=== PATIENT | male | born 1935 | race African-American/Black ===

== ENCOUNTER 2017-06-13 15:32 | Inpatient (IN) ==
[2017-06-13] MEDS ORDERED: NS 1,000 ML IV ONE (15:54)
--- NOTE | 2017-06-13 15:54 | Emergency Department Report ---
General Adult HPI - General Chief complaint: Medical Emergency Stated complaint: incoherent, dehydration Time Seen by Provider: 06/13/17 15:54 - Related Data Home Medications Medication Instructions Recorded Confirmed Sotalol HCl [Sotalol] 80 mg PO DAILY #2 tab 05/29/13 Warfarin Sodium [Coumadin] 5 mg PO #0 tab 06/20/13 Flomax (tamsulosin) 0.4 mg capsule 0.4 mg PO DAILY cap 10/07/16 dnmllhli-oug-hhpcy acid 0.4 1 tab PO QAM 10/07/16 mg-lycopene 300 mcg-lutein 250 mcg tablet Allergies Allergy/AdvReac Type Severity Reaction Status Date / Time No Known Allergies Allergy Verified 06/13/17 15:40 Course Vital Signs Temperature 98.2 F 06/13/17 15:40 Pulse Rate 105 H 06/13/17 15:40 Respiratory Rate 06/13/17 15:40 Blood Pressure 70/46 06/13/17 15:40 Pulse Oximetry 97 06/13/17 15:40 Temperature 98.2 F 06/13/17 15:40 Pulse Rate 105 H 06/13/17 15:40 Respiratory Rate 06/13/17 15:40 Blood Pressure 70/46 06/13/17 15:40 Pulse Oximetry 97 06/13/17 15:40 Disposition Prescriptions: No Action Sotalol HCl [Sotalol] 80 mg PO DAILY #2 tab Warfarin Sodium [Coumadin] 5 mg PO #0 tab ovrxckzh-zbj-kktxv acid 0.4 mg-lycopene 300 mcg-lutein 250 mcg tablet 1 tab PO QAM Flomax (tamsulosin) 0.4 mg capsule 0.4 mg PO DAILY cap Referrals: Pedro Mane II, MD [Primary Care Provider] -
[2017-06-13] MEDS: SALINE FLUSH 10ml SYRINGE IVF PRN ×2 (15:58→18:55)
--- OUTSIDE RECORDS SUMMARY | 2017-06-13 16:03 | External Medical Summary ---
:1935 Author Organization [employer] Care Team Providers Name Role Phone Breanna Dempsey Provider Role Unavailable Allergies, Adverse Reactions, Alerts Substance Reaction Event Type N.K.D.A. 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 Medications Medication Code Code Instructions Start End Date Status Dosage System Date Coumadin NDC 58420-49 5 MG Orally Once as dir 72-01 a day Hydrocodone-Gus NDC 15462-21 5-325 MG Orally 1 tablet as taminophen 65-01 prn needed Coumadin NDC 54910-90 5 MG Orally as as directed 24-35 directed Sotalol HCl NDC 18358-22 80 MG Orally 1 tablet 61-01 twice a day Tamsulosin HCl NDC 48380-78 0.4 MG Orally 1 capsule 30 38-01 Once a day minutes after the same meal each day Procedures Procedure Coding System Code Date Office Visit, Est Pt., Level 3 CPT-4 00007 Feb 05, 2016 ELECTROCARDIOGRAM, COMPLETE CPT-4 51717 Feb 05, 2016 Vital Signs Date/Time: Feb 05, 2016 BMI 20.95 Index Weight 146 lbs Height 70 in Cardiac Monitoring Heart Rate 85 /min Oximetry 98% % Blood Pressure Diastolic 70 mm Hg Blood Pressure Systolic 130 mm Hg Results No Known Results Summary Purpose [employer] Submission
--- OUTSIDE RECORDS SUMMARY | 2017-06-13 16:03 | External Medical Summary ---
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
--- OUTSIDE RECORDS SUMMARY | 2017-06-13 16:03 | External Medical Summary ---
[...] Medications Results No Known Results Summary Purpose [employer] Submission
--- NOTE | 2017-06-13 16:51 | CT Scan Report ---
EXAM: CT head/brain wo con COMPARISON: 08/24/2013. 08/19/2010. 09/08/2005. HISTORY: altered mental status [place] [facility] [place]CHNI[place]: Without IV contrast, axial images were obtained through the brain and reviewed in brain, soft tissue, bone, and subdural windows. The current CT scan was performed using radiation dose-reduction techniques. FINDINGS:There is again seen a hyperdense suprasellar mass with bony erosive changes to the sella turcica extending from the sella into the suprasellar region and into the posterior left frontal region. This measures at least 4 cm AP x 2.6 cm transverse and previously measured 3.5 cm AP x 2.3 cm transverse and appears more prominent than prior exam. The CSF spaces are prominent likely related to atrophy in keeping with age. Periventricular deep white matter hypodensities are noted likely related to small vessel ischemic disease. The quadrigeminal plate cisterns are intact. The worley-white junctions are distinct. No sulcal effacement is identified. The basal ganglia, posterior fossa and brainstem region appear unremarkable. No osseous abnormalities are identified. The paranasal sinuses and mastoid air cells are clear. IMPRESSION: 1. There is again seen a hyperdense sella and suprasellar mass extending into the left posterior frontal region. This appears more prominent than prior exam and may be related to a pituitary macroadenoma or meningioma. 2. Atrophy in keeping with age. 3.. Periventricular deep white matter hypodensities are noted likely related to small vessel ischemic disease. Note: This report was generated soon after the exam was performed and is immediately available to the ordering clinician on 06/13/2017 4:46 PM. .
--- NOTE | 2017-06-13 17:23 | XRay Report ---
EXAM: XR chest 2V COMPARISON: 06/20/2013. HISTORY: altered mental status . FINDINGS:EKG leads and wires project over the chest. Pacemaker and pacer wires are in place and are stable. Sternotomy wires are in place. The cardiomediastinal silhouette is within limits of normal. The pulmonary vascularity appears unremarkable. The lungs are clear. There is no evidence for pleural effusion. There is no evidence for a pneumothorax. No osseous abnormalities are identified. IMPRESSION: Unremarkable exam. No acute process identified. LOCATION OF DICTATION: [facility] – [place] .
--- NOTE | 2017-06-13 18:07 | History & Physical Report ---
History of Present Illness Date: 06/13/17 Chief complaint: incoherent HPI: "Neema" Tori is a 81 year old male who was in his typical state of health until his found him "incoherent" this morning. He was confused and not talking coherently. His stepson, who was able to provide some PMH and ROS, stated that Neema complained of not feeling well today and hasn't been eating/ drinking well today. He denies any known falls/trauma. He states that his gait is steady, he's just weak. He's had something similar happen years ago, when his symptoms were actually worse than currently -- at that time his symptoms were attributed to a medication effect. Neema has a completely negative ROS, and his stepson denies other witnessed symptoms. Family took him to the ED, where he was hypotensive with BP of 70/46 -- this improved to 124/57 after 1L fluid bolus. Labs: leukopenia and microcytic anemia (WBC 3.1, hgb 9.5); INR was therapeutic at 2.0; chemistries were unremarkable except for mildly elevated BUN (21), creatinine at upper limits of normal (1.5), and total bili of 1.4. BNP was 4230. Lactate was normal at 1.5. CXR was negative for acute findings. 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 Given his acute encephalopathy and hemodynamic instability, he was admitted to observation status under the hospitalist service. Review of Systems ROS unobtainable: due to mental status - Constitutional Constitutional: Absent: chills, fever(s), weight loss - EENMT Eyes: Absent: change in vision Nose: Absent: obstruction Mouth/Throat: Absent: sore throat, changes in swallowing - Cardiovascular Cardiovascular: Absent: chest pain, palpitations Rhythm: Absent: abnormal rhythm Vascular: Absent: pedal edema - Respiratory Respiratory: Absent: cough, dyspnea - Gastrointestinal Gastrointestinal: Absent: abdominal pain, diarrhea, nausea, vomiting - Genitourinary Genitourinary: Absent: dysuria, hematuria - Musculoskeletal Musculoskeletal: Present: muscle weakness. Absent: abnormal gait, back pain - Integumentary/Breasts Integumentary: Absent: rash, wounds - Neurological Neurological: Present: confusion, weakness. Absent: abnormal gait, dizziness, frequent falls, numbness, paresthesias - Psychiatric Psychiatric: Absent: anxiety, depression - Endocrine Endocrine: Absent: palpitations - Hematologic/Lymphatic Hematologic/Lymphatic: Present: easy bleeding - Allergic/Immunologic Allergic/Immunologic: Absent: seasonal rhinorrhea Past Medical History Pituitary adenoma (inoperable) A-fib, on Coumadin CAD BPH Surgical History: Pacemaker. CABG Family History Updates: Both parents had Alzheimer's. Father around age 80 ; mother later in her 80s. - Social History Smoking status: Current every day smoker (2-3 cigarettes daily, but he doesn't inhale) Substance use type: does not use Alcohol intake frequency: former alcohol drinker (quit 30 years ago) Household members: spouse Current occupational status: employed Current occupation: [employer] Social history: PCP: Dr. Mane CV: ? Medications Home Medications Medication Instructions Recorded Confirmed Type Warfarin Sodium [Coumadin] 5 mg PO DAILY #0 tab 06/20/13 06/13/17 History Ascorbate Calcium [Vitamin C] 500 mg PO DAILY 06/13/17 06/13/17 History Azithromycin [Azithromycin] 250 mg PO DAILY 06/13/17 06/13/17 History Ferrous Sulfate [Iron] 325 mg PO DAILY 06/13/17 06/13/17 History Finasteride [Proscar] 5 mg PO DAILY 06/13/17 06/13/17 History Omeprazole 40 mg PO DAILY 06/13/17 06/13/17 History PredniSONE [Deltasone 20 mg] 20 mg PO DAILY 06/13/17 06/13/17 History Sotalol [Betapace] 80 mg PO BID 06/13/17 06/13/17 History Tamsulosin [Flomax] 0.4 mg PO DAILY 06/13/17 06/13/17 History Allergies Allergy/AdvReac Type Severity Reaction Status Date / Time No Known Allergies Allergy Verified 06/13/17 15:40 Exam Vital Signs: Temperature 98.2 F 06/13/17 15:40 Pulse Rate 78 06/13/17 17:42 Respiratory Rate 20 06/13/17 17:42 Blood Pressure 124/57 06/13/17 17:42 Pulse Oximetry 100 06/13/17 17:42 - Constitutional Present: no acute distress, well nourished, well developed, thin - Routine HEENT Exam Head: Present: normocephalic, atraumatic Eye: Present: EOMI, PERRL, conjunctival icterus (mild). Absent: scleral injection ENT: Present: mucous membranes moist Comments: pt only agreed to open his mouth for <1 sec., limiting oral inspection - Routine Neck Exam Present: supple - Routine Respiratory Exam Present: CTA bilaterally - Routine Cardiovascular Exam Present: murmur (3/6), irregularly irregular - Routine Abdominal Exam Present: soft, normoactive bowel sounds, non distended, non tender - Routine Extremities Exam Present: no edema, pulses intact. Absent: calf tenderness - Routine Skin Exam Present: intact, dry, warm - Routine Neurological Exam Present: alert, CN II-XII intact (grossly; though exam was somewhat limited ), moving all extremities, vision grossly intact, hearing grossly intact, normal speech. Absent: oriented X3 (oriented to person, place. He knew it was June but did not answer what year it was.) - Routine Psychiatric Exam Absent: normal thought process Results - Labs CBC & Chem 7: 06/13/17 15:57 06/13/17 15:57 - Imaging and Cardiology CT scan - head Status: image reviewed by me Additional comments: CT head/brain without contrast IMPRESSION: 1. There is again seen a hyperdense sella and suprasellar mass extending into the left posterior frontal region. This appears more prominent than prior exam and may be related to a pituitary macroadenoma or meningioma. 2. Atrophy in keeping with age. 3.. Periventricular deep white matter hypodensities are noted likely related to small vessel ischemic disease. Chest x-ray Status: image reviewed by me Additional comments: unremarkable Assessment and Plan (1) Encephalopathy acute Current visit: Yes Status: Acute Assessment and Plan: IMPRESSION Acute encephalopathy Hemodynamic instability/hypotension - improved with IVF Underweight Hyperbilirubinemia (POA) Microcytic anemia Pituitary adenoma (inoperable) A-fib, on Coumadin CAD BPH PLAN Admit, obs status. IVF: NS at 125 ml/hr for bp support & hydration. Hold sotalol and meds for BPH. Consult speech therapy d/t encephalopathy Consider MR brain d/t encephalopathy and hx of pituitary adenoma Check prealbumin and TSH d/t low BMI Check iron studies d/t microcytic anemia Consult pharmacy for Coumadin mgt. No known DPOA. Full code at this time per stepson. PCP: Dr. Mane. [place] Assessment as above with: Mild PCM - prealbumin 10.1 DVT Prophylaxis: Coumadin Resuscitation Status: Full Code - Physician Narrative Physician: Russ Quinn MD Narrative: Date: 06/13/17 Time: 1924 Have independently interviewed and examined pt. Chart reviewed. Case discussed with ED physician and my [employer]. Care plan developed with my supervision; agree with above. Not been eating or drinking well the last 2 days. Hasn't been having ab pain, n/ v, or diarrhea. Today, much more confused. Not able to interact verbally as normal-would answer questions with 'It's Tuesday.' Brought to ED for evaluation. Initial BP low, but improved with IVF. Lab unremarkable. CT brain showing sight progression of prior know lesion but no bleeding. Placed in OBS status for hydration and further evaluation. By the time of my interview and exam, patient much more awake, alert, and able to converse. Lungs: decreased, no distress CV: regular with click AB: soft nt/nd Ext: thin and without edema MSE: awake alert Plan: OBS for hydration. Will hold on Flomax due to low BP in ED. PT/OT to evaluate patient's functional status tomorrow. Monitor INR due to warfarin use. Recheck lab in am. Encouraging that patient is starting to become more awake and alert-hope for continued improvement. Hospital Course Summary Disclaimer: The visit summary below is not to be considered part of the above Progress Note. Hospital Course: 06/13 Admit, obs status. IVF: NS at 125 ml/hr for bp support & hydration. Hold sotalol and meds for BPH. Consult speech therapy d/t encephalopathy Consider MR brain d/t encephalopathy and hx of pituitary adenoma Check prealbumin and TSH d/t low BMI Check iron studies d/t microcytic anemia Consult pharmacy for Coumadin mgt. No known DPOA. Full code at this time per stepson. PCP: Dr. Mane.
[2017-06-13] MEDS ORDERED: WARFARIN - PHARMACY CONSULT MC ONE ×2 (18:26→19:28)
[2017-06-13] MEDS ORDERED: NS 1,000 ML IV SCH (18:30)
--- NOTE | 2017-06-13 18:46 | Pharmacy Consult ---
Pharmacy Consult-Warfarin - Consult Information Warfarin consult noted by Dahlia Lynne APRN for Mr Valle. Med rec shows he had a 5mg warfarin dose this morning. Will wait until tomorrow to dose again. Thank you.
[2017-06-13] MEDS ORDERED: BISACODYL 10 MG SUPPOSITORY RECTALLY PRN (19:28)
[2017-06-13] MEDS ORDERED: ONDANSETRON 4 MG/2 ML INJECTION IVP PRN (19:28)
[2017-06-13] MEDS ORDERED: ACETAMINOPHEN 500 MG TABLET PO PRN (19:28)
[2017-06-13] MEDS ORDERED: POLYETHYL GLYCOL 3350 17gm PACKET PO PRN (19:28)
[2017-06-13] MEDS: NS 1,000 ML IV SCH (20:25)
[2017-06-13] MEDS ORDERED: SOTALOL 80 MG TABLET PO SCH (21:00)
[2017-06-14] MEDS: NS 1,000 ML IV SCH ×3 (02:46→20:57)
[2017-06-14] MEDS ORDERED: WARFARIN - PHARMACY CONSULT MC ONE (06:45)
[2017-06-14] MEDS ORDERED: OMEPRAZOLE 20 MG CAPSULE PO SCH (06:45)
[2017-06-14] MEDS ORDERED: FERROUS SULFATE 324 MG TABLET PO SCH (08:00)
--- NOTE | 2017-06-14 08:29 | Pharmacy Consult ---
Pharmacy Consult-Warfarin - Laboratory Information 06/14/17 05:02 INR 2.03 H - Consult Information Warfarin consult: day 2 81 y.o. M with history of a. fib and chronic anticoagulation with warfarin. Home warfarin dose: Warfarin 5 mg po daily. goal INR range= 2.0 to 3.0 date INR dose 06/13 2.00 5 mg (taken at home) 06/14 2.03 plan: 5 mg INR is therapeutic. Will give home dose of 5 mg po daily. Pharmacy will monitor and adjust as needed. Thank you, Silvia Skinner formerly [facility]
[2017-06-14] MEDS: SOTALOL 80 MG TABLET PO SCH ×2 (08:32→20:57)
[2017-06-14] MEDS ORDERED: NON-FORMULARY MEDICATION 1 EACH EACH (Ferrous Sulfate [Iron] 325 MG) PO SCH (09:00)
[2017-06-14] MEDS ORDERED: NON-FORMULARY MEDICATION 1 EACH EACH (Omeprazole [Omeprazole] 40 MG) PO SCH (09:00)
[2017-06-14] MEDS ORDERED: WARFARIN 5 MG TABLET PO SCH (12:00)
--- NOTE | 2017-06-14 12:17 | Progress Note ---
- Date 06/14/17 Subjective: Neema was awake, alert and oriented x2. He responded better compared to yesterday. He was able to tell me he was in the hospital, but when I asked what city he was in he replied "the hospital", twice. His nurse stated that earlier today he was very drowsy, and was unable to tell him where he was. He's been ambulatory and had not appeared to be weak. Neema denies any chest pain, dyspnea , headache, weakness, or dizziness. Objective Vital signs: Temperature 99.7 F 06/14/17 07:56 Pulse Rate 80 06/14/17 08:32 Respiratory Rate 18 06/14/17 07:56 Blood Pressure 134/64 06/14/17 07:56 Pulse Oximetry 97 06/14/17 07:56 Height/Weight/BMI: Height 1.75 m Weight 59.7 kg Body Mass Index 19.5 - Constitutional Present: no acute distress, well nourished, well developed, thin - Routine HEENT Exam Head: Present: normocephalic Eye: Present: EOMI. Absent: conjunctival icterus, scleral injection ENT: Present: mucous membranes moist - Routine Respiratory Exam Present: CTA bilaterally - Routine Cardiovascular Exam Present: murmur, irregularly irregular - Routine Abdominal Exam Present: soft, normoactive bowel sounds, non distended, non tender - Routine Extremities Exam Present: no edema, pulses intact - Routine Back/Spine/Pelvis Exam Back/Spine: Present: full ROM - Routine Musculoskeletal Exam Musculoskeletal: Present: moving extremities well - Routine Skin Exam Present: intact, dry, warm - Routine Neurological Exam Present: alert, CN II-XII intact, moving all extremities, vision grossly intact , hearing grossly intact, normal speech. Absent: oriented X3, motor deficit, facial asymmetry - Routine Psychiatric Exam Present: cooperative Results - Labs CBC & Chem 7: 06/14/17 05:02 06/14/17 05:02 Assessment and Plan (1) Encephalopathy acute Current visit: Yes Status: Acute Assessment and Plan: IMPRESSION Acute encephalopathy Possible GI bleed Hemodynamic instability/hypotension - improved with IVF Underweight with mild PCM Hyperbilirubinemia (POA) Pancytopenia, chronic Pituitary macroadenoma (inoperable) A-fib, on Coumadin Hx of aortic valve replacement (1990); pacemaker (2002) CKD stage III BPH PLAN Able to access [facility] chart today: PMH of iron-def anemia, CKD stage 3, A-fib, aortic valve replacement (not CABG) microscopic hematuria; ulcer several years ago, attributed to EtOH (quit drinking in 1988). He follows with Dr. Ch for pituitary macroadenoma, who recommended conservative tx in 2005 (no known f/ u since that time). He had an echo on 01/27/16, read by Dr. Oliva at [facility], showing EF 55-60%, mild LVH, biatrial enlargement, trace MR, mild TR , prosthetic aortic valve. He was dx with bronchitis on 05/11/17 and was treated with azithromycin and prednisone taper. He saw Dr. Fredi Carr for the first time on 05/26/17 for hematuria and prostatitis and was started on finasteride in addition to Flomax and cystoscopy was set up. CBCs dating back through 2015 revealed pancytopenia, with typical hgb of 10, platelets 110-150. I also spoke with Shanta Valle, Neema's . She states that he used to have hypoglycemia and he became very confused and weak and his thought he had a seizure. However, this is when he was drinking alcohol and it hasn't occurred since he quit drinking. She doesn't think he's seen anyone for his pancytopenia , but reports that he's had hematuria for 4-6 weeks. She also reports that he hasn't been eating well recently, and c/o stomach pain on 06/11/17, and only had a bowl of chicken soup on 06/12/17 since he began complaining of stomach pain. He 's been having diarrhea, which has been watery and black in color (but she also noted that he has been on iron tablets). She doesn't think he's ever had a colonoscopy (he was once scheduled for one but he didn't have it done); she also doesn't think he's ever had an EGD. Encephalopathy improving, but still persists. BUN and creatinine improved with IVF. Iron studies pending, hgb decreased from 9.5 to 8.3. Speech evaluation pending. INR therapeutic. Will start checking regular blood sugars. Check stool for occult blood, possible GI bleed with 's report of black-colored diarrhea and abdominal pain. Consider surgical consultation. Check GI panel. Hold Coumadin. Continue IVF. Chronic pancytopenia -- likely r/t alcohol use, but may need further heme evaluation. Dr. Yung has been consulted and evaluated the patient. Possible underlying dementia, but more than likely encephalopathy is metabolic in nature, ie dehydration. Change status to inpatient for ongoing encephalopathy and possible GI bleed. DVT Prophylaxis: SCD's GI Prophylaxis: other Resuscitation Status: Full Code - Time spent with patient Time with patient PN: 50 minutes (and discussing with spouse, Dr. Yung, and Dr. Gimenez) - Physician Narrative Physician: Dona Gimenez MD Narrative: Date: 06/14/17 Time: 1844 I have independently evaluated and examined this patient. I reviewed the chart, the patient's history, and the POSTING CLERK/PA's documented findings as above. We discussed and formulated the assessment and plan as above with additions as below: Neema was up in a chair when seen he denied dyspnea or pain although winced frequently associated with abdominal gurgling. He reported that his abdomen makes noise like that some time. He could not identify where he was and appeared distracted. NAD, confused Respirations nonlabored with clear breath sounds. Regular rhythm, no mechanical click. Abdomen soft, distended, hyperactive bowel sounds Results of prior workups reviewed with Rebecca Lynne; patient had a renal CT in May at which time the spleen was not enlarged and liver was described as having normal contours. No ascites was reported. Dr. Yung recommended reassessing macroadenoma and consideration of endocrine consultation. Chest x-ray reviewed by myself-NAD. Hold warfarin-stools have not been grossly bloody or melanotic per nursing report. Continue to monitor hemoglobin. If lower tomorrow will consult surgery. Hospital Course Summary Disclaimer: The visit summary below is not to be considered part of the above Progress Note. Hospital Course: 06/13/17 Admit, obs status. IVF: NS at 125 ml/hr for bp support & hydration. Hold sotalol and meds for BPH. Consult speech therapy d/t encephalopathy Consider MR brain d/t encephalopathy and hx of pituitary adenoma Check prealbumin and TSH d/t low BMI Check iron studies d/t microcytic anemia Consult pharmacy for Coumadin mgt. No known DPOA. Full code at this time per fadyon. PCP: Dr. Mane. 06/14/17 Able to access [facility] chart today: PMH of iron-def anemia, CKD stage 3, A-fib, aortic valve replacement (not CABG) microscopic hematuria; ulcer several years ago, attributed to EtOH (quit drinking in 1988). He follows with Dr. Ch for pituitary macroadenoma, who recommended conservative tx in 2005 (no known f/ u since that time). He had an echo on 01/27/16, read by Dr. Oliva at [facility], showing EF 55-60%, mild LVH, biatrial enlargement, trace MR, mild TR , prosthetic aortic valve. He was dx with bronchitis on 05/11/17 and was treated with azithromycin and prednisone taper. He saw Dr. Fredi Carr for the first time on 05/26/17 for hematuria and prostatitis and was started on finasteride in addition to Flomax and cystoscopy was set up. CBCs dating back through 2015 revealed pancytopenia, with typical hgb of 10, platelets 110-150. I also spoke with Shanta Valle, Neema's . She states that he used to have hypoglycemia and he became very confused and weak and his thought he had a seizure. However, this is when he was drinking alcohol and it hasn't occurred since he quit drinking. She doesn't think he's seen anyone for his pancytopenia , but reports that he's had hematuria for 4-6 weeks. She also reports that he hasn't been eating well recently, and c/o stomach pain on 06/11/17, and only had a bowl of chicken soup on 06/12/17 since he began complaining of stomach pain. He 's been having diarrhea, which has been watery and black in color (but she also noted that he has been on iron tablets). She doesn't think he's ever had a colonoscopy (he was once scheduled for one but he didn't have it done); she also doesn't think he's ever had an EGD. Encephalopathy improving, but still persists. BUN and creatinine improved with IVF. Iron studies pending, hgb decreased from 9.5 to 8.3. Speech evaluation pending. INR therapeutic. Will start checking regular blood sugars. Check stool for occult blood, possible GI bleed with 's report of black-colored diarrhea and abdominal pain. Consider surgical consultation. Check GI panel. Hold Coumadin. Continue IVF. Chronic pancytopenia -- likely r/t alcohol use, but may need further heme evaluation. Dr. Yung has been consulted and evaluated the patient. Possible underlying dementia, but more than likely encephalopathy is metabolic in nature, ie dehydration. Change status to inpatient for ongoing encephalopathy and possible GI bleed. Addendum entered and electronically signed by Rebecca Lynne APRN 06/14/17 14: 22: , Shanta, would like periodic updates. She prefers to be called at her home [phone] but if she doesn't answer there we can try her cell phone at [phone].
[2017-06-14 16:44] VITALS: BMI 19.4
--- NOTE | 2017-06-14 17:40 | Consultation ---
DATE OF CONSULTATION 06/14/[address] Gimenez CHIEF COMPLAINT Confusion. HISTORY OF PRESENT ILLNESS Patient is a 81-year-old male with history of dementia, a large, nonoperable pituitary macroadenoma, coronary artery disease, atrial fibrillation and prostate problem. The patient presented with increased confusion and mental status change prior to admission. The patient has been complaining of diarrhea and dehydration as per his . The patient's condition has improved gradually during admission. He has had no focal weakness or numbness. A CT of the head done on June 13 showed evidence of the suprasellar mass lesion corresponding with the pituitary macroadenoma. This appeared to be more prominent than the prior examination. There was also increased brain atrophy associated with aging and dementia. Patient's lab work showed severe neutropenia and anemia problem. His BUN was elevated. His sodium level was normal. His urine testing showed mild signs of infection including increased bacteria in the urine. On physical examination the patient was awake, alert, oriented to self and condition. He has difficulty with time and place. The patient's speech was slow and articulate. His motor examination was normal bilaterally, graded as 5- /5 bilaterally. Sensory examination was symmetrical to light touch and pinprick. Deep tendon reflexes were 2/4. Plantar reflexes were in flexion bilaterally. Coordination for [id number] were slow and slightly dysmetric bilaterally. IMPRESSION Metabolic encephalopathy associated with history of dehydration, mild urine infection and dementia symptoms. There are no signs of stroke on examination and on the CT of the head.. The patient has a large macroadenoma lesion which is not operable as per Neurosurgery. PLAN 1. Continue with treatment for dehydration and rule out any sepsis. The patient may benefit from long-term treatment for dementia including the usage of Aricept and Namenda. 2. The patient may follow up with Neurosurgery regarding his pituitary macroadenoma. He may also benefit from having an Endocrinology evaluation for that. [facility]
[2017-06-15] MEDS: NS 1,000 ML IV SCH ×4 (06:43→17:02)
[2017-06-15] MEDS: SOTALOL 80 MG TABLET PO SCH ×2 (07:02→21:53)
[2017-06-15] MEDS: OMEPRAZOLE 40 MG PO SCH (07:03)
[2017-06-15] MEDS: FERROUS SULFATE 324 MG PO SCH (09:28)
--- NOTE | 2017-06-15 12:50 | XRay Report ---
INDICATION: decreased breath sounds, fever PROCEDURE: CHEST 2-VIEWS UPRIGHT (PA & LAT) Encounter: Initial COMPARISON: June 13, 2017 FINDINGS: Suggestion of fine hazy opacity in the right upper lobe with mild interstitial prominence. No lobar consolidation. No pleural effusion or pneumothorax. Heart size and mediastinal contours are stable. Prior CABG with a left pacemaker. Impression: Fine interstitial infiltrates could represent mild edema or atypical/viral pneumonia. .
--- NOTE | 2017-06-15 19:06 | Progress Note ---
- Date 06/15/17 Subjective: Mr. Valle reports he feels better today. He denies dyspnea, nausea, diarrhea, dysuria, fever, chills, or weakness. He denies chronic headaches or pain of any sort. He reports his appetite is better although he acknowledges he wasn't eating very well for several days. Objective Vital signs: Temperature 99.7 F 06/15/17 07:17 Pulse Rate 63 06/15/17 15:56 Respiratory Rate 18 06/15/17 15:56 Blood Pressure 112/61 06/15/17 15:56 Pulse Oximetry 98-RA 06/15/17 15:56 I/O 3760/175 NAD, alert Conjugate gaze, EOMI, conjunctiva clear, oropharynx clear Respirations nonlabored, good airflow, breath sounds clear anteriorly/upper posterior kearns Regular rhythm, S1 S2-S2 click Abdomen soft, nontender, and bowel sounds are active Without peripheral edema MAEW Cooperative, fluent speech, oriented to [facility], 2017 Height/Weight/BMI: Height 1.75 m Weight 62.4 kg Body Mass Index 19.4 Results - Labs CBC & Chem 7: 06/15/17 05:27 06/15/17 05:27 Labs: INR 2.15 Iron 30, TIBC 245, iron saturation 12% Prolactin 8.9 Hemoccult 1 negative, stool panel including C. difficile negative - Imaging and Cardiology Chest x-ray Status: image reviewed by me (NAD, pacemaker left chest, lungs clear) Assessment and Plan (1) Encephalopathy acute Current visit: Yes Status: Acute Assessment and Plan: IMPRESSION Acute encephalopathy Possible GI bleed, appears unlikely Hemodynamic instability/hypotension -resolved Underweight with mild PCM Hyperbilirubinemia (POA) Pancytopenia, chronic Pituitary macroadenoma (inoperable) A-fib, on Coumadin Hx of aortic valve replacement (1990); pacemaker (2002) CKD stage III BPH PLAN Neema is much more alert today and able to answer questions appropriately and provide history by himself. He has not had any bowel movements today and stools yesterday reported to be negative for blood or melena. Patient reports that he's had low white count for a number of years although all cell lines appear to be dropping progressively. I discussed the option of hematology consult with the patient and subsequently have asked Dr. Shafer to see him regarding progressive pancytopenia. Iron studies consistent with chronic disease. Reassess counts in the morning. Renal function has normalized with fluids; discontinue IV fluids and reassess ability to maintain adequate oral intake. Macroadenoma present, TSH/prolactin normal-likely nonfunctioning. Discussed with Dr. Shafer-planned bone marrow biopsy tomorrow with flow cytometry and cytogenetics. DVT Prophylaxis: Coumadin Resuscitation Status: Full Code - Physician Narrative Narrative: Date: 06/15/17 Time: 1902 Hospital Course Summary Disclaimer: The visit summary below is not to be considered part of the above Progress Note. Hospital Course: 06/13/17 Admit, obs status. IVF: NS at 125 ml/hr for bp support & hydration. Hold sotalol and meds for BPH. Consult speech therapy d/t encephalopathy Consider MR brain d/t encephalopathy and hx of pituitary adenoma Check prealbumin and TSH d/t low BMI Check iron studies d/t microcytic anemia Consult pharmacy for Coumadin mgt. No known DPOA. Full code at this time per henry. PCP: Dr. Mane. 06/14/17 Able to access [place] chart today: PMH of iron-def anemia, CKD stage 3, A-fib, aortic valve replacement (not CABG) microscopic hematuria; ulcer several years ago, attributed to EtOH (quit drinking in 1988). He follows with Dr. Ch for pituitary macroadenoma, who recommended conservative tx in 2005 (no known f/ u since that time). He had an echo on 01/27/16, read by Dr. Oliva at [facility], showing EF 55-60%, mild LVH, biatrial enlargement, trace MR, mild TR , prosthetic aortic valve. He was dx with bronchitis on 05/11/17 and was treated with azithromycin and prednisone taper. He saw Dr. Fredi Carr for the first time on 05/26/17 for hematuria and prostatitis and was started on finasteride in addition to Flomax and cystoscopy was set up. CBCs dating back through 2015 revealed pancytopenia, with typical hgb of 10, platelets 110-150. I also spoke with Shanta Valle, Neema's . She states that he used to have hypoglycemia and he became very confused and weak and his thought he had a seizure. However, this is when he was drinking alcohol and it hasn't occurred since he quit drinking. She doesn't think he's seen anyone for his pancytopenia , but reports that he's had hematuria for 4-6 weeks. She also reports that he hasn't been eating well recently, and c/o stomach pain on 06/11/17, and only had a bowl of chicken soup on 06/12/17 since he began complaining of stomach pain. He 's been having diarrhea, which has been watery and black in color (but she also noted that he has been on iron tablets). She doesn't think he's ever had a colonoscopy (he was once scheduled for one but he didn't have it done); she also doesn't think he's ever had an EGD. Encephalopathy improving, but still persists. BUN and creatinine improved with IVF. Iron studies pending, hgb decreased from 9.5 to 8.3. Speech evaluation pending. INR therapeutic. Will start checking regular blood sugars. Check stool for occult blood, possible GI bleed with 's report of black-colored diarrhea and abdominal pain. Consider surgical consultation. Check GI panel. Hold Coumadin. Continue IVF. Chronic pancytopenia -- likely r/t alcohol use, but may need further heme evaluation. Dr. Yung has been consulted and evaluated the patient. Possible underlying dementia, but more than likely encephalopathy is metabolic in nature, ie dehydration. Change status to inpatient for ongoing encephalopathy and possible GI bleed. 06/15/17 Neema is much more alert today and able to answer questions appropriately and provide history by himself. He has not had any bowel movements today and stools yesterday reported to be negative for blood or melena. Patient reports that he's had low white count for a number of years although all cell lines appear to be dropping progressively. I discussed the option of hematology consult with the patient and subsequently have asked Dr. Shafer to see him regarding progressive pancytopenia. Iron studies consistent with chronic disease. Reassess counts in the morning. Renal function has normalized with fluids; discontinue IV fluids and reassess ability to maintain adequate oral intake. Macroadenoma present, TSH/prolactin normal-likely nonfunctioning.
--- NOTE | 2017-06-15 22:29 | Consultation ---
DATE OF CONSULTATION 06/15/2017 REASON FOR CONSULTATION Pancytopenia. HISTORY OF PRESENT ILLNESS This is a 81-year-old -[place] male patient with history of chronic anemia. His hemoglobin back in 2013 was 10. Initial workup at that time was not diagnostic. Serum protein electrophoresis at that time was normal. Serum B12 was normal. Iron normal. He presented with confusion and was found to have dehydration. He improved with hydration. CBC showed white count 2.6, hemoglobin 7.7, platelet count 119,000, neutrophils 36%. Total bilirubin 1.4, alkaline phosphatase 153, total protein 8.4 with globulin 3.9. Urine has 3+ blood. Stool for occult blood negative. Chest x-ray showed fine interstitial infiltrates suggestive of atypical pneumonia. The patient has chronic fatigue and shortness of breath. REVIEW OF SYSTEMS CONSTITUTIONAL: Fatigue. No fever. No weight loss. RESPIRATORY: Mild shortness of breath. No cough. No hemoptysis. CARDIOVASCULAR: No chest pain. History of atrial fibrillation on Coumadin. GASTROINTESTINAL: No nausea or vomiting. Bowel habits are normal. No blood in the stool. GENITOURINARY: No urinary problems. He has blood in urine by urinalysis. No victor m hematuria. MUSCULOSKELETAL: No joint pain. PAST MEDICAL HISTORY 1. Atrial fibrillation on Coumadin. 2. CAD, status post CABG. 3. BPH. 4. History of pituitary macroadenoma, not operable by Neurosurgery. PHYSICAL EXAMINATION GENERAL: Comfortable in bed. VITAL SIGNS: Stable, not in acute distress. RESPIRATORY: Lungs are clear to auscultation. No wheezing or crackles. CARDIOVASCULAR: No murmur. No JVD. ABDOMEN: Benign. No masses or hepatosplenomegaly. Bowel sounds are positive. ANESTHESIOLOGY TECH: No focal neurologic deficits. Cranial nerve II through XII normal. SKIN: No rash. LYMPHATIC: No peripheral lymphadenopathy. MUSCULOSKELETAL: Unremarkable. ASSESSMENT 1. Pancytopenia most likely due to bone marrow * * or myelodysplastic syndrome. 2. Atrial fibrillation on Coumadin. 3. Pituitary macroadenoma, not operable by Neurosurgery. 4. Microscopic hematuria. RECOMMENDATIONS/PLAN 1. Bone marrow aspiration and biopsy with flow cytometry and cytogenetics to be done by Interventional Radiology. 2. Blood transfusion as needed. The patient does not seem that he needs blood transfusion at this time. 3. Check haptoglobin and direct Loretta. MTDD
[2017-06-16] MEDS: OMEPRAZOLE 40 MG PO SCH (06:38)
[2017-06-16] MEDS: SOTALOL 80 MG TABLET PO SCH (06:38)
[2017-06-16] MEDS: FERROUS SULFATE 324 MG PO SCH (08:30)
[2017-06-16] MEDS ORDERED: NS FLUSH BAG 500ml IV PRN (10:17)
[2017-06-16 11:38] VITALS: RESP 16; TEMP 98.1
[2017-06-16] MEDS ORDERED: LIDOCAINE 1% (10mg/ml) 5ml PF SDV ONE ×2 (12:48→12:55)
[2017-06-16] MEDS ORDERED: BUPIVACAINE 0.5% (5mg/ml) PF 30ml INJ SDV ONE (12:48)
--- NOTE | 2017-06-16 14:35 | CT Scan Report ---
Indication:pancytopenia Procedure:CT biopsy bone marrow CT GUIDED BONE MARROW BIOPSY/ASPIRATION: The procedure including the benefits, risks, and alternatives were explained in detail to the patient. All of his questions were answered. They stated that they understood and wished to proceed. Informed consent was obtained. A pre-procedural timeout was done to verify the correct patient and procedure. Using sterile technique, local Xylocaine and Marcaine anesthesia, and CT guidance, an 11-gauge bone biopsy needle is advanced from a posterior approach into the right iliac bone. Approximately 10 cc of marrow is aspirated and a core biopsy was then taken. The needle was removed. There was no complication. Hemostasis was obtained and a compression bandage was applied. Following this, the patient was taken back to their room on the medical floor in stable condition. Impression: Successful bone marrow biopsy performed from the posterior aspect of the right iliac bone. Thiago Levy RPA/MAGALY performed this under my personal supervision. .
[2017-06-16 15:17] VITALS: BP 112/59; PULSE 67; O2SAT 99
--- NOTE | 2017-06-16 15:20 | Progress Note ---
Oncology Subjective Reclining in hospital bed alone in room at time of my intake. He is alert and oriented 2, knows his name, where he is at, and names current president. Answers questions appropriately. Denies pain currently. Reports some weakness. Denies shortness of air or palpitations. General: No fever, no night sweats. Eyes: No redness, no pain, no diplopia ENT: No mouth sores, no trouble swallowing Cardiac: No chest pain no palpitations Pulmonary: No cough, no shortness of breath, no wheezing Abdomen: No pain, no nausea vomiting, no diarrhea or constipation : No urgency, frequency, dysuria, or hematuria Musculoskeletal: No arthritis, no myalgias Neurological: No headaches, no focal weakness Skin: No rash, no sores Psychiatric: No anxiety, no depression Exam Vital signs: Temperature 98.1 F 06/16/17 15:17 Pulse Rate 67 06/16/17 15:17 Respiratory Rate 16 06/16/17 15:17 Blood Pressure 112/59 06/16/17 15:17 Pulse Oximetry 99 06/16/17 15:17 - Constitutional no acute distress, well developed - Routine HEENT Exam Head: Present: normocephalic Eye: Present: EOMI ENT: Present: mucous membranes moist - Routine Neck Exam Present: supple. Absent: lymphadenopathy, tenderness - Routine Respiratory Exam Present: CTA bilaterally - Routine Cardiovascular Exam Present: RRR, click Comments: S2 click - Routine Abdominal Exam Present: soft, normoactive bowel sounds, non tender - Routine Extremities Exam Present: full ROM. Absent: no edema - Routine Skin Exam Present: intact, dry - Routine Neurological Exam Present: alert, moving all extremities, normal tone - Routine Psychiatric Exam Present: normal affect, cooperative Oncology Results - Labs CBC & Chem 7: 06/16/17 04:15 06/16/17 04:15 Labs: Short CBC 06/16/17 Range/Units 04:15 WBC 3.1 L (4.5-11.0) T/MM3 Hgb 7.2 L (13.5-17.5) GM/DL Hct 23.6 L (41-53) % Plt Count 107 L (130-400) T/MM3 [facility] 06/16/17 04:15 Sodium 140 Potassium 3.9 Chloride 110 H Carbon Dioxide 22 BUN 11.0 Creatinine 0.9 Glucose 86 Calcium 7.8 L Assessment and Plan Assessment and Plan: Assessment 1. Pancytopenia. History of anemia. HGB 06/15/17 is 7.7, today, 06/16/17 HGB is 7.2 2. Atrial fibrillation/coronary artery disease. Status post valve replacement and pacemaker. On Coumadin 3. 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 4. Microscopic hematuria. Plan Patient seen at 10 AM this morning. Reviewed lab findings with patient. With weakness, prior history of anemia, recommend transfusion of one unit packed RBCs. Patient amenable. Scheduled for bone marrow biopsy later today. Await those results. Dr. Banegas to see later today. - Time Spent With Patient Total time spent is greater than 50% in coordination of care (as documented) at patient's floor/unit and/or counseling patient: less than 15 minutes
--- NOTE | 2017-06-16 20:37 | Discharge Summary ---
Discharge Information Date of admission: 06/14/17 13:27 Anticipated date of discharge: 06/16/17 Attending Physician: Dona Gimenez MD Primary care physician: Pedro Mane II, MD Consults: Consulting Provider: Bria Yung Reason For Exam: encephalopathy Consulting Provider: Carmen Shafer Reason For Exam: pancytopenia - Discharge Diagnosis (1) Encephalopathy acute Status: Acute (2) Hypotension Status: Acute (3) Pancytopenia Status: Chronic Acute encephalopathy Hemodynamic instability/hypotension -resolved Dehydration, improved Underweight with mild PCM Possible GI bleed, ruled out Hyperbilirubinemia (POA) Pancytopenia, chronic Pituitary macroadenoma (inoperable) A-fib, on Coumadin Hx of aortic valve replacement (1990); pacemaker (2002) CKD stage III BPH - Procedures Procedures: Bone marrow biopsy with CT guidance in radiology on 06/16/17. - Laboratory Labs: On 06/13/17 (date of admission) white count was 3.1 and hemoglobin 9.5. Platelet count 147K. BUN 21, creatinine 1.5, alkaline phosphatase 153, troponin 0.031, proBNP 4230, prealbumin 10.1, and lactic acid 1.5. TSH 1.82, prolactin 8.9 (within normal limits serum iron 30, TIBC 247, percent saturation 12% on 06/13/17; Hemoccult 2 negative Stool panel for enteric pathogens negative, UA without evidence of infection. 06/16/17 17:28 06/16/17 04:15 History of Present Illness HPI: "Vahid Valle is a 81 year old male who was in his typical state of health until his found him "incoherent" this morning. He was confused and not talking coherently. His stepson, who was able to provide some PMH and ROS, stated that Neema complained of not feeling well today and hasn't been eating/ drinking well today. He denies any known falls/trauma. He states that his gait is steady, he's just weak. He's had something similar happen years ago, when his symptoms were actually worse than currently -- at that time his symptoms were attributed to a medication effect. Neema has a completely negative ROS, and his stepson denies other witnessed symptoms. Family took him to the ED, where he was hypotensive with BP of 70/46 -- this improved to 124/57 after 1L fluid bolus. Labs: leukopenia and microcytic anemia (WBC 3.1, hgb 9.5); INR was therapeutic at 2.0; chemistries were unremarkable except for mildly elevated BUN (21), creatinine at upper limits of normal (1.5), and total bili of 1.4. BNP was 4230. Lactate was normal at 1.5. CXR was negative for acute findings. 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 Given his acute encephalopathy and hemodynamic instability, he was admitted to observation status under the hospitalist service. Objective Vital signs: Temperature 98.1 F 06/16/17 15:17 Pulse Rate 67 06/16/17 15:17 Respiratory Rate 16 06/16/17 15:17 Blood Pressure 112/59 06/16/17 15:17 Pulse Oximetry 99 06/16/17 15:17 NAD, alert, in good spirits Respirations nonlabored, good airflow, breath sounds clear Regular rhythm, metallic S2 click Abdomen soft, nontender Biopsy site at right iliac crest without evidence of bruising or hematoma several hours after biopsy taken Height/Weight/BMI: Height 1.75 m Weight 61.5 kg Body Mass Index 19.4 Hospital Course This is a general summary of the patient's hospital course. For more details refer to the complete medical record. Hospital course: 06/13/17 Admitted with confusion/incoherent state after not eating and drinking well for several days. Blood pressure low on initial assessment. IVF: NS at 125 ml/hr for bp support & hydration. Hold sotalol and meds for BPH. Consult speech therapy d/t encephalopathy Consider MR brain d/t encephalopathy and hx of pituitary adenoma Check prealbumin and TSH d/t low BMI Check iron studies d/t microcytic anemia Consult pharmacy for Coumadin mgt. No known DPOA. Full code at this time per henry. PCP: Dr. Mane. 06/14/17 Able to access [facility] chart today: PMH of iron-def anemia, CKD stage 3, A-fib, aortic valve replacement (not CABG) microscopic hematuria; ulcer several years ago, attributed to EtOH (quit drinking in 1988). He follows with Dr. Ch for pituitary macroadenoma, who recommended conservative tx in 2005 (no known f/ u since that time). He had an echo on 01/27/16, read by Dr. Oliva at [facility], showing EF 55-60%, mild LVH, biatrial enlargement, trace MR, mild TR , prosthetic aortic valve. He was dx with bronchitis on 05/11/17 and was treated with azithromycin and prednisone taper. He saw Dr. Fredi Carr for the first time on 05/26/17 for hematuria and prostatitis and was started on finasteride in addition to Flomax and cystoscopy was set up. CBCs dating back through 2015 revealed pancytopenia, with typical hgb of 10, platelets 110-150. Also spoke with Shanta Valle, Neema's . She states that he used to have hypoglycemia and he became very confused and weak and his thought he had a seizure. However, this is when he was drinking alcohol and it hasn't occurred since he quit drinking. She doesn't think he's seen anyone for his pancytopenia , but reports that he's had hematuria for 4-6 weeks. She also reports that he hasn't been eating well recently, and c/o stomach pain on 06/11/17, and only had a bowl of chicken soup on 06/12/17 since he began complaining of stomach pain. He 's been having diarrhea, which has been watery and black in color (but she also noted that he has been on iron tablets). She doesn't think he's ever had a colonoscopy (he was once scheduled for one but he didn't have it done); she also doesn't think he's ever had an EGD. Encephalopathy improving, but still persists. BUN and creatinine improved with IVF. Iron studies pending, hgb decreased from 9.5 to 8.3. Speech evaluation pending. INR therapeutic. Will start checking regular blood sugars. Check stool for occult blood, possible GI bleed with 's report of black-colored diarrhea and abdominal pain. Consider surgical consultation. Check GI panel. Hold Coumadin. Continue IVF. Chronic pancytopenia -- likely r/t alcohol use, but may need further heme evaluation. Dr. Yung has been consulted and evaluated the patient. Possible underlying dementia, but more than likely encephalopathy is metabolic in nature, ie dehydration. 06/15/17 Neema is much more alert today and able to answer questions appropriately and provide history by himself. He has not had any bowel movements today and stools yesterday reported to be negative for blood or melena. Patient reports that he's had low white count for a number of years although all cell lines appear to be dropping progressively. I discussed the option of hematology consult with the patient and subsequently have asked Dr. Shafer to see him regarding progressive pancytopenia. Iron studies consistent with chronic disease. Reassess counts in the morning. Renal function has normalized with fluids; discontinue IV fluids and reassess ability to maintain adequate oral intake. Macroadenoma present, TSH/prolactin normal-likely nonfunctioning. 06/16/17-discharge Neema feels well today and is anxious to discharge home. He denied dyspnea or pain and reports that he is eating well. Oral intake was improved yesterday with a little over 1-1/2 L intake of fluids orally. He was seen by Dr. Shafer who reported past evaluation of the patient a number of years ago but that counts have deteriorated since that time. Bone marrow biopsy coordinated with interventional radiology and study completed uneventfully early this afternoon. Hemoglobin had dropped further to 7.2 this morning prompting decision to transfuse 1 unit of packed red blood cells prior to discharge today. Posttransfusion hemoglobin was 8.5. White count was 3.1 today and platelet count 107K. The patient's mental status has normalized and his reports she thinks confusion was due to low blood pressures associated with impaired oral intake. Progressive improvement in renal function and dropping hemoglobin with hydration would all support dehydration on presentation. It's unclear why oral intake deteriorated but he is maintaining good oral intake at this time and can be discharged at this time. Dr. Shafer would like to see the patient next Tuesday to review results of bone marrow biopsy with him at that time. Past that he follow-up with Dr. Mane in 1-2 weeks for general reassessment. Because blood pressures have been low normal in the recent past tamsulosin remains on hold but he will resume Proscar. Discharge medication list reports discontinuation of prednisone and azithromycin but the patient had completed a course of those medications in May and he was not taking them at the time of admission. Time spent with patient: discharge greater than 30 minutes Resuscitation Status: Full Code Discharge Plan - Discharge Disposition Discharge Date: 06/16/17 Disposition: 01 Discharged Home, Self-Care *Condition: Stable for Transport Reason For Visit (Visit label in EMR): Weakness,Confusion - Discharge Medications *Discharge Medications: New Ferrous Sulfate [Feosol] 0 mg PO WB tab Continue Warfarin Sodium [Coumadin] 5 mg PO DAILY #0 tab Ascorbate Calcium [Vitamin C] 500 mg PO DAILY Sotalol [Betapace] 80 mg PO BID Ferrous Sulfate [Iron] 325 mg PO DAILY Omeprazole 40 mg PO DAILY Finasteride [Proscar] 5 mg PO DAILY Discontinued Tamsulosin [Flomax] 0.4 mg PO DAILY PredniSONE [Deltasone 20 mg] 20 mg PO DAILY Azithromycin [Azithromycin] 250 mg PO DAILY - Discharge Packet/Instructions *Diet: Regular *Activity: As tolerate *Pain Management/Treatment: Tylenol per package instructions as needed *Wound Care: Monitor bone marrow biopsy site for bleeding or bruising, can remove bandage in one or 2 days. Additional Instructions: Discontinue tamsulosin to see if it helps your blood pressure-if you have trouble urinating without will need to resume at bedtime. With Dr. Shafer for next week on Tuesday-he will recheck your blood counts at that time. Schedule follow-up appointment with Dr. Mane for 1-2 weeks from now as well. *Expected Signs/Symptoms: You may have lightheadedness intermittently a few blood pressure is low *Notify Physician if: You have difficulty eating, dizziness, or further weight loss *During Business Hours Contact: Dr. Mane's office *After Business Hours Contact: Call [facility] at [phone] and ask that the on-call physician be paged for Dr. Mane *Pending Lab/Results: Follow up w/Provider - Referrals/Follow Up *Referrals/Follow Up: Carmen Shafer MD [Physician] - (Next Tuesday-05/22) Pedro Mane II, MD [Primary Care Provider] - 06/27/17 11:00 am (1-2 weeks) - Patient Handouts Patient Handouts: Weakness (GEN), Pancytopenia (GEN) - Dismissal Complete Discharge Instructions are:: Complete Physician Narrative - Narrative Attestation Narrative: Date: 06/16/17 Time: 2033
== END 2017-06-16 18:15 | disposition home or self-care (01) | DRG 71 ==
LOC: MED 15:32 → ED 15:32 → SUATTDRO 17:40 → MED 18:15
PROVIDERS: ADMIT Hospitalist; ATTEND Internal Medicine

== ENCOUNTER 2017-09-23 16:20 | Inpatient (IN) ==
--- OUTSIDE RECORDS SUMMARY | 2017-09-23 16:47 | External Medical Summary ---
[...] Medications Results No Known Results Summary Purpose [employer] Submission
--- OUTSIDE RECORDS SUMMARY | 2017-09-23 16:47 | External Medical Summary ---
:1935 Author Organization [facility] Address [address] [place] [address] Care Team Providers Name Role Phone Scott Oliva Unavailable Unavailable PROBLEMS Type Condition ICD9-CM GIL87-EM Onset Condition SNOMED Code Code Code Dates Status Problem S/P Aortic Valve V43.3 Active 3212423156461 Replacement Problem Dyslipidemia 272.4 Active 969552170 Problem Atrial 427.89 Active 254708056 Tachycardia Problem S/P Pacemaker V45.01 Active 081397841 Placement - Dual Problem Atrial flutter I48.92 Active 5184125 Problem Paroxysmal I48.0 Active 413825432 atrial fibrillation Problem Tobacco abuse Z72.0 Active 58286173 Problem Atrial 427.31 Active 18160758 fibrillation Problem 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 Nov, [place], [place] [id number] [address] August, [facility] [address] [place] [address] fibrillation I48.0 ; Atrial [address] flutter I48.92 ; Presence of prosthetic heart valve Z95.2 ; Presence of cardiac pacemaker Z95.0 ; Tobacco abuse Z72.0 and Pre-operative cardiovascular examination Z01.[address] Jul, [address] [address] Jul, [address] [address] Jul, Atrial flutter I48.92 ; LLC [address] [place] [address] [facility]mal atrial [address] fibrillation I48.0 ; Presence of prosthetic heart valve Z95.2 ; Presence of cardiac pacemaker Z95.0 and Tobacco abuse Z72.[address] [place] Jul, [place] [address] [facility] [address] [facility] Jun, [facility] [place] [address] [facility] [address] [facility] Jun, LLC [facility] [place] [address] [facility] [address] [place] [address] Jun, LLC [employer] [place] [address] [facility] [address] [place] [address] Jun, Atrial flutter I48.92 ; [facility] [employer] [place] [address] fibrillation I48.0 ; Presence of prosthetic heart valve Z95.2 ; Presence of cardiac pacemaker Z95.0 ; Tobacco abuse Z72.0 and Pre-operative cardiovascular examination Z01.[address] Jun, [facility] [address] fibrillation I48.0 ; [place] [address] flutter I48.92 and Tobacco abuse Z72.[address] 15 Jun, 2017 [facility] [place] [address] Jun, LLC [employer] [place] [address] [facility] [address] [place] [address] May, LLC [facility] [place] [address] Apr, [facility] [employer] [place] pacemaker Z95.0 and Sick [address] sinus syndrome I49.5 [facility] [address] [facility] Dec, Atrial flutter I48.92 ; LLC [employer] [place] [facility]mal atrial [address] fibrillation I48.0 ; Presence of prosthetic heart valve Z95.2 ; Presence of cardiac pacemaker Z95.0 and Tobacco abuse Z72.[address] 05 Dec, 2016 [facility] [place] [address] Sep, [facility] [employer] [place] pacemaker Z95.0 and Sick [address] sinus syndrome I49.5 [facility] [address] [facility] Sep, [place] [address] [facility] [address] [facility] Sep, [facility] [place] [address] [facility] [address] [place] [address] August, Atrial flutter I48.92 LLC [place] [address] [facility] [address] [place] [address] 31 Jun, 2016 [facility] [address] [place] pacemaker Z95.0 and Sick [address] sinus syndrome I49.5 [facility] [address] [place] [address] Jun, [place] [address] [facility] [address] [place] [address] Jun, [facility] [place] [address] [facility] [address] [place] [address] Jun, Atrial flutter I48.92 ; LLC [address] [place] [facility] [place] [address] fibrillation I48.0 ; Presence of prosthetic heart valve Z95.2 ; Presence of cardiac pacemaker Z95.0 and Tobacco abuse Z72.[address] 14 Jun, 2016 [facility] [place] [address] [facility] [address] [place] [address] Apr, [facility] [place] [address] Mar, [facility] [place] [address] Jan, Atrial flutter I48.92 ; [facility] [address] [place] [facility] [place] [address] fibrillation I48.0 ; Presence of prosthetic heart valve Z95.2 ; Presence of cardiac pacemaker Z95.0 and Tobacco abuse Z72.[address] Jan, [facility] [place] [address] Jan, Atrial flutter I48.92 ; [facility] [address] [place] [facility] atrial [address] fibrillation I48.0 ; Presence of prosthetic heart valve Z95.2 ; Presence of cardiac pacemaker Z95.0 and Tobacco use Z72.[address] Jan, LLC 410 [place] [address] [facility] [address] [place] Dec, LLC 410 [place] [address] [facility] [address] [place] [address] ST [place] Dec, [facility] [address] [place] fibrillation I48.0 ; [address] Presence of prosthetic heart valve Z95.2 ; Presence of cardiac pacemaker Z95.0 and Atypical atrial flutter I48.4 [facility] [address] [place] [address] ST [place] Dec, S/P Aortic Valve LLC 410 [place] Replacement V43.3 [address] [facility] [address] [place] [address] [facility] Dec, LLC [address] [place] [address] [facility] [address] [place] [address] Sep, [facility] 410 [place] pacemaker Z95.0 and Sick [address] sinus syndrome I49.5 [facility] [address] [place] [address] [facility] Sep, LLC [address] [place] [address] [facility] [address] [place] [address] ST [place] Jun, [facility] 410 [place] fibrillation I48.0 ; [address] Presence of prosthetic heart valve Z95.2 and Presence of cardiac pacemaker Z95.0 [facility] [address] [place] [address] ST [place] Jun, LLC [place] [address] [facility] [address] [facility] [address] [place] Jun, LLC [facility] [place] [address] [facility] [address] [facility] [address] [place] Jun, LLC 410 [place] [address] [facility] [address] [place] [address] ST [place] Jun, LLC [facility] [place] [address] [facility] [address] [facility] [address] [place] Jun, LLC [facility] [place] [address] [facility] [address] [place] [address] ST [place] Apr, LLC [address] [place] [address] [facility] [address] [place] [address] ST [place] Dec, Atrial fibrillation 427.31 LLC [employer] [place] ; S/P Aortic Valve [address] Replacement V43.3 and S/P Pacemaker Placement - Dual V45.01 [facility] [address] [facility] [address] [place] 16 Dec, 2014 Atrial Tachycardia 427.89 ; LLC 410 [place] S/P Aortic Valve [address] Replacement V43.3 ; S/P Pacemaker Placement - Dual V45.01 and Atrial fibrillation 427.31 [facility] [address] [place] [address] ST [place] 15 Dec, 2014 LLC [employer] [place] [address] [facility] [address] [place] [address] ST [place] 16 Sep, 2014 LLC [employer] [place] [address] [facility] [address] [place] [address] [facility] 31 Jun, 2014 S/P Pacemaker Placement - LLC [employer] [place] Dual V45.01 and Sick Sinus [address] Syndrome 427.81 [facility] [address] [place] [address] [place] 10 Jun, 2014 Atrial fibrillation 427.31 LLC [employer] [place] ; S/P Aortic Valve [address] Replacement V43.3 and S/P Pacemaker Placement - Dual V45.01 [facility] [address] [place] [address] [facility] Apr, LLC [employer] [place] [address] [facility] [address] Mar, Atrial fibrillation 427.31 [place] [address] [place] 30 Dec, 2013 S/P Pacemaker Placement - LLC [employer] [place] Dual V45.01 and Sick Sinus [address] Syndrome 427.[address] [facility] [address] Dec, [place] [address] [facility] [address] Nov, [place] [address] [facility] [address] [place] [address] ST [place] Nov, [place] [address] [place] [address] [facility] [address] [place] [address] ST [place] Nov, LLC [employer] [place] [address] [facility] [address] [place] [address] ST [place] Nov, Atrial fibrillation 427.31 LLC [employer] [place] ; S/P Aortic Valve [address] Replacement V43.3 and S/P Pacemaker Placement - Dual V45.01 [facility] [address] [place] [address] ST [place] Sep, S/P Pacemaker Placement - [address] Dual V45.01 and Sick Sinus [address] Syndrome 427.81 [facility] [address] [place] [address] [place] August, Atrial fibrillation 427.[address] ; S/P Aortic Valve [address] Replacement V43.3 and S/P Pacemaker Placement - Dual V45.01 [facility] [address] August, [place] [address] [facility] [address] Jun, [place] [address] [facility] [address] [place] [address] [facility] Jun, [address] [address] [facility] [address] May, [place] [address] [facility] [address] [place] [address] May, Atrial fibrillation 427.[address] ; S/P Aortic Valve [address] Replacement V43.3 and S/P Pacemaker Placement - Dual V45.01 [facility] [address] May, [place] [address] [facility] [address] May, [place] [address] [facility] [address] [place] [address] Apr, Atrial fibrillation 427.[address] ; S/P Aortic Valve [address] Replacement V43.3 and S/P Pacemaker Placement - Dual V45.[address] Apr, [address] [address] [facility] [address] Apr, [place] [address] [facility] [address] [place] [address] Mar, [address] [address] [facility] [address] [place] [address] Mar, Atrial fibrillation 427.[address] ; S/P Aortic Valve [address] Replacement V43.3 ; S/P Pacemaker Placement - Dual V45.01 and Dyslipidemia 272.4 [facility] [address] [facility] [address] [place] Mar, Atrial Tachycardia 427.89 ; LLC [address] [place] S/P Aortic Valve [address] Replacement V43.3 and S/P Pacemaker Placement - Dual V45.01 [facility] [address] [place] 24 Jan, 2013 LLC 410 [place] [address] [facility] [address] [place] [address] ST [place] Dec, LLC 410 [place] [address] [facility] [address] [facility] [address] [place] Dec, Atrial fibrillation 427.31 LLC [address] [place] [address] [facility] [address] [place] [address] [facility] Dec, LLC 410 [place] [address] [facility] [address] [place] [address] [facility] Nov, LLC 410 [place] [address] [facility] [address] [place] [address] [facility] Nov, LLC 410 [place] [address] [facility] [address] [place] [address] [facility] Nov, Chronic Anticoagulation LLC 410 [place] V58.61 ; Dyslipidemia 272.4 [address] and Atrial fibrillation 427.31 [facility] [address] [place] [address] [facility] Nov, Atrial fibrillation 427.31 LLC [address] [place] ; S/P Aortic Valve [address] Replacement V43.3 ; S/P Pacemaker Placement - Dual V45.01 and Dyslipidemia 272.4 [facility] [address] [place] [address] ST [place] Nov, LLC [address] [place] [address] [facility] [address] [facility] [address] [facility] Nov, LLC 410 [place] [address] [facility] [address] [facility] [address] [place] Mar, Atrial Tachycardia 427.89 ; LLC [address] [place] S/P Aortic Valve [address] Replacement V43.3 ; S/P Pacemaker Placement - Dual V45.01 and Dyslipidemia 272.4 [facility] [address] [place] [address] ST [place] Jan, Atrial Tachycardia 427.89 LLC 410 [place] and S/P Aortic Valve [address] Replacement V43.3 [facility] [address] [place] Jan, LLC 410 [place] [address] [facility] [address] [place] Oct, Atrial Tachycardia 427.89 LLC 410 [place] [address] [facility] [address] [place] August, LLC 410 [place] [address] [facility] [address] [place] Jul, Atrial Tachycardia 427.89 LLC 410 [place] [address] [facility] [address] [place] May, LLC 410 [place] [address] [facility] [address] [place] May, LLC 410 [place] [address] [facility] [address] [facility] [address] [place] Mar, LLC 410 [place] [address] [facility] [address] [place] Jan, Atrial Tachycardia 427.89 ; LLC 410 [place] S/P Aortic Valve [address] Replacement V43.3 and S/P Pacemaker Placement - Dual V45.01 [facility] [address] [facility] [address] [place] Jan, S/P Aortic Valve LLC 410 [place] Replacement V43.3 ; S/P [address] Pacemaker Placement - Dual V45.01 and Atrial Tachycardia 427.89 [facility] [address] [facility] [address] [place] Jan, Atrial fibrillation 427.31 [place] [address] [place] [address] [facility] [address] [place] Nov, [place] [address] [place] [address] [facility] [address] [facility] [address] [place] Oct, [place] [address] [place] [address] [facility] [address] [place] Oct, Atrial Tachycardia 427.89 [place] [address] [place] [address] [facility] [address] [facility] [address] [place] Jul, Atrial Tachycardia 427.89 ; LLC 410 [place] S/P Aortic Valve [address] Replacement V43.3 and S/P Pacemaker Placement - Dual V45.01 [facility] [address] [place] Jun, LLC 410 [place] [address] [facility] [address] [place] 16 Jun, 2010 LLC [address] [place] [address] [facility] [address] [place] Jun, LLC 410 [place] [address] [facility] [address] [place] Jun, Atrial Tachycardia 427.89 LLC [address] [place] [address] [facility] [address] [place] May, LLC [address] [place] [address] [facility] [address] [place] May, Atrial Tachycardia 427.89 LLC [address] [place] [address] [facility] [address] [place] Apr, Atrial Tachycardia 427.89 LLC [address] [place] [address] [facility] [address] [place] Mar, LLC [address] [place] [address] [place] [address] [facility] [address] [place] Jan, Atrial Tachycardia 427.89 ; LLC [address] [place] S/P Aortic Valve [address] Replacement V43.3 and S/P Pacemaker Placement - Dual V45.01 [facility] [address] [place] Dec, Sick Sinus Syndrome 427.[address] [place] [address] [facility] [address] [place] Nov, Sick Sinus Syndrome 427.81 LLC 410 [place] and Atrial Tachycardia [address] 427.89 [facility] [address] [place] Jul, Atrial Tachycardia 427.89 ; LLC [address] [place] [address] S/P Aortic Valve [address] Replacement V43.3 and S/P Pacemaker Placement - Dual V45.01 [facility] [address] [place] Jul, LLC [address] [place] [address] [facility] [address] [place] Jul, LLC [address] [place] [address] [facility] [address] [place] Jul, Atrial fibrillation 427.31 LLC [address] [place] [address] [facility] [address] [place] May, LLC [address] [place] [address] [facility] [address] [facility] 12 May, 2009 Atrial Tachycardia 427.89 ; [address] S/P Aortic Valve [address] Replacement V43.3 ; Sick Sinus Syndrome 427.81 and S/P Pacemaker Placement - Dual V45.01 [facility] [address] [facility] 09 May, [address] [address] [facility] [address] [facility] Apr, [address] [address] [facility] [address] [place] [address] Jan, Atrial fibrillation 427.[address] [address] [facility] [address] [place] [address] Oct, Atrial fibrillation 427.[address] [address] IMMUNIZATIONS No Known Immunizations SOCIAL HISTORY Never Assessed REASON FOR VISIT TURBT pending PLAN OF CARE VITAL SIGNS MEDICATIONS Unknown Medications RESULTS No Results PROCEDURES No Known procedures INSTRUCTIONS MEDICATIONS ADMINISTERED No Known Medications MEDICAL (GENERAL) HISTORY Type Description Date Surgical History Dual chamber pacemaker - [employer] 10/29/2002 Surgical History Aortic valve replacement (metallic) 09/12/1990 Surgical History Electrophysiology study - RFA: atrial flutter 06/29/1999 Surgical History Atrial flutter ablation 04/06/2000
--- OUTSIDE RECORDS SUMMARY | 2017-09-23 16:47 | External Medical Summary ---
[...] Date Status Dosage System Date Coumadin NDC 92101-43 5 MG Orally Once as dir 72-01 a day Hydrocodone-Gus NDC 62301-92 5-325 MG Orally 1 tablet as taminophen 65-01 prn needed Coumadin NDC 98358-97 5 MG Orally as as directed 24-35 directed Sotalol HCl NDC 41062-46 80 MG Orally 1 tablet 61-01 twice a day Tamsulosin HCl NDC 54523-75 0.4 MG Orally 1 capsule 30 38-01 Once a day minutes after the same meal each day Procedures Procedure Coding System Code Date Office Visit, Est Pt., Level 3 CPT-4 37321 Feb 05, 2016 ELECTROCARDIOGRAM, COMPLETE CPT-4 33683 Feb 05, 2016 Vital Signs Date/Time: Feb 05, 2016 BMI 20.95 Index Weight 146 lbs Height 70 in Cardiac Monitoring Heart Rate 85 /min Oximetry 98% % Blood Pressure Diastolic 70 mm Hg Blood Pressure Systolic 130 mm Hg Results No Known Results Summary Purpose eClinicalWorks Submission
--- OUTSIDE RECORDS SUMMARY | 2017-09-23 16:48 | External Medical Summary ---
:1935 [address] [facility] Address [address] [place] [address] Care Team Providers Name Role Phone Scott Oliva Unavailable Unavailable PROBLEMS Type Condition ICD9-CM JFO83-MR Onset Condition SNOMED Code Code Code Dates Status Problem S/P Aortic Valve V43.3 Active 5131369965536 Replacement Problem Dyslipidemia 272.4 Active 395898796 Problem Atrial 427.89 Active 032629778 Tachycardia Problem S/P Pacemaker V45.01 Active 430533825 Placement - Dual Problem Atrial flutter I48.92 Active 5862009 Problem Paroxysmal I48.0 Active 857161733 atrial fibrillation Problem Tobacco abuse Z72.0 Active 95601549 Problem Atrial 427.31 Active 09995834 fibrillation Problem 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 Nov, [place], [place] [id number] [address] August, [facility] [address] [place] [address] fibrillation I48.0 ; Atrial [address] flutter I48.92 ; Presence of prosthetic heart valve Z95.2 ; Presence of cardiac pacemaker Z95.0 ; Tobacco abuse Z72.0 and Pre-operative cardiovascular examination Z01.[address] Jul, [address] [address] Jul, [address] [address] Jul, Atrial flutter I48.92 ; LLC [address] [place] [address] Paroxysmal atrial [address] fibrillation I48.0 ; Presence of prosthetic heart valve Z95.2 ; Presence of cardiac pacemaker Z95.0 and Tobacco abuse Z72.[address] [place] Jul, [place] [address] [facility] [address] [facility] Jun, [place] [address] [facility] Jun, [place] [address] [facility] [address] [place] [address] Jun, LLC [facility] [place] [address] [facility] [address] [place] [address] Jun, Atrial flutter I48.92 ; LLC [facility] [place] [address] fibrillation I48.0 ; Presence of prosthetic heart valve Z95.2 ; Presence of cardiac pacemaker Z95.0 ; Tobacco abuse Z72.0 and Pre-operative cardiovascular examination Z01.[address] Jun, [facility]mal atrial [address] fibrillation I48.0 ; [place] [address] flutter I48.92 and Tobacco abuse Z72.[address] 15 Jun, 2017 [place] [address] Jun, LLC [facility] [place] [address] [facility] [address] [place] [address] May, [place] [address] Apr, Presence of cardiac LLC [facility] [place] pacemaker Z95.0 and Sick [address] sinus syndrome I49.5 [facility] [address] [facility] Dec, Atrial flutter I48.92 ; LLC [facility] [place] [address] fibrillation I48.0 ; Presence of prosthetic heart valve Z95.2 ; Presence of cardiac pacemaker Z95.0 and Tobacco abuse Z72.[address] 05 Dec, 2016 [place] [address] Sep, Presence of cardiac LLC [facility] [place] pacemaker Z95.0 and Sick [address] sinus syndrome I49.5 [facility] [address] [facility] Sep, [place] [address] [facility] [address] [facility] Sep, [facility] [place] [address] [facility] [address] [place] [address] August, Atrial flutter I48.92 [place] [address] [facility] [address] [place] [address] 31 Jun, 2016 [facility] [address] [place] pacemaker Z95.0 and Sick [address] sinus syndrome I49.5 [facility] [address] [place] [address] Jun, [place] [address] [facility] [address] [place] [address] Jun, [facility] [place] [address] [facility] [address] [place] [address] Jun, Atrial flutter I48.92 ; LLC [address] [place]ys[place] atrial [address] fibrillation I48.0 ; Presence of prosthetic heart valve Z95.2 ; Presence of cardiac pacemaker Z95.0 and Tobacco abuse Z72.[address] 14 Jun, 2016 [facility] [place] [address] [facility] [address] [place] [address] Apr, [facility] [place] [address] Mar, [facility] [place] [address] Jan, Atrial flutter I48.92 ; [facility] [address] [place] [address] fibrillation I48.0 ; Presence of prosthetic heart valve Z95.2 ; Presence of cardiac pacemaker Z95.0 and Tobacco abuse Z72.[address] Jan, [facility] [place] [address] Jan, Atrial flutter I48.92 ; [facility] [address] [place] [address] fibrillation I48.0 ; Presence of prosthetic heart valve Z95.2 ; Presence of cardiac pacemaker Z95.0 and Tobacco use Z72.[address] Jan, LLC [address] [place] [address] [facility] [address] [place] Dec, LLC [address] [place] [address] [facility] [address] [place] [address] ST [place] Dec, [facility] [address] [place] fibrillation I48.0 ; [address] Presence of prosthetic heart valve Z95.2 ; Presence of cardiac pacemaker Z95.0 and Atypical atrial flutter I48.4 [facility] [address] [place] [address] ST [place] Dec, S/P Aortic Valve LLC [address] [place] Replacement V43.3 [address] [facility] [address] [place] [address] [facility] Dec, LLC [address] [place] [address] [facility] [address] [place] [address] Sep, [facility] [address] [place] pacemaker Z95.0 and Sick [address] sinus syndrome I49.5 [facility] [address] [place] [address] [facility] Sep, LLC [address] [place] [address] [facility] [address] [place] [address] ST [place] Jun, [facility] [address] [place] fibrillation I48.0 ; [address] Presence of prosthetic heart valve Z95.2 and Presence of cardiac pacemaker Z95.0 [facility] [address] [place] [address] ST [place] Jun, LLC [place] [address] [facility] [address] [facility] [address] [place] Jun, [place] [address] [facility] [address] [facility] [address] [place] Jun, LLC [address] [place] [address] [facility] [address] [place] [address] ST [place] Jun, [place] [address] [facility] [address] [facility] [address] [place] Jun, [place] [address] [facility] [address] [place] [address] ST [place] Apr, LLC [address] [place] [address] [facility] [address] [place] [address] ST [place] Dec, Atrial fibrillation 427.31 LLC [facility] [place] ; S/P Aortic Valve [address] Replacement V43.3 and S/P Pacemaker Placement - Dual V45.01 [facility] [address] [facility] [address] [place] 16 Dec, 2014 Atrial Tachycardia 427.89 ; LLC [address] [place] S/P Aortic Valve [address] Replacement V43.3 ; S/P Pacemaker Placement - Dual V45.01 and Atrial fibrillation 427.31 [facility] [address] [place] [address] ST [place] 15 Dec, 2014 LLC [facility] [place] [address] [facility] [address] [place] [address] ST [place] 16 Sep, 2014 LLC [facility] [place] [address] [facility] [address] [place] [address] [facility] 31 Jun, 2014 S/P Pacemaker Placement - LLC [facility] [place] Dual V45.01 and Sick Sinus [address] Syndrome 427.81 [facility] [address] [place] [address] [place] 10 Jun, 2014 Atrial fibrillation 427.31 LLC [facility] [place] ; S/P Aortic Valve [address] Replacement V43.3 and S/P Pacemaker Placement - Dual V45.01 [facility] [address] [place] [address] [facility] Apr, LLC [facility] [place] [address] Mar, Atrial fibrillation 427.31 [place] [address] [place] 30 Dec, 2013 S/P Pacemaker Placement - LLC [facility] [place] Dual V45.01 and Sick Sinus [address] Syndrome 427.[address] Dec, [place] [address] [address] [place], [place] [address] [facility] [address] [place] [address] ST [place] Nov, [place] [address] [place] [address] [facility] [address] [place] [address] ST [place] Nov, LLC [facility] [place] [address] [facility] [address] [place] [address] ST [place] Nov, Atrial fibrillation 427.31 LLC [facility] [place] ; S/P Aortic Valve [address] Replacement V43.3 and S/P Pacemaker Placement - Dual V45.01 [facility] [address] [place] [address] ST [place] Sep, S/P Pacemaker Placement - [address] Dual V45.01 and Sick Sinus [address] Syndrome 427.[address] [facility] [address] [place] [address] [place] August, Atrial fibrillation 427.[address] ; S/P Aortic Valve [address] Replacement V43.3 and S/P Pacemaker Placement - Dual V45.[address] August, [place] [address] Jun, [place] [address] [facility] [address] [place] [address] [facility] Jun, [address] [address] North [address] May, [place] [address] [facility] [address] [place] [address] May, Atrial fibrillation 427.[address] ; S/P Aortic Valve [address] Replacement V43.3 and S/P Pacemaker Placement - Dual V45.[address] May, [place] [address] May, [place] [address] [facility] [address] [place] [address] Apr, Atrial fibrillation 427.[address] ; S/P Aortic Valve [address] Replacement V43.3 and S/P Pacemaker Placement - Dual V45.[address] Apr, [address] [address] North [address] Apr, [place] [address] [facility] [address] [place] [address] Mar, [address] [address] [facility] [address] [place] [address] Mar, Atrial fibrillation 427.[address] ; S/P Aortic Valve [address] Replacement V43.3 ; S/P Pacemaker Placement - Dual V45.01 and Dyslipidemia 272.4 [facility] [address] [facility] [address] [place] Mar, Atrial Tachycardia 427.89 ; LLC [address] [place] S/P Aortic Valve [address] Replacement V43.3 and S/P Pacemaker Placement - Dual V45.01 [facility] [address] [place] 24 Jan, 2013 LLC [address] [place] [address] [facility] [address] [place] [address] ST [place] Dec, LLC [address] [place] [address] [facility] [address] [facility] [address] [place] Dec, Atrial fibrillation 427.31 LLC [address] [place] [address] [facility] [address] [place] [address] [facility] Dec, LLC [address] [place] [address] [facility] [address] [place] [address] [facility] Nov, LLC [address] [place] [address] [facility] [address] [place] [address] [facility] Nov, LLC [address] [place] [address] [facility] [address] [place] [address] [facility] Nov, Chronic Anticoagulation LLC [address] [place] V58.61 ; Dyslipidemia 272.4 [address] and Atrial fibrillation 427.31 [facility] [address] [place] [address] [facility] Nov, Atrial fibrillation 427.31 LLC [address] [place] ; S/P Aortic Valve [address] Replacement V43.3 ; S/P Pacemaker Placement - Dual V45.01 and Dyslipidemia 272.4 [facility] [address] [place] [address] ST [place] Nov, LLC [address] [place] [address] [facility] [address] [facility] [address] [facility] Nov, LLC [address] [place] [address] [facility] [address] [facility] [address] [place] Mar, Atrial Tachycardia 427.89 ; LLC [address] [place] S/P Aortic Valve [address] Replacement V43.3 ; S/P Pacemaker Placement - Dual V45.01 and Dyslipidemia 272.4 [facility] [address] [place] [address] ST [place] Jan, Atrial Tachycardia 427.89 LLC 410 [place] and S/P Aortic Valve [address] Replacement V43.3 [facility] [address] [place] Jan, LLC [address] [place] [address] [facility] [address] [place] Oct, Atrial Tachycardia 427.89 LLC [address] [place] [address] [facility] [address] [place] August, LLC [address] [place] [address] [facility] [address] [place] Jul, Atrial Tachycardia 427.89 LLC [address] [place] [address] [facility] [address] [place] May, LLC [address] [place] [address] [facility] [address] [place] May, LLC [address] [place] [address] [facility] [address] [facility] [address] [place] Mar, LLC [address] [place] [address] [facility] [address] [place] Jan, Atrial Tachycardia 427.89 ; LLC [address] [place] S/P Aortic Valve [address] Replacement V43.3 and S/P Pacemaker Placement - Dual V45.01 [facility] [address] [facility] [address] [place] Jan, S/P Aortic Valve LLC 410 [place] Replacement V43.3 ; S/P [address] Pacemaker Placement - Dual V45.01 and Atrial Tachycardia 427.89 [facility] [address] [facility] [address] [place] Jan, Atrial fibrillation 427.31 [place] [address] [place] [address] [facility] [address] [place] Nov, [place] [address] [place] [address] [facility] [address] [facility] [address] [place] Oct, [place] [address] [place] [address] [facility] [address] [place] Oct, Atrial Tachycardia 427.89 [place] [address] [place] [address] [facility] [address] [facility] [address] [place] Jul, Atrial Tachycardia 427.89 ; LLC [address] [place] S/P Aortic Valve [address] Replacement V43.3 and S/P Pacemaker Placement - Dual V45.01 [facility] [address] [place] Jun, LLC 410 [place] [address] [facility] [address] [place] 16 Jun, 2010 LLC [address] [place] [address] [facility] [address] [place] Jun, LLC [address] [place] [address] [facility] [address] [place] Jun, Atrial Tachycardia 427.89 LLC [address] [place] [address] [facility] [address] [place] May, LLC [address] [place] [address] [facility] [address] [place] May, Atrial Tachycardia 427.89 LLC [address] [place] [address] [facility] [address] [place] Apr, Atrial Tachycardia 427.89 LLC [address] [place] [address] [facility] [address] [place] Mar, LLC [address] [place] [address] [place] [address] [facility] [address] [place] Jan, Atrial Tachycardia 427.89 ; LLC [address] [place], [place] S/P Aortic Valve [address] Replacement V43.3 and S/P Pacemaker Placement - Dual V45.01 [facility] [address] [place] Dec, Sick Sinus Syndrome 427.[address] [place] [address] [facility] [address] [place] Nov, Sick Sinus Syndrome 427.81 LLC [address] [place] and Atrial Tachycardia [address] 427.89 [facility] [address] [place] Jul, Atrial Tachycardia 427.89 ; LLC [address] [place] [address] S/P Aortic Valve [address] Replacement V43.3 and S/P Pacemaker Placement - Dual V45.01 [facility] [address] [place] Jul, LLC [address] [place] [address] [facility] [address] [place] Jul, LLC [address] [place] [address] [facility] [address] [place] Jul, Atrial fibrillation 427.31 LLC [address] [place] [address] [facility] [address] [place] May, LLC [address] [place] [address] [facility] [address] [facility] 12 May, 2009 Atrial Tachycardia 427.89 ; [facility] 410 [place], [place] S/P Aortic Valve [address] Replacement V43.3 ; Sick Sinus Syndrome 427.81 and S/P Pacemaker Placement - Dual V45.01 [facility] [address] [facility] 09 May, [address] [address] [facility] [address] [facility] Apr, [address] [address] [facility] [address] [place] [address] Jan, Atrial fibrillation 427.[address] [address] [facility] [address] [place] [address] Oct, Atrial fibrillation 427.[address] [address] IMMUNIZATIONS No Known Immunizations SOCIAL HISTORY Never Assessed REASON FOR VISIT PLAN OF CARE VITAL SIGNS MEDICATIONS Unknown [...]
--- OUTSIDE RECORDS SUMMARY | 2017-09-23 16:48 | External Medical Summary ---
:1935 Author Organization [facility] Address [address] [place] [address] Care Team Providers Name Role Phone Scott Oliva Unavailable Unavailable PROBLEMS Type Condition ICD9-CM [id number] Onset Condition SNOMED Code Code Code Dates Status Problem S/P Aortic Valve V43.3 Active 7945264897793 Replacement Problem Dyslipidemia 272.4 Active 957545562 Problem Atrial 427.89 Active 832257885 Tachycardia Problem S/P Pacemaker V45.01 Active 190620305 Placement - Dual Problem Atrial flutter I48.92 Active 4510672 Problem Paroxysmal I48.0 Active 238746826 atrial fibrillation Problem Tobacco abuse Z72.0 Active 42294925 Problem Atrial 427.31 Active 58079121 fibrillation Problem 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 Nov, [place] [id number] [address] August, [facility] [address] [place] [address] fibrillation I48.0 ; Atrial [address] flutter I48.92 ; Presence of prosthetic heart valve Z95.2 ; Presence of cardiac pacemaker Z95.0 ; Tobacco abuse Z72.0 and Pre-operative cardiovascular examination Z01.[address] Jul, [address] [address] Jul, [address] [address] Jul, Atrial flutter I48.92 ; LLC [address] [place] [address] Paroxysmal atrial [address] fibrillation I48.0 ; Presence of prosthetic heart valve Z95.2 ; Presence of cardiac pacemaker Z95.0 and Tobacco abuse Z72.[address] [place] Jul, [place] [address] [facility] [address] [facility] Jun, [place] [address] [facility] [address] [facility] Jun, [place] [address] [facility] [address] [place] [address] Jun, LLC [facility] [place] [place] [address] [facility] [address] [place] [address] Jun, Atrial flutter I48.92 ; LLC [facility] [place] [address] fibrillation I48.0 ; Presence of prosthetic heart valve Z95.2 ; Presence of cardiac pacemaker Z95.0 ; Tobacco abuse Z72.0 and Pre-operative cardiovascular examination Z01.[address] Jun, Paroxysmal atrial [address] fibrillation I48.0 ; [place] [address] flutter I48.92 and Tobacco abuse Z72.[address] 15 Jun, 2017 [place] [address] Jun, LLC [facility] [place] [address] [facility] [address] [place] [address] May, [place] [address] Apr, Presence [facility] cardiac [facility] [place] pacemaker Z95.0 and Sick [address] sinus syndrome I49.5 [facility] [address] [facility] Dec, Atrial flutter I48.92 ; LLC [facility] [place] atrial [address] fibrillation I48.0 ; Presence of prosthetic heart valve Z95.2 ; Presence of cardiac pacemaker Z95.0 and Tobacco abuse Z72.[address] 05 Dec, 2016 [place] [address] Sep, Presence [facility] cardiac [facility] [place] pacemaker Z95.0 and Sick [address] sinus syndrome I49.5 [facility] [address] [facility] Sep, [place] [address] [facility] [address] [facility] Sep, [facility] [place] [address] [facility] [address] [place] [address] August, Atrial flutter I48.92 LLC [place] [address] [facility] [address] [place] [address] 31 Jun, 2016 [facility] [address] [place] pacemaker Z95.0 and Sick [address] sinus syndrome I49.5 [facility] [address] [place] [address] Jun, [place] [address] [facility] [address] [place] [address] Jun, [facility] [place] [address] [facility] [address] [place] [address] Jun, Atrial flutter I48.92 ; LLC [address] [place] [address] fibrillation I48.0 ; Presence of prosthetic heart valve Z95.2 ; Presence of cardiac pacemaker Z95.0 and Tobacco abuse Z72.[address] 14 Jun, 2016 [facility] [place] [address] [facility] [address] [place] [address] Apr, [facility] [place] [address] Mar, [facility] [place] [address] Jan, Atrial flutter I48.92 ; [facility] [address] [place] [address] fibrillation I48.0 ; Presence of prosthetic heart valve Z95.2 ; Presence of cardiac pacemaker Z95.0 and Tobacco abuse Z72.[address] Jan, [facility] [place] [address] Jan, Atrial flutter I48.92 ; [facility] [address] [place] [address] fibrillation I48.0 ; Presence of prosthetic heart valve Z95.2 ; Presence of cardiac pacemaker Z95.0 and Tobacco use Z72.[address] Jan, LLC [address] [place] [address] [facility] [address] [place] Dec, LLC [address] [place] [address] [facility] [address] [place] [address] ST [place] Dec, [facility]mal [facility] [address] [place] fibrillation I48.0 ; [address] Presence of prosthetic heart valve Z95.2 ; Presence of cardiac pacemaker Z95.0 and Atypical atrial flutter I48.4 [facility] [address] [place] [address] ST [place] Dec, S/P Aortic Valve LLC [address] [place], [place] Replacement V43.3 [address] [facility] [address] [place] [address] [facility] Dec, LLC [address] [place] [address] [facility] [address] [place] [address] Sep, [facility] [address] [place] pacemaker Z95.0 and Sick [address] sinus syndrome I49.5 [facility] [address] [place] [address] [facility] Sep, LLC [address] [place] [address] [facility] [address] [place] [address] ST [place] Jun, [facility]ysmal atrial [facility] [address] [place] fibrillation I48.0 ; [address] Presence of prosthetic heart valve Z95.2 and Presence of cardiac pacemaker Z95.0 [facility] [address] [place] [address] ST [place] Jun, LLC [place] [address] [facility] [address] [facility] [address] [place] Jun, [place] [address] [facility] [address] [facility] [address] [place] Jun, LLC [address] [place] [address] [facility] [address] [place] [address] ST [place] Jun, [place] [address] [facility] [address] [facility] [address] [place] Jun, [place] [address] [facility] [address] [place] [address] ST [place] Apr, LLC [address] [place] [address] [facility] [address] [place] [address] ST [place] Dec, Atrial fibrillation 427.31 LLC [facility] [place] ; S/P Aortic Valve [address] Replacement V43.3 and S/P Pacemaker Placement - Dual V45.01 [facility] [address] [facility] [address] [place] 16 Dec, 2014 Atrial Tachycardia 427.89 ; LLC [address] [place] S/P Aortic Valve [address] Replacement V43.3 ; S/P Pacemaker Placement - Dual V45.01 and Atrial fibrillation 427.31 [facility] [address] [place] [address] ST [place] 15 Dec, 2014 LLC [facility] [place] [address] [facility] [address] [place] [address] ST [place] 16 Sep, 2014 LLC [facility] [place] [address] [facility] [address] [place] [address] [facility] 31 Jun, 2014 S/P Pacemaker Placement - LLC [facility] [place] Dual V45.01 and Sick Sinus [address] Syndrome 427.81 [facility] [address] [place] [address] [place] 10 Jun, 2014 Atrial fibrillation 427.31 LLC [facility] [place] ; S/P Aortic Valve [address] Replacement V43.3 and S/P Pacemaker Placement - Dual V45.01 [facility] [address] [place] [address] [facility] Apr, LLC [facility] [place] [address] [facility] [address] Mar, Atrial fibrillation 427.31 [place] [address] [place] 30 Dec, 2013 S/P Pacemaker Placement - LLC [facility] [place] Dual V45.01 and Sick Sinus [address] Syndrome 427.81 [facility] [address] Dec, [place] [address] [facility] [address] Nov, [place] [address] [facility] [address] [place] [address] ST [place] Nov, [place] [address] [place] [address] [facility] [address] [place] [address] ST [place] Nov, LLC [facility] [place] [address] [facility] [address] [place] [address] ST [place] Nov, Atrial fibrillation 427.31 LLC [facility] [place] ; S/P Aortic Valve [address] Replacement V43.3 and S/P Pacemaker Placement - Dual V45.01 [facility] [address] [place] [address] ST [place] Sep, S/P Pacemaker Placement - [address] Dual V45.01 and Sick Sinus [address] Syndrome 427.81 [facility] [address] [place] [address] [place] August, Atrial fibrillation 427.[address] ; S/P Aortic Valve [address] Replacement V43.3 and S/P Pacemaker Placement - Dual V45.01 [facility] [address] August, [place] [address] [facility] [address] Jun, [place] [address] [facility] [address] [place] [address] [facility] Jun, [address] [address] [facility] [address] May, [place] [address] [facility] [address] [place] [address] May, Atrial fibrillation 427.[address] ; S/P Aortic Valve [address] Replacement V43.3 and S/P Pacemaker Placement - Dual V45.01 [facility] [address] May, [place] [address] [facility] [address] May, [place] [address] [facility] [address] [place] [address] Apr, Atrial fibrillation 427.[address] ; S/P Aortic Valve [address] Replacement V43.3 and S/P Pacemaker Placement - Dual V45.[address] Apr, [address] [address] [facility] [address] Apr, [place] [address] [facility] [address] [place] [address] Mar, [address] [address] [facility] [address] [place] [address] Mar, Atrial fibrillation 427.[address] ; S/P Aortic Valve [address] Replacement V43.3 ; S/P Pacemaker Placement - Dual V45.01 and Dyslipidemia 272.4 [facility] [address] [facility] [address] [place] Mar, Atrial Tachycardia 427.89 ; LLC [address] [place] S/P Aortic Valve [address] Replacement V43.3 and S/P Pacemaker Placement - Dual V45.01 [facility] [address] [place] 24 Jan, 2013 LLC [address] [place] [address] [facility] [address] [place] [address] ST [place] Dec, LLC [address] [place] [address] [facility] [address] [facility] [address] [place] Dec, Atrial fibrillation 427.31 LLC [address] [place] [address] [facility] [address] [place] [address] [facility] Dec, LLC [address] [place] [address] [facility] [address] [place] [address] [facility] Nov, LLC 410 [place] [address] [facility] [address] [place] [address] [facility] Nov, LLC [address] [place] [address] [facility] [address] [place] [address] [facility] Nov, Chronic Anticoagulation LLC [address] [place] V58.61 ; Dyslipidemia 272.4 [address] and Atrial fibrillation 427.31 [facility] [address] [place] [address] [facility] Nov, Atrial fibrillation 427.31 LLC [address] [place] ; S/P Aortic Valve [address] Replacement V43.3 ; S/P Pacemaker Placement - Dual V45.01 and Dyslipidemia 272.4 [facility] [address] [place] [address] ST [place] Nov, [place] [address] [place] [address] [facility] [address] [facility] [address] [facility] Nov, LLC 410 [place] [address] [facility] [address] [facility] [address] [place] Mar, Atrial Tachycardia 427.89 ; LLC [address] [place] S/P Aortic Valve [address] Replacement V43.3 ; S/P Pacemaker Placement - Dual V45.01 and Dyslipidemia 272.4 [facility] [address] [place] [address] ST [place] Jan, Atrial Tachycardia 427.89 LLC 410 [place] and S/P Aortic Valve [address] Replacement V43.3 [facility] [address] [place] Jan, LLC 410 [place] [address] [facility] [address] [place] Oct, Atrial Tachycardia 427.89 LLC [address] [place] [address] [facility] [address] [place] August, LLC [address] [place] [address] [facility] [address] [place] Jul, Atrial Tachycardia 427.89 LLC [address] [place] [address] [facility] [address] [place] May, LLC [address] [place] [address] [facility] [address] [place] May, LLC [address] [place] [address] [facility] [address] [facility] [address] [place] Mar, LLC [address] [place] [address] [facility] [address] [place] Jan, Atrial Tachycardia 427.89 ; LLC [address] [place] S/P Aortic Valve [address] Replacement V43.3 and S/P Pacemaker Placement - Dual V45.01 [facility] [address] [facility] [address] [place] Jan, S/P Aortic Valve LLC 410 [place] Replacement V43.3 ; S/P [address] Pacemaker Placement - Dual V45.01 and Atrial Tachycardia 427.89 [facility] [address] [facility] [address] [place] Jan, Atrial fibrillation 427.31 LLC [address] [place] [address] [facility] [address] [place] Nov, [place] [address] [place] [address] [facility] [address] [facility] [address] [place] Oct, [place] [address] [place] [address] [facility] [address] [place] Oct, Atrial Tachycardia 427.89 [place] [address] [place] [address] [facility] [address] [facility] [address] [place] Jul, Atrial Tachycardia 427.89 ; LLC [address] [place] S/P Aortic Valve [address] Replacement V43.3 and S/P Pacemaker Placement - Dual V45.01 [facility] [address] [place] Jun, LLC 410 [place] [address] [facility] [address] [place] 16 Jun, 2010 LLC [address] [place] [address] [facility] [address] [place] Jun, LLC [address] [place] [address] [facility] [address] [place] Jun, Atrial Tachycardia 427.89 LLC [address] [place] [address] [facility] [address] [place] May, LLC [address] [place] [address] [facility] [address] [place] May, Atrial Tachycardia 427.89 LLC [address] [place] [address] [facility] [address] [place] Apr, Atrial Tachycardia 427.89 LLC [address] [place] [address] [facility] [address] [place] Mar, LLC [address] [place] [address] [place] [address] [facility] [address] [place] Jan, Atrial Tachycardia 427.89 ; LLC [address] [place] S/P Aortic Valve [address] Replacement V43.3 and S/P Pacemaker Placement - Dual V45.01 [facility] [address] [place] Dec, Sick Sinus Syndrome 427.[address] [place] [address] [facility] [address] [place] Nov, Sick Sinus Syndrome 427.81 LLC [address] [place] and Atrial Tachycardia [address] 427.89 [facility] [address] [place] Jul, Atrial Tachycardia 427.89 ; LLC [address] [place] [address] S/P Aortic Valve [address] Replacement V43.3 and S/P Pacemaker Placement - Dual V45.01 [facility] [address] [place] Jul, LLC [address] [place] [address] [facility] [address] [place] Jul, LLC [address] [place] [address] [facility] [address] [place] Jul, Atrial fibrillation 427.31 LLC [address] [place] [address] [facility] [address] [place] May, LLC [address] [place] [address] [facility] [address] [facility] 12 May, 2009 Atrial Tachycardia 427.89 ; LLC [address] [place] [address] S/P Aortic Valve [address] Replacement V43.3 ; Sick Sinus Syndrome 427.81 and S/P Pacemaker Placement - Dual V45.01 [facility] [address] [facility] 09 May, [address] [address] [facility] [address] [place] [address] Apr, [address] [address] [facility] [address] [place] [address] Jan, Atrial fibrillation 427.[address] [address] [facility] [address] [place] [address] Oct, Atrial fibrillation 427.[address] [address] IMMUNIZATIONS No Known Immunizations SOCIAL HISTORY Never Assessed REASON FOR VISIT Surgery clearance PLAN OF CARE VITAL SIGNS MEDICATIONS Medication Instructions Dosage Frequency Start Date End Date Duration Status Lab Order as directed Jul, Active Orders 2017 RESULTS No Results PROCEDURES No Known procedures INSTRUCTIONS MEDICATIONS ADMINISTERED No Known Medications MEDICAL (GENERAL) HISTORY Type Description Date Surgical History Dual chamber pacemaker - [employer] 10/29/2002 Surgical History Aortic valve replacement (metallic) 09/12/1990 Surgical History Electrophysiology study - RFA: atrial flutter 06/29/1999 Surgical History Atrial flutter ablation 04/06/2000
--- OUTSIDE RECORDS SUMMARY | 2017-09-23 16:48 | External Medical Summary ---
:1935 Author Organization [facility] Address [address] [place] [address] Care Team Providers Name Role Phone Scott Oliva Unavailable Unavailable PROBLEMS Type Condition ICD9-CM [id number] Onset Condition SNOMED Code Code Code Dates Status Problem S/P Aortic Valve V43.3 Active 9145952768728 Replacement Problem Dyslipidemia 272.4 Active 624581776 Problem Atrial 427.89 Active 652905543 Tachycardia Problem S/P Pacemaker V45.01 Active 222294409 Placement - Dual Problem Atrial flutter I48.92 Active 0847685 Problem Paroxysmal I48.0 Active 407029498 atrial fibrillation Problem Tobacco abuse Z72.0 Active 98800965 Problem Atrial 427.31 Active 23524034 fibrillation Problem 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 Nov, [place] [id number] [address] August, [facility] [address] [place] [address] fibrillation I48.0 ; Atrial [address] flutter I48.92 ; Presence of prosthetic heart valve Z95.2 ; Presence of cardiac pacemaker Z95.0 ; Tobacco abuse Z72.0 and Pre-operative cardiovascular examination Z01.[address] Jul, [address] [address] Jul, [address] [address] Jul, Atrial flutter I48.92 ; LLC [address] [place] [address] [facility] [address] fibrillation I48.0 ; Presence of prosthetic heart valve Z95.2 ; Presence of cardiac pacemaker Z95.0 and Tobacco abuse Z72.[address] [place] Jul, [place] [address] [facility] [address] [facility] Jun, [place] [address] [facility] [address] [facility] Jun, [place] [address] [facility] [address] [place] [address] Jun, LLC [facility] [place] [address] [facility] [address] [place] [address] Jun, Atrial flutter I48.92 ; LLC [facility] [place] [facility] [address] fibrillation I48.0 ; Presence of prosthetic heart valve Z95.2 ; Presence of cardiac pacemaker Z95.0 ; Tobacco abuse Z72.0 and Pre-operative cardiovascular examination Z01.[address] Jun, [facility] fibrillation I48.0 ; [place] [address] flutter I48.92 and Tobacco abuse Z72.[address] 15 Jun, 2017 [place] [address] Jun, LLC [facility] [place] [address] [facility] [address] [place] [address] May, [place] [address] Apr, [facility] [place] pacemaker Z95.0 and Sick [address] sinus syndrome I49.5 [facility] [address] [facility] Dec, Atrial flutter I48.92 ; LLC [facility] [place] [facility] [address] fibrillation I48.0 ; Presence of prosthetic heart valve Z95.2 ; Presence of cardiac pacemaker Z95.0 and Tobacco abuse Z72.[address] 05 Dec, 2016 [place] [address] Sep, [facility] [place] pacemaker Z95.0 and Sick [address] sinus syndrome I49.5 [facility] [address] [facility] Sep, [place] [address] [facility] [address] [facility] Sep, [facility] [place] [address] [facility] [address] [place] [address] August, Atrial flutter I48.92 LLC [place] [address] [facility] [address] [place] [address] 31 Jun, 2016 [facility] [address] [place] pacemaker Z95.0 and Sick [address] sinus syndrome I49.5 [facility] [address] [place] [address] Jun, [place] [address] [facility] [address] [place] [address] Jun, [facility] [place] [address] [facility] [address] [place] [address] Jun, Atrial flutter I48.92 ; [facility] [address] [place] [facility] [address] fibrillation I48.0 ; Presence of prosthetic heart valve Z95.2 ; Presence of cardiac pacemaker Z95.0 and Tobacco abuse Z72.[address] 14 Jun, 2016 [facility] [place] [address] [facility] [address] [place] [address] Apr, [facility] [place] [address] Mar, [facility] [place] [address] Jan, Atrial flutter I48.92 ; [facility] [address] [place] [facility] [address] fibrillation I48.0 ; Presence of prosthetic heart valve Z95.2 ; Presence of cardiac pacemaker Z95.0 and Tobacco abuse Z72.[address] Jan, [facility] [place] [address] Jan, Atrial flutter I48.92 ; [facility] [address] [place] [facility] [address] fibrillation I48.0 ; Presence of prosthetic heart valve Z95.2 ; Presence of cardiac pacemaker Z95.0 and Tobacco use Z72.[address] Jan, LLC [address] [place] [address] [facility] [address] [place] Dec, LLC [address] [place] [address] [facility] [address] [place] [address] ST [place] Dec, [facility] [address] [place] fibrillation I48.0 ; [address] Presence of prosthetic heart valve Z95.2 ; Presence of cardiac pacemaker Z95.0 and Atypical atrial flutter I48.4 [facility] [address] [place] [address] ST [place] Dec, S/P Aortic Valve [facility] [address] [place] Replacement V43.3 [address] [facility] [address] [place] [address] [facility] Dec, LLC [address] [place] [address] [facility] [address] [place] [address] Sep, [facility] [address] [place] pacemaker Z95.0 and Sick [address] sinus syndrome I49.5 [facility] [address] [place] [address] [facility] Sep, LLC [address] [place] [address] [facility] [address] [place] [address] ST [place] Jun, [facility] [address] [place] fibrillation I48.0 ; [address] Presence of prosthetic heart valve Z95.2 and Presence of cardiac pacemaker Z95.0 [facility] [address] [place] [address] ST [place] Jun, LLC [place] [address] [facility] [address] [facility] [address] [place] Jun, [place] [address] [facility] [address] [facility] [address] [place] Jun, LLC [address] [place] [address] [facility] [address] [place] [address] ST [place] Jun, [place] [address] [facility] [address] [facility] ST [place] Jun, [place] [address] [facility] [address] [place] [address] ST [place] Apr, LLC [address] [place] [address] [facility] [address] [place] [address] ST [place] Dec, Atrial fibrillation 427.31 LLC [facility] [place] ; S/P Aortic Valve [address] Replacement V43.3 and S/P Pacemaker Placement - Dual V45.01 [facility] [address] [facility] ST [place] 16 Dec, 2014 Atrial Tachycardia 427.89 ; LLC [address] [place] S/P Aortic Valve [address] Replacement V43.3 ; S/P Pacemaker Placement - Dual V45.01 and Atrial fibrillation 427.31 [facility] [address] [place] [address] ST [place] 15 Dec, 2014 LLC [facility] [place] [address] [facility] [address] [place] [address] ST [place] 16 Sep, 2014 LLC [facility] [place] [address] [facility] [address] [place] [address] [facility] 31 Jun, 2014 S/P Pacemaker Placement - LLC [facility] [place] Dual V45.01 and Sick Sinus [address] Syndrome 427.81 [facility] [address] [place] [address] [place] 10 Jun, 2014 Atrial fibrillation 427.31 LLC [facility] [place] ; S/P Aortic Valve [address] Replacement V43.3 and S/P Pacemaker Placement - Dual V45.01 [facility] [address] [place] [address] [facility] Apr, LLC [facility] [place] [address] [facility] [address] Mar, Atrial fibrillation 427.31 [place] [address] [place] 30 Dec, 2013 S/P Pacemaker Placement - LLC [facility] EM [place] Dual V45.01 and Sick Sinus [address] Syndrome 427.81 [facility] [address] Dec, [place] [address] [facility] [address] Nov, [place] [address] [facility] [address] [place] [address] ST [place] Nov, [place] [address] [place] [address] [facility] [address] [place] [address] ST [place] Nov, LLC [facility] [place] [address] [facility] [address] [place] [address] ST [place] Nov, Atrial fibrillation 427.31 LLC [facility] [place] ; S/P Aortic Valve [address] Replacement V43.3 and S/P Pacemaker Placement - Dual V45.01 [facility] [address] [place] [address] ST [place] Sep, S/P Pacemaker Placement - [address] Dual V45.01 and Sick Sinus [address] Syndrome 427.81 [facility] [address] [place] [address] [place] August, Atrial fibrillation 427.[address] ; S/P Aortic Valve [address] Replacement V43.3 and S/P Pacemaker Placement - Dual V45.01 [facility] [address] August, [place] [address] [facility] [address] Jun, [place] [address] [facility] [address] [place] [address] [facility] Jun, [address] [address] [facility] [address] May, [place] [address] [facility] [address] [place] [address] May, Atrial fibrillation 427.[address] ; S/P Aortic Valve [address] Replacement V43.3 and S/P Pacemaker Placement - Dual V45.01 [facility] [address] May, [place] [address] [facility] [address] May, [place] [address] [facility] [address] [place] [address] Apr, Atrial fibrillation 427.[address] ; S/P Aortic Valve [address] Replacement V43.3 and S/P Pacemaker Placement - Dual V45.[address] Apr, [address] [address] [facility] [address] Apr, [place] [address] [facility] [address] [place] [address] Mar, [address] [address] [facility] [address] [place] [address] Mar, Atrial fibrillation 427.[address] ; S/P Aortic Valve [address] Replacement V43.3 ; S/P Pacemaker Placement - Dual V45.01 and Dyslipidemia 272.4 [facility] [address] [facility] ST [place] Mar, Atrial Tachycardia 427.89 ; LLC [address] [place] S/P Aortic Valve [address] Replacement V43.3 and S/P Pacemaker Placement - Dual V45.01 [facility] [address] [place] 24 Jan, 2013 LLC [address] [place] [address] [facility] [address] [place] [address] ST [place] Dec, LLC [address] [place] [address] [facility] [address] [facility] ST [place] Dec, Atrial fibrillation 427.31 LLC [address] [place] [address] [facility] [address] [place] [address] [facility] Dec, LLC [address] [place] [address] [facility] [address] [place] [address] [facility] Nov, LLC [address] [place] [address] [facility] [address] [place] [address] [facility] Nov, LLC [address] [place] [address] [facility] [address] [place] [address] [facility] Nov, Chronic Anticoagulation [facility] [address] [place] V58.61 ; Dyslipidemia 272.4 [address] and Atrial fibrillation 427.31 [facility] [address] [place] [address] [facility] Nov, Atrial fibrillation 427.31 LLC [address] [place] ; S/P Aortic Valve [address] Replacement V43.3 ; S/P Pacemaker Placement - Dual V45.01 and Dyslipidemia 272.4 [facility] [address] [place] [address] ST [place] Nov, [place] [address] [place] [address] [facility] [address] [facility] [address] [facility] Nov, LLC [address] [place] [address] [facility] [address] [facility] ST [place] Mar, Atrial Tachycardia 427.89 ; LLC [address] [place] S/P Aortic Valve [address] Replacement V43.3 ; S/P Pacemaker Placement - Dual V45.01 and Dyslipidemia 272.4 [facility] [address] [place] [address] ST [place] Jan, Atrial Tachycardia 427.89 LLC 410 [place] and S/P Aortic Valve [address] Replacement V43.3 [facility] [address] [place] Jan, LLC [address] [place] [address] [facility] [address] [place] Oct, Atrial Tachycardia 427.89 LLC [address] [place] [address] [facility] [address] [place] August, LLC 410 [place] [address] [facility] [address] [place] Jul, Atrial Tachycardia 427.89 LLC [address] [place] [address] [facility] [address] [place] May, LLC [address] [place] [address] [facility] [address] [place] May, LLC [address] [place] [address] [facility] [address] [facility] [address] [place] Mar, LLC [address] [place] [address] [facility] [address] [place] Jan, Atrial Tachycardia 427.89 ; LLC [address] [place] S/P Aortic Valve [address] Replacement V43.3 and S/P Pacemaker Placement - Dual V45.01 [facility] [address] [facility] ST [place] Jan, S/P Aortic Valve [facility] 410 [place] Replacement V43.3 ; S/P [address] Pacemaker Placement - Dual V45.01 and Atrial Tachycardia 427.89 [facility] [address] [facility] ST [place] Jan, Atrial fibrillation 427.31 [place] [address] [place] [address] [facility] [address] [place] Nov, [place] [address] [place] [address] [facility] [address] [facility] [address] [place] Oct, [place] [address] [place] [address] [facility] [address] [place] Oct, Atrial Tachycardia 427.89 [place] [address] [place] [address] [facility] [address] [facility] [address] [place] Jul, Atrial Tachycardia 427.89 ; LLC [address] [place] S/P Aortic Valve [address] Replacement V43.3 and S/P Pacemaker Placement - Dual V45.01 [facility] [address] [place] Jun, LLC [address] [place] [address] [facility] [address] [place] 16 Jun, 2010 LLC [address] [place] [address] [facility] [address] [place] Jun, LLC [address] [place] [address] [facility] [address] [place] Jun, Atrial Tachycardia 427.89 LLC [address] [place] [address] [facility] [address] [place] May, LLC [address] [place] [address] [facility] [address] [place] May, Atrial Tachycardia 427.89 LLC [address] [place] [address] [facility] [address] [place] Apr, Atrial Tachycardia 427.89 LLC [address] [place] [address] [facility] [address] [place] Mar, LLC [address] [place] [address] [place] [address] [facility] [address] [place] Jan, Atrial Tachycardia 427.89 ; LLC [address] [place] S/P Aortic Valve [address] Replacement V43.3 and S/P Pacemaker Placement - Dual V45.01 [facility] [address] [place] Dec, Sick Sinus Syndrome 427.[address] [place] [address] [facility] [address] [place] Nov, Sick Sinus Syndrome 427.81 LLC [address] [place] and Atrial Tachycardia [address] 427.89 [facility] [address] [place] Jul, Atrial Tachycardia 427.89 ; LLC [address] [place] [address] S/P Aortic Valve [address] Replacement V43.3 and S/P Pacemaker Placement - Dual V45.01 [facility] [address] [place] Jul, LLC [address] [place] [address] [facility] [address] [place] Jul, LLC [address] [place] [address] [facility] [address] [place] Jul, Atrial fibrillation 427.31 LLC [address] [place] [address] [facility] [address] [place] May, LLC [address] [place] [address] [facility] [address] [facility] 12 May, 2009 Atrial Tachycardia 427.89 ; [address] S/P Aortic Valve [address] Replacement V43.3 ; Sick Sinus Syndrome 427.81 and S/P Pacemaker Placement - Dual V45.01 [facility] [address] [facility] 09 May, [address] [address] [facility] [address] [facility] Apr, [address] [address] [facility] [address] [place] [address] Jan, Atrial fibrillation 427.[address] [address] [facility] [address] [place] [address] Oct, Atrial fibrillation 427.[address] [address] IMMUNIZATIONS No Known Immunizations SOCIAL HISTORY Never Assessed REASON FOR VISIT Surg clearance / coumadin PLAN OF CARE VITAL SIGNS MEDICATIONS Unknown [...]
--- OUTSIDE RECORDS SUMMARY | 2017-09-23 16:48 | External Medical Summary ---
:1935 Author Organization [facility] Address [address] [place] [address] Care Team Providers Name Role Phone Scott Oliva Unavailable Unavailable PROBLEMS Type Condition ICD9-CM [id number] Onset Condition SNOMED Code Code Code Dates Status Problem S/P Aortic Valve V43.3 Active 5732451181797 Replacement Problem Dyslipidemia 272.4 Active 325865794 Problem Atrial 427.89 Active 401113537 Tachycardia Problem S/P Pacemaker V45.01 Active 749447801 Placement - Dual Problem Atrial flutter I48.92 Active 4361127 Problem Paroxysmal I48.0 Active 264933184 atrial fibrillation Problem Tobacco abuse Z72.0 Active 31712725 Problem Atrial 427.31 Active 85109601 fibrillation Problem 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 Nov, [place], [place] [id number] [address] August, [facility] [address] [place] [address] fibrillation I48.0 ; Atrial [address] flutter I48.92 ; Presence of prosthetic heart valve Z95.2 ; Presence of cardiac pacemaker Z95.0 ; Tobacco abuse Z72.0 and Pre-operative cardiovascular examination Z01.[address] Jul, [address] [address] Jul, [address] [address] Jul, Atrial flutter I48.92 ; LLC [address] [place] [address] Paroxysmal atrial [address] fibrillation I48.0 ; Presence of prosthetic heart valve Z95.2 ; Presence of cardiac pacemaker Z95.0 and Tobacco abuse Z72.[address] [place] Jul, [place] [address] [facility] [address] [facility] Jun, [place] [address] [facility] [address] [facility] Jun, [place] [address] [facility] [address] [place] [address] Jun, LLC [facility] [place] [address] [facility] [address] [place] [address] Jun, Atrial flutter I48.92 ; LLC [facility] [place] [address] fibrillation I48.0 ; Presence of prosthetic heart valve Z95.2 ; Presence of cardiac pacemaker Z95.0 ; Tobacco abuse Z72.0 and Pre-operative cardiovascular examination Z01.[address] Jun, [facility] atrial [address] fibrillation I48.0 ; [place] [address] flutter I48.92 and Tobacco abuse Z72.[address] 15 Jun, 2017 [place] [address] Jun, LLC [facility] [place] [address] [facility] [address] [place] [address] May, [place] [address] Apr, Presence [facility] cardiac LLC [facility] [place] pacemaker Z95.0 and Sick [address] sinus syndrome I49.5 [facility] [address] [facility] Dec, Atrial flutter I48.92 ; LLC [facility] [place] [address] fibrillation I48.0 ; Presence of prosthetic heart valve Z95.2 ; Presence of cardiac pacemaker Z95.0 and Tobacco abuse Z72.[address] 05 Dec, 2016 [place] [address] Sep, Presence of cardiac LLC [facility] [place] pacemaker Z95.0 and Sick [address] sinus syndrome I49.5 [facility] [address] [facility] Sep, [place] [address] [facility] [address] [facility] Sep, [facility] [place] [address] [facility] [address] [place] [address] August, Atrial flutter I48.92 LLC [place] [address] [facility] [address] [place] [address] 31 Jun, 2016 [facility] [address] [place] pacemaker Z95.0 and Sick [address] sinus syndrome I49.5 [facility] [address] [place] [address] Jun, [place] [address] [facility] [address] [place] [address] Jun, [facility] [place] [address] [facility] [address] [place] [address] Jun, Atrial flutter I48.92 ; LLC [address] [place] [address] fibrillation I48.0 ; Presence of prosthetic heart valve Z95.2 ; Presence of cardiac pacemaker Z95.0 and Tobacco abuse Z72.[address] 14 Jun, 2016 [facility] [place] [address] [facility] [address] [place] [address] Apr, [facility] [place] [address] Mar, [facility] [place] [address] Jan, Atrial flutter I48.92 ; [facility] [address] [place] [address] fibrillation I48.0 ; Presence of prosthetic heart valve Z95.2 ; Presence of cardiac pacemaker Z95.0 and Tobacco abuse Z72.[address] Jan, [facility] [place] [address] Jan, Atrial flutter I48.92 ; [facility] [address] [place] [address] fibrillation I48.0 ; Presence of prosthetic heart valve Z95.2 ; Presence of cardiac pacemaker Z95.0 and Tobacco use Z72.[address] Jan, LLC [address] [place] [address] [facility] [address] [place] Dec, LLC [address] [place] [address] [facility] [address] [place] [address] ST [place] Dec, [facility] [address] [place] fibrillation I48.0 ; [address] Presence of prosthetic heart valve Z95.2 ; Presence of cardiac pacemaker Z95.0 and Atypical atrial flutter I48.4 [facility] [address] [place] [address] ST [place] Dec, S/P Aortic Valve LLC [address] [place] Replacement V43.3 [address] [facility] [address] [place] [address] [facility] Dec, LLC [address] [place] [address] [facility] [address] [place] [address] Sep, [facility] [address] [place] pacemaker Z95.0 and Sick [address] sinus syndrome I49.5 [facility] [address] [place] [address] [facility] Sep, LLC [address] [place] [address] [facility] [address] [place] [address] ST [place] Jun, [facility]mal atrial [facility] [address] [place] fibrillation I48.0 ; [address] Presence of prosthetic heart valve Z95.2 and Presence of cardiac pacemaker Z95.0 [facility] [address] [place] [address] ST [place] Jun, LLC [place] [address] [facility] [address] [facility] [address] [place] Jun, [place] [address] [facility] [address] [facility] [address] [place] Jun, LLC [address] [place] [address] [facility] [address] [place] [address] ST [place] Jun, [place] [address] [facility] [address] [facility] [address] [place] Jun, [place] [address] [facility] [address] [place] [address] ST [place] Apr, LLC [address] [place] [address] [facility] [address] [place] [address] ST [place] Dec, Atrial fibrillation 427.31 LLC [facility] [place] ; S/P Aortic Valve [address] Replacement V43.3 and S/P Pacemaker Placement - Dual V45.01 [facility] [address] [facility] [address] [place] 16 Dec, 2014 Atrial Tachycardia 427.89 ; LLC [address] [place] S/P Aortic Valve [address] Replacement V43.3 ; S/P Pacemaker Placement - Dual V45.01 and Atrial fibrillation 427.31 [facility] [address] [place] [address] ST [place] 15 Dec, 2014 LLC [facility] [place] [address] [facility] [address] [place] [address] ST [place] 16 Sep, 2014 LLC [facility] [place] [address] [facility] [address] [place] [address] [facility] 31 Jun, 2014 S/P Pacemaker Placement - LLC [facility] [place] Dual V45.01 and Sick Sinus [address] Syndrome 427.81 [facility] [address] [place] [address] [place] 10 Jun, 2014 Atrial fibrillation 427.31 LLC [facility] [place] ; S/P Aortic Valve [address] Replacement V43.3 and S/P Pacemaker Placement - Dual V45.01 [facility] [address] [place] [address] [facility] Apr, LLC [facility] [place] [address] [facility] [address] Mar, Atrial fibrillation 427.31 [place] [address] [place] 30 Dec, 2013 S/P Pacemaker Placement - LLC [facility] [place] Dual V45.01 and Sick Sinus [address] Syndrome 427.81 [facility] [address] Dec, [place] [address] [facility] [address] [place] [address] [facility] [address] [place] [address] ST [place] Nov, [place] [address] [place] [address] [facility] [address] [place] [address] ST [place] Nov, LLC [facility] [place] [address] [facility] [address] [place] [address] ST [place] Nov, Atrial fibrillation 427.31 LLC [facility] [place] ; S/P Aortic Valve [address] Replacement V43.3 and S/P Pacemaker Placement - Dual V45.01 [facility] [address] [place] [address] ST [place] Sep, S/P Pacemaker Placement - [address] Dual V45.01 and Sick Sinus [address] Syndrome 427.81 [facility] [address] [place] [address] [place] August, Atrial fibrillation 427.[address] ; S/P Aortic Valve [address] Replacement V43.3 and S/P Pacemaker Placement - Dual V45.01 [facility] [address] August, [place] [address] [facility] [address] Jun, [place] [address] [facility] [address] [place] [address] [facility] Jun, [address] [address] [facility] [address] May, [place] [address] [facility] [address] [place] [address] May, Atrial fibrillation 427.[address] ; S/P Aortic Valve [address] Replacement V43.3 and S/P Pacemaker Placement - Dual V45.01 [facility] [address] May, [place] [address] [facility] [address] May, [place] [address] [facility] [address] [place] [address] Apr, Atrial fibrillation 427.[address] ; S/P Aortic Valve [address] Replacement V43.3 and S/P Pacemaker Placement - Dual V45.[address] Apr, [address] [address] [facility] [address] Apr, [place] [address] [facility] [address] [place] [address] Mar, [address] [address] [facility] [address] [place] [address] Mar, Atrial fibrillation 427.[address] ; S/P Aortic Valve [address] Replacement V43.3 ; S/P Pacemaker Placement - Dual V45.01 and Dyslipidemia 272.4 [facility] [address] [facility] [address] [place] Mar, Atrial Tachycardia 427.89 ; LLC [address] [place] S/P Aortic Valve [address] Replacement V43.3 and S/P Pacemaker Placement - Dual V45.01 [facility] [address] [place] 24 Jan, 2013 LLC [address] [place] [address] [facility] [address] [place] [address] ST [place] Dec, LLC [address] [place] [address] [facility] [address] [facility] [address] [place] Dec, Atrial fibrillation 427.31 LLC [address] [place] [address] [facility] [address] [place] [address] [facility] Dec, LLC [address] [place] [address] [facility] [address] [place] [address] [facility] Nov, LLC 410 [place] [address] [facility] [address] [place] [address] [facility] Nov, LLC [address] [place] [address] [facility] [address] [place] [address] [facility] Nov, Chronic Anticoagulation LLC [address] [place] V58.61 ; Dyslipidemia 272.4 [address] and Atrial fibrillation 427.31 [facility] [address] [place] [address] [facility] Nov, Atrial fibrillation 427.31 LLC [address] [place] ; S/P Aortic Valve [address] Replacement V43.3 ; S/P Pacemaker Placement - Dual V45.01 and Dyslipidemia 272.4 [facility] [address] [place] [address] ST [place] Nov, LLC [address] [place] [address] [facility] [address] [facility] [address] [facility] Nov, LLC [address] [place] [address] [facility] [address] [facility] [address] [place] Mar, Atrial Tachycardia 427.89 ; LLC [address] [place] S/P Aortic Valve [address] Replacement V43.3 ; S/P Pacemaker Placement - Dual V45.01 and Dyslipidemia 272.4 [facility] [address] [place] [address] ST [place] Jan, Atrial Tachycardia 427.89 LLC 410 [place] and S/P Aortic Valve [address] Replacement V43.3 [facility] [address] [place] Jan, LLC 410 [place] [address] [facility] [address] [place] Oct, Atrial Tachycardia 427.89 LLC [address] [place] [address] [facility] [address] [place] August, LLC 410 [place] [address] [facility] [address] [place] Jul, Atrial Tachycardia 427.89 LLC [address] [place] [address] [facility] [address] [place] May, LLC 410 [place] [address] [facility] [address] [place] May, LLC [address] [place] [address] [facility] [address] [facility] [address] [place] Mar, LLC [address] [place] [address] [facility] [address] [place] Jan, Atrial Tachycardia 427.89 ; LLC 410 [place] S/P Aortic Valve [address] Replacement V43.3 and S/P Pacemaker Placement - Dual V45.01 [facility] [address] [facility] [address] [place] Jan, S/P Aortic Valve LLC 410 [place] Replacement V43.3 ; S/P [address] Pacemaker Placement - Dual V45.01 and Atrial Tachycardia 427.89 [facility] [address] [facility] [address] [place] Jan, Atrial fibrillation 427.31 LLC [address] [place] [address] [facility] [address] [place] Nov, LLC [address] [place] [address] [facility] [address] [facility] [address] [place] Oct, LLC [address] [place] [address] [facility] [address] [place] Oct, Atrial Tachycardia 427.89 LLC [address] [place] [address] [facility] [address] [facility] [address] [place] Jul, Atrial Tachycardia 427.89 ; LLC [address] [place] S/P Aortic Valve [address] Replacement V43.3 and S/P Pacemaker Placement - Dual V45.01 [facility] [address] [place] Jun, LLC 410 [place] [address] [facility] [address] [place] 16 Jun, 2010 LLC [address] [place] [address] [facility] [address] [place] Jun, LLC [address] [place] [address] [facility] [address] [place] Jun, Atrial Tachycardia 427.89 LLC [address] [place] [address] [facility] [address] [place] May, LLC [address] [place] [address] [facility] [address] [place] May, Atrial Tachycardia 427.89 LLC [address] [place] [address] [facility] [address] [place] Apr, Atrial Tachycardia 427.89 LLC [address] [place] [address] [facility] [address] [place] Mar, LLC [address] [place] [address] [place] [address] [facility] [address] [place] Jan, Atrial Tachycardia 427.89 ; LLC [address] [place] S/P Aortic Valve [address] Replacement V43.3 and S/P Pacemaker Placement - Dual V45.01 [facility] [address] [place] Dec, Sick Sinus Syndrome 427.[address] [place] [address] [facility] [address] [place] Nov, Sick Sinus Syndrome 427.81 LLC [address] [place] and Atrial Tachycardia [address] 427.89 [facility] [address] [place] Jul, Atrial Tachycardia 427.89 ; LLC [address] [place] [address] S/P Aortic Valve [address] Replacement V43.3 and S/P Pacemaker Placement - Dual V45.01 [facility] [address] [place] Jul, LLC [address] [place] [address] [facility] [address] [place] Jul, LLC [address] [place] [address] [facility] [address] [place] Jul, Atrial fibrillation 427.31 LLC [address] [place] [address] [facility] [address] [place] May, LLC [address] [place] [address] [facility] [address] [facility] 12 May, 2009 Atrial Tachycardia 427.89 ; [address] S/P Aortic Valve [address] Replacement V43.3 ; Sick Sinus Syndrome 427.81 and S/P Pacemaker Placement - Dual V45.01 [facility] [address] [facility] 09 May, [address] [address] [facility] [address] [facility] Apr, [address] [address] [facility] [address] [place] [address] Jan, Atrial fibrillation 427.[address] [address] [facility] [address] [place] [address] Oct, Atrial fibrillation 427.[address] [address] IMMUNIZATIONS No Known Immunizations SOCIAL HISTORY Never Assessed REASON FOR VISIT stress test PLAN OF CARE VITAL SIGNS MEDICATIONS Unknown [...]
--- OUTSIDE RECORDS SUMMARY | 2017-09-23 16:48 | External Medical Summary ---
[...] Medications Results No Known Results Summary Purpose [employer]ter Submission
--- NOTE | 2017-09-23 17:27 | Emergency Department Report ---
Male Urogenital HPI - General Chief complaint: Urogenital-Male Stated complaint: post surg problems Source: patient, family Mode of arrival: wheelchair - History of Present Illness HPI Narrative: PT presents with a complaint of nausea/ vomiting and urinary frequency with discomfort for the last few days. Pt reports he has had difficulties since he had a bladder tumor and 6 polyps removed on the 9th of this month. His reports he has not had much of an appetite. Pt states it is because he has had a sore throat and he vomits every time he eats something. Pt denies fever, constipation, or diarrhea. He has had some pelvic pain but denies upper abdominal pain. Duration: constant - Related Data Home Medications Medication Instructions Recorded Confirmed Ferrous Sulfate [Iron] 325 mg PO DAILY 06/13/17 09/23/17 Sotalol [Betapace] 80 mg PO BID 06/13/17 09/23/17 Tamsulosin [Flomax] 0.4 mg PO HS 09/06/17 09/23/17 Bumetanide Tab [Bumex 1 mg Tab] 1 mg PO DAILY 09/23/17 09/23/17 Finasteride [Proscar] 5 mg PO DAILY 09/23/17 09/23/17 PredniSONE [Deltasone 5 mg] 5 mg PO DAILY 09/23/17 09/23/17 Warfarin Sodium [Warfarin Sodium] 5 mg PO NOON 09/23/17 09/23/17 Allergies Allergy/AdvReac Type Severity Reaction Status Date / Time No Known Allergies Allergy Verified 09/23/17 16:47 Review of Systems All systems: reviewed and negative except as stated Constitutional: Reports: as per HPI Respiratory: Reports: as per HPI Gastrointestinal: Reports: as per HPI Genitourinary: Reports: as per HPI Neurological: Reports: as per HPI [facility] Patient Stated Medical History Dementia Yes Cataracts Yes Cardiac Arrhythmia Yes: AFib Hypotension Yes Other Cardiology Yes: Hypotension Chronic Obstructive Pulmonary Yes Disease (COPD) Sleep Apnea No Gastroesophageal Reflux Yes Disease Ulcer Yes: HX Hx Benign Prostatic Yes Hyperplasia Other Yes: BLADDER TUMOR,HEMATURIA Anemia Yes Other Hematologic Yes: Warfarin Shingles Yes: HX Surgical History: Pacemaker. CABG Family History Updates: Both parents had Alzheimer's. Father around age 80 ; mother later in her 80s. - Social History Smoking status: Current some day smoker Packs-years: 30 second hand exposure: No Substance use type: does not use Alcohol intake frequency: former alcohol drinker (quit 30 years ago) Household members: spouse Current occupational status: employed Current occupation: [employer] Does patient use chewing tobacco?: No Current residence: [facility] Physical Exam - Limitations Limitations: no limitations - General General appearance: alert - Normal Exams: Head:: Normocephalic without trauma Eyes:: Pupils are PERRLA w/ EOMI ENMT:: No facial trauma, nasal exudates, pharyngeal erythema, or exudates are noted Neck:: Full range of motion, without adenopathy Chest/Respirations:: Clear all kearns, with good airflow, and symmetry bilaterally Cardiovascular:: Regular rate and rhythm, without murmur or gallop, Pulses 2+ all extremities, capillary refill, <2 seconds all extremities Abdomen:: Bowel sounds positive, soft, non-tender, non-distended Musculoskeletal:: No tenderness, or deformity noted, good range of motion, all extremities Integumentary:: No rashes Neurological:: Patient is alert, and oriented, cranial nerves, motor/sensory/ cerebellar, exams w/o gross deficits, to observation Psychiatric:: Patient exhibits, appropriate attention, emotion and affect Course Vital Signs Temperature 98.1 F 09/23/17 16:30 Pulse Rate 60 09/23/17 16:30 Respiratory Rate 18 09/23/17 16:30 Blood Pressure 126/60 09/23/17 16:30 Pulse Oximetry 100 09/23/17 16:30 Temperature 98.1 F 09/23/17 16:30 Pulse Rate 60 09/23/17 16:30 Respiratory Rate 18 09/23/17 16:30 Blood Pressure 126/60 09/23/17 16:30 Pulse Oximetry 100 09/23/17 16:30 Urogenital-Male - MDM Narrative Medical decision making narrative: Labs reviewed and compared to previous. Hgb of 8.1 trends to be baseline for this pt. He is currently taking supplemental iron. Current Na is 127 with previous on the 10th of this month at 148. Labs also indicate UTI. PT receiving IV Rocephin and NS. Vital signs remain stable throughout stay. Dr Cheng agrees to admit. PIF order made. - Differential Diagnosis Likely: urinary tract infection, urethritis, epididymitis, prostatitis, acute retention of urine - Lab Data Attestation: I reviewed the patient's lab results. Result diagrams: 09/23/17 17:40 09/23/17 17:40 - Radiology Data Attestation: I reviewed the patient's radiology results. (CT read per V rad) Disposition Clinical Impression: Hyponatremia Urinary tract infection Qualifiers: Urinary tract infection type: acute cystitis Hematuria presence: with hematuria Qualified Code(s): N30.01 - Acute cystitis with hematuria Anemia Qualifiers: Anemia type: iron deficiency Iron deficiency anemia type: other iron deficiency Qualified Code(s): D50.8 - Other iron deficiency anemias Disposition: 02 To [facility] Acute Care Condition: Stable Time of Disposition: 19:38 - Seen By: midlevel
[2017-09-23] MEDS ORDERED: NS 1,000 ML IV ONE (18:08)
[2017-09-23] MEDS ORDERED: SALINE FLUSH 10ml SYRINGE ONE (18:08)
[2017-09-23] MEDS ORDERED: IODIXANOL 320mg/ml 100ml INJECTION IV ONE (18:08)
[2017-09-23] MEDS: SALINE FLUSH 10ml SYRINGE IVF PRN (18:19)
[2017-09-23] MEDS ORDERED: CEFTRIAXONE (ER USE ONLY) 1 GM in NS 100 ML IV ONE ×2 (19:07→19:49)
[2017-09-23] MEDS ORDERED: NS FLUSH BAG 500ml IV PRN (19:25)
[2017-09-23] MEDS ORDERED: ONDANSETRON 4 MG/2 ML INJECTION IVP PRN (19:49)
[2017-09-23] MEDS ORDERED: HYDROCODONE/APAP 5mg/325mg TABLET PO PRN (19:49)
[2017-09-23] MEDS ORDERED: ACETAMINOPHEN 325 MG TABLET PO PRN (19:49)
[2017-09-23] MEDS: NS 1,000 ML IV SCH (20:16)
--- NOTE | 2017-09-23 20:36 | History & Physical Report ---
History of Present Illness Date: 09/24/17 Chief complaint: weakness HPI: This is a 81 y/o male who has dementia and is unable to provide meaningful history. Patient is here with his and son. not much help either. The patient had polyps removed from his bladder on 09/07. Since then he has had episodes of nausea/vomiting. The patient presents tonight because of worsening weakness and increased confusion. IN the ED the patient had a CT head that was normal He is found to have chronic anemia. His serum sodium is 127. Further the patient's urine is infected. We will admit the patient. stop diuretic therapy. hydrate. tx UTI and repeat labs in the am. Review of Systems Review of systems: very difficult to obtain meaningful history. no fever, no cough, no congestion , increased confusion, no chest pain, low abdomen pain with nausea/vimting. diarhrea as well. no neuro focal concerns. Past Medical History Medical History Updates: atrial fibrillation, valve replacement surgery, diastolic heart disease, iron deficiency anemia, bph, dementia type unspecified Surgical History: Pacemaker. CABG Family History Updates: unkown at this time Family History: As Above - Social History Smoking status: Current some day smoker Substance use type: does not use Alcohol intake frequency: does not drink Housing: house Household members: spouse Current occupational status: retired Current occupational exposures/hazards: No Current residence: Apartment/Private Home Medications Home Medications Medication Instructions Recorded Confirmed Type Ferrous Sulfate [Iron] 325 mg PO DAILY 06/13/17 09/23/17 History Sotalol [Betapace] 80 mg PO BID 06/13/17 09/23/17 History Tamsulosin [Flomax] 0.4 mg PO HS 09/06/17 09/23/17 History Bumetanide Tab [Bumex 1 mg Tab] 1 mg PO DAILY 09/23/17 09/23/17 History Finasteride [Proscar] 5 mg PO DAILY 09/23/17 09/23/17 History PredniSONE [Deltasone 5 mg] 5 mg PO DAILY 09/23/17 09/23/17 History Warfarin Sodium [Warfarin Sodium] 5 mg PO NOON 09/23/17 09/23/17 History Allergies Allergy/AdvReac Type Severity Reaction Status Date / Time No Known Allergies Allergy Verified 09/23/17 16:47 Exam Vital Signs: Temperature 97.4 F 09/23/17 19:49 Pulse Rate 60 09/23/17 19:49 Respiratory Rate 20 09/23/17 19:49 Blood Pressure 144/72 H 09/23/17 19:49 Pulse Oximetry 92 09/23/17 19:49 Telemetry Rhythm: Sinus Rhythm Height/Weight/BMI: Height 1.75 m Weight 61.8 kg Body Mass Index 20.1 - Constitutional Present: no acute distress - Routine HEENT Exam Head: Present: normocephalic, atraumatic Eye: Present: EOMI ENT: Present: mucous membranes dry - Routine Respiratory Exam Present: CTA bilaterally - Routine Cardiovascular Exam Present: RRR Comments: valve click appreciatd - Routine Abdominal Exam Present: soft, normoactive bowel sounds, non distended, non tender - Routine Extremities Exam Present: edema - Routine Back/Spine/Pelvis Exam Back/Spine: Present: full ROM - Routine Skin Exam Present: intact - Routine Neurological Exam Present: alert, moving all extremities. Absent: oriented X3, motor deficit, altered mental status - Routine Psychiatric Exam Absent: normal affect, normal thought process Results - Labs CBC & Chem 7: 09/24/17 04:30 09/24/17 04:30 Labs: reviewed and will be discussed below CT abdoen and pelvis small amount of ascites Assessment and Plan (1) Anemia Current visit: Yes Status: Acute (2) Hyponatremia Current visit: Yes Status: Acute (3) Urinary tract infection Current visit: Yes Status: Acute (4) Encephalopathy acute Current visit: No Status: Acute (5) Atrial fibrillation Current visit: Yes Status: Acute (6) S/P aortic valve replacement Current visit: Yes Status: Acute (7) Dementia Current visit: Yes Status: Acute Assessment and Plan: 1. hyponatremia acute POA: due to diuretic therapy, increased gi loss. SIADH labs sent to be complete but this is most likely due to hypovolemia. repeat labs in the am 2. UTI acute POA: rocephin, adjust for cx. would not r/c pérez catheter 3. normocytic anemia chronic POA: at this time on iron , not worse. repeat labs in the am 4. encephalopathy metabolic acute POA: hard to appreciate to a degree with underlying dementia. most likely 2/2 hyponatremia, acute UTI and dehydration. monitor and if worsen and if not back to baseline by 24 hr consider further neuro workup 5. dementia type unspecified chronic POA: to be aware of 6. s/p mechanical heart valve: inr just above 2.5, no further issue 7. atrial fib chronic not POA: anticoagulated, sotolol 8. bladder polyps s/p transurethral resection: to be aware of. note I would assume that the patient's coumadin was held for procedure. There was a time where patient was at increased risk of CVA with valve. Might make further neuro workup more pertinent if not improve easily 9. DVT ppx; SCD, coumadin 10. gastric ppx: PPI DVT Prophylaxis: SCD's, Coumadin GI Prophylaxis: Protonix Resuscitation Status: Full Code - Time spent with patient Time with patient PN: 35 minutes - Physician Narrative Physician: Dona Gimenez MD Narrative: Date: 09/24/17 Time: 1055 Please refer supplemental note dictated 09/24/17. Hospital Course Summary Disclaimer: The visit summary below is not to be considered part of the above Progress Note.
[2017-09-23] MEDS: TAMSULOSIN 0.4 MG CAPSULE PO SCH (21:00)
[2017-09-23] MEDS: SOTALOL 80 MG TABLET PO SCH (21:00)
[2017-09-24] MEDS: NS 1,000 ML IV SCH ×3 (05:17→16:54)
[2017-09-24] MEDS: SOTALOL 80 MG TABLET PO SCH ×2 (08:39→20:18)
[2017-09-24] MEDS: POLYETHYL GLYCOL 3350 17gm PACKET PO SCH (08:39)
[2017-09-24] MEDS: FERROUS SULFATE 324 MG TABLET PO SCH (08:41)
[2017-09-24] MEDS: FINASTERIDE 5 MG TABLET PO SCH (08:41)
[2017-09-24] MEDS: PredniSONE 5 MG TABLET PO SCH (08:41)
--- NOTE | 2017-09-24 11:18 | History & Physical Report ---
History of Present Illness Date: 09/24/17 Chief complaint: weakness, confusion HPI: Mr. Valle is a 81 y/o male known prior admissions. He presented to the emergency room yesterday evening with his and son reported urinary discomfort for several days in conjunction with nausea, vomiting, and generalized weakness. The patient underwent cystoscopy with resection of bladder tumor on 09/07/17 and since that time his appetite has been poor and in the emergency room he reported vomiting every time he eats something. This morning he describes some mild soreness in his abdomen and that he has " problems going on" but could not specify what kind of problems he was having. He reported having some mild nausea and occasional emesis but minimized all symptoms. He was able to tell me the date of his recent surgery and that he scheduled for follow-up with Dr. Carr on 09/29 for results of surgery. He denied lightheadedness, fever, chills, diarrhea, change in bowel function, or hematemesis. He reported that he is not hungry or thirsty and reported that his last bowel movement was "not long ago". Family is not at bedside this morning but I spoke with his by phone and she indicated he became increasingly confused over the past 1-2 days and that this is happened previously with dehydration. In the emergency room CT abd/pelvis was negative for acute pathology, pyuria suggested urinary tract infection, and sodium was depressed. Patient was recently started on diuretic for lower extremity edema per history of the patient's . The patient reports he's had a Garcia catheter in since surgery earlier this month but his reports that that is untrue and catheter was replaced last night. Review of Systems ROS unobtainable: due to mental status (patient denies all symptoms asked on ROS but some information provided is clearly inaccurate (Garcia since surgery, denies transfusion since hospitalization in June but records indicate he's had several), reports recently started on Bumex for lower extremity edema and outpatient records indicate recent dysuria but inability to obtain UA.) Past Medical History Medical History: Medical History Atrial fibrillation BPH (benign prostatic hyperplasia) Bladder tumor resection 09/07/17, Dr. Carr. High-grade urothelial carcinoma. Chronic kidney disease (CKD), stage III (moderate) Pacemaker Pancytopenia Dr. Shafer Pituitary adenoma macroadenoma, inoperable. Dr. Ch Medical History Updates: anemia chronic disease-possible aplastic anemia Surgical History: Pacemaker. AVR. Cystoscopy with transurethral resection of bladder tumor 09/07/17-Dr. Carr Family History: Family History (Last Updated 09/24/17 @ 08:28 by Dona Gimenez MD) Father Alzheimer disease Mother Alzheimer disease Family History: As Above - Social History Smoking status: Current some day smoker (2-3 cigarettes per day) Substance use type: does not use Alcohol intake frequency: former alcohol drinker (his continued many years ago) Household members: spouse Current residence: Apartment/Private Home Social history: PCP-Dr. Pedro Mane Hematology-Dr. Shafer Urology-Dr. Carr Alternate [id number] and sons CODE STATUS-full Medications Home Medications Medication Instructions Recorded Confirmed Type Ferrous Sulfate [Iron] 325 mg PO DAILY 06/13/17 09/23/17 History Sotalol [Betapace] 80 mg PO BID 06/13/17 09/23/17 History Tamsulosin [Flomax] 0.4 mg PO HS 09/06/17 09/23/17 History Bumetanide Tab [Bumex 1 mg Tab] 1 mg PO DAILY 09/23/17 09/23/17 History Finasteride [Proscar] 5 mg PO DAILY 09/23/17 09/23/17 History PredniSONE [Deltasone 5 mg] 5 mg PO DAILY 09/23/17 09/23/17 History Warfarin Sodium [Warfarin Sodium] 5 mg PO NOON 09/23/17 09/23/17 History Allergies Allergy/AdvReac Type Severity Reaction Status Date / Time No Known Allergies Allergy Verified 09/23/17 16:47 Exam Vital Signs: Temperature 97.8 F 09/24/17 07:21 Pulse Rate 59 L 09/24/17 08:39 Respiratory Rate 18 09/24/17 07:21 Blood Pressure 122/54 09/24/17 07:21 Pulse Oximetry 99 - RA 09/24/17 07:21 EXAM: General-NAD, cooperative, pleasantly confused and answers questions appropriately about half the time HEENT-PERRL, EOMI without nystagmus, conjugate gaze, conjunctiva clear, sclera anicteric, facial structures symmetric, oropharynx clear-no exudates/tongue slightly red and glossy-membranes moist, neck supple and without adenopathy Lungs-respirations nonlabored, fair airflow with good inspiratory effort, breath sounds clear Cardiac-regular rhythm, S1-S2, S2 click, no murmur appreciated Abd-mildly distended, nontender but some voluntary guarding present, diminished bowel sounds, no peritoneal signs Ext-without edema Skin-without evidence of wounds or rashes MS-no active joint inflammation, minor degenerative changes small joints of the hands, atrophy in the muscles of the hands Neuro-cranial nerves 3-12 intact, facial structure symmetric, medical lab technologist symmetric, no drift of the upper extremities, no tremors, plantar flexion 4/5, symmetric movements in the lower extremities but has difficulty following instructions to formally test power in the lower extremities, sensation intact to light touch/ cold 4 extremities Psych-dull, oriented to "hospital" Paced: 100% Height/Weight/BMI: Height 1.75 m Weight 62.3 kg Body Mass Index 20.1 Results - Labs CBC & Chem 7: 09/24/17 04:30 09/24/17 04:30 Labs: On admission 09/23 at 1740: WBC 4.0, hemoglobin 8.1, INR 2.45, sodium 127, BUN 12 , creatinine 1.8; urinalysis with 20-30 RBC, 10-20 WBC, positive nitrate, positive leukocyte esterase, positive bacteria. Urine sodium 147, urine osmolality and urine creatinine pending Microbiology Results: Urine culture pending Strep swab (throat) negative, culture pending - Imaging and Cardiology CT scan - abdomen Status: image reviewed by me (no acute pathology appreciated although there do appear to be some fluid-filled loops of bowel distally) Assessment and Plan (1) Encephalopathy acute Current visit: No Status: Acute (2) Hyponatremia Current visit: Yes Status: Acute (3) Urinary tract infection Current visit: Yes Status: Acute Assessment and Plan: Assessment: Acute encephalopathy Generalized weakness Hyponatremia Urinary tract infection Acute kidney injury CKD-3 Aortic valve replacement Atrial fibrillation Bladder tumor/malignancy-diagnosis not known by patient yet Pituitary macroadenoma BPH Plan: Mr. Valle was admitted with acute encephalopathy and generalized weakness in conjunction with acute kidney injury, hyponatremia, and urinary tract infection. Bumex was recently initiated for lower extremity edema and dehydration seems likely however his weight is up from prior admission in June and only down 2 kg from earlier this month. BUN was not elevated as I would anticipate with dehydration. Nonetheless, continue hydration and monitor electrolytes closely. Patient received contrast with CT in the emergency room last night which made slow recovery of renal function. Baseline creatinine is about 1.0-1.5 with GFR of 45 earlier this month. Additionally check magnesium following recent diuretic therapy. Continue antibiotics for urinary tract infection. PT/OT consults pending to assess functional status. Hemoglobin down slightly with initial hydration-may require transfusion prior to discharge. Continue warfarin for history atrial fibrillation/AVR. Continue sotalol provided blood pressure is stable. Status discussed with patient's who reports he is more alert this morning than he was yesterday but not yet at baseline. She denies past history of dementia but reports acute confusion has developed in conjunction with illness and dehydration. Old records reviewed, outpatient records reviewed. DVT Prophylaxis: Coumadin Resuscitation Status: Full Code - Physician Narrative Narrative: Date: 09/24/17 Time: 1114 Hospital Course Summary Disclaimer: The visit summary below is not to be considered part of the above Progress Note. Hospital Course: 09/23/17-09/24/17 Mr. Valle was admitted with acute encephalopathy and generalized weakness in conjunction with acute kidney injury, hyponatremia, and urinary tract infection. Bumex was recently initiated for lower extremity edema and dehydration seems likely however his weight is up from prior admission in June and only down 2 kg from earlier this month. BUN was not elevated as I would anticipate with dehydration. Nonetheless, continue hydration and monitor electrolytes closely. Patient received contrast with CT in the emergency room last night which made slow recovery of renal function. Baseline creatinine is about 1.0-1.5 with GFR of 45 earlier this month. Additionally check magnesium following recent diuretic therapy. Continue antibiotics for urinary tract infection. PT/OT consults pending to assess functional status. Hemoglobin down slightly with initial hydration-may require transfusion prior to discharge. Continue warfarin for history atrial fibrillation/AVR. Continue sotalol provided blood pressure is stable. Status discussed with patient's who reports he is more alert this morning than he was yesterday but not yet at baseline. She denies past history of dementia but reports acute confusion has developed in conjunction with illness and dehydration. Full code; patient will return to the care of Dr. Mane at discharge.
[2017-09-24] MEDS ORDERED: WARFARIN - PHARMACY CONSULT MC ONE (11:52)
[2017-09-24] MEDS ORDERED: WARFARIN 5 MG TABLET PO SCH (12:00)
--- NOTE | 2017-09-24 12:45 | Pharmacy Consult ---
Pharmacy Consult-Warfarin - Laboratory Information 09/24/17 04:30 Hgb 7.6 L Hct 23.8 L - Consult Information 81 y.o. Male with history of a. fib and chronic anticoagulation with warfarin. Home Warfarin dose: 5 mg po daily. goal INR = 2.0 to 3.0. Patient's home Warfarin dose was continued on admission. Warfarin 5 mg po dose received today at noon. Pharmacy will monitor and dose. Thank you, Silvia Skinner,
[2017-09-24] MEDS: CEFTRIAXONE 1 G in NS 100 ML IV SCH (19:31)
[2017-09-24] MEDS: TAMSULOSIN 0.4 MG CAPSULE PO SCH (20:18)
--- NOTE | 2017-09-25 08:35 | Pharmacy Consult ---
Pharmacy Consult-Warfarin - Laboratory Information 09/24/17 09/24/17 09/25/17 04:30 12:14 04:08 Hgb 7.6 L 7.4 L Hct 23.8 L 23.4 L INR Albumin 3.7 09/25/17 04:08 Hgb Hct INR 3.38 H Albumin - Consult Information 81 y.o. Male with history of a. fib and chronic anticoagulation with warfarin. Home Warfarin dose: 5 mg po daily. goal INR = 2.0 to 3.0. date INR dose 09/24 2.45 (on 09/23 admission) 5 mg 09/25 3.38 plan: no warfarin dose INR is supratherapeutic at 3.38 and has increased significantly since INR of 2.45 on admission. Will give no warfarin dose today. Potential drug-drug interaction exists between Ceftriaxone and Warfarin, this has the potential to increase INR and risk of bleeding. This interaction is likely contributing to the high INR value. Pharmacy will monitor and dose. Thank you, Silvia Skinner,
[2017-09-25] MEDS: FERROUS SULFATE 324 MG TABLET PO SCH (08:56)
[2017-09-25] MEDS: SOTALOL 80 MG TABLET PO SCH ×2 (08:56→20:19)
[2017-09-25] MEDS: FINASTERIDE 5 MG TABLET PO SCH (08:56)
[2017-09-25] MEDS: PredniSONE 5 MG TABLET PO SCH (08:56)
[2017-09-25] MEDS: POLYETHYL GLYCOL 3350 17gm PACKET PO SCH (08:56)
--- NOTE | 2017-09-25 10:36 | CT Scan Report ---
Indication: recent bladder surgery, vomiting, abd pain PROCEDURE: CT abdomen pelvis w con: Encounter: Initial Comparison: None Technique: Axial CT images were performed through the abdomen and pelvis after the administration of intravenous contrast. Coronal and sagittal two-dimensional reformats. Automated Exposure Control and Iterative Reconstruction dose reducing techniques were utilized. Contrast: Visipaque 320 75 mL Findings: Fibrosis in both lung bases. Fatty infiltration of the liver with a slightly nodular contour suggesting cirrhosis. No enhancing liver mass or bile duct dilatation. The gallbladder, spleen, pancreas and adrenal glands are normal. Trace ascites. The kidneys are normal. No abdominal or pelvic adenopathy. Scattered atherosclerotic plaque. Garcai catheter in the thick-walled bladder. Fluid in the colon diffusely. No abnormally dilated small bowel loops seen. Bone windows show degenerative change in the spine. Impression: Evidence of a gastroenteritis. There is a preliminary report by [id number]. .
--- NOTE | 2017-09-25 17:44 | Progress Note ---
- Date 09/25/17 Subjective: Neema was resting in bed when seen this morning and when reevaluated while family members were present this afternoon. He pulls the covers up to his neck. He had not touched his breakfast tray and indicated he didn't have an appetite when seen initially. He denied nausea or vomiting but reported that if he eats his stomachaches. He denied heartburn, diarrhea, or constipation. He denied dyspnea, lightheadedness, or weakness and has been getting up independently to go to the bathroom per nursing. He is voiding frequently typically voiding about 200 mL at a time per nursing but not using a hat so nursing is unable to definitely quantify urine output. Patient reports persistent dysuria but denies hematuria. Bladder scans have been obtained on a number of occasions which have been consistently low. Patient denies sore throat Objective Vital signs: Temperature 98.1 F 09/25/17 16:00 Pulse Rate 60 09/25/17 16:00 Respiratory Rate 16 09/25/17 16:00 Blood Pressure 135/57 09/25/17 16:00 Pulse Oximetry 100 - RA 09/25/17 16:00 Weight 63.4 kg (up 1.6 kg from admission) NAD, drowsy, confused, oriented to [facility] but can't identify date or why he is hospitalized Conjugate gaze, EOMI, pupils 2 mm, oropharynx clear-tongue slightly erythematous /glossy Respirations nonlabored, good airflow, breath sounds clear Regular rhythm, S1-S2 (telemetry consistently AV paced rhythm at 60) Abdomen slightly distended, diffusely moderately tender including suprapubic tenderness, Daly's sign positive, no peritoneal signs present, normal bowel sounds Extremities without edema Moving all extremities well, gets in and out of bed independently and ambulates without assistance stably Height/Weight/BMI: Height 1.75 m Weight 63.4 kg Body Mass Index 20.1 Results - Labs CBC & Chem 7: 09/25/17 04:08 09/25/17 10:09 Labs: At 4 AM sodium 128, potassium 4.5, bicarbonate 19, BUN 15, creatinine 1.3. Urine osmolality on admission 405 Repeat urine sodium today 109, urine osmolality today pending - Imaging and Cardiology CT scan - head Status: image reviewed by me (suprasellar mass present consistent with macroadenoma, radiology reports unchanged from prior films and reviewing CT head stating back to 2013 there is no apparent change. No acute pathology present.) Assessment and Plan (1) Encephalopathy acute Current visit: No Status: Acute (2) Hyponatremia Current visit: Yes Status: Acute (3) Urinary tract infection Current visit: Yes Status: Acute Assessment and Plan: Assessment: Acute encephalopathy Generalized weakness Hyponatremia Urinary tract infection Acute kidney injury CKD-3 Aortic valve replacement Atrial fibrillation Bladder tumor/malignancy-diagnosis not known by patient yet Pituitary macroadenoma BPH Anorexia Generalized abdominal discomfort Plan: Patient's son reports that Neema is about 90% better but still confused-he still seems significantly encephalopathic to me and remains anorexic. Overread of abdominal/pelvic CT from admission reports cirrhotic contour of the liver and fluid filled colon suggesting gastroenteritis-patient had 2 soft or loose stools yesterday but has not had recurrent bowel movements to raise concern. Initial urine sodium/osmolality were both inappropriately high compared to serum osmolality and sodium; sodium did not improve with hydration started based on clinical suspicion of dehydration and was subsequently discontinued yesterday evening. Continue to monitor with fluid restriction which is basically being self imposed by the patient. Discontinue ceftriaxone-urine culture negative to date. Doses given 09/23 and . Continue to monitor hemoglobin closely. Warfarin on hold-INR elevated with poor oral intake. DVT Prophylaxis: SCD's - Physician Narrative Narrative: Date: 09/25/17 Time: 1739 Hospital Course Summary Disclaimer: The visit summary below is not to be considered part of the above Progress Note. Hospital Course: 09/23/17-09/24/17 Mr. Valle was admitted with acute encephalopathy and generalized weakness in conjunction with acute kidney injury, hyponatremia, and urinary tract infection. Bumex was recently initiated for lower extremity edema and dehydration seems likely however his weight is up from prior admission in June and only down 2 kg from earlier this month. BUN was not elevated as I would anticipate with dehydration. Nonetheless, continue hydration and monitor electrolytes closely. Patient received contrast with CT in the emergency room last night which made slow recovery of renal function. Baseline creatinine is about 1.0-1.5 with GFR of 45 earlier this month. Additionally check magnesium following recent diuretic therapy. Continue antibiotics for urinary tract infection. PT/OT consults pending to assess functional status. Hemoglobin down slightly with initial hydration-may require transfusion prior to discharge. Continue warfarin for history atrial fibrillation/AVR. Continue sotalol provided blood pressure is stable. Status discussed with patient's who reports he is more alert this morning than he was yesterday but not yet at baseline. She denies past history of dementia but reports acute confusion has developed in conjunction with illness and dehydration. Full code; patient will return to the care of Dr. Mane at discharge. 09/25/17 Patient's son reports that Neema is about 90% better but still confused-he still seems significantly encephalopathic to me and remains anorexic. Overread of abdominal/pelvic CT from admission reports cirrhotic contour of the liver and fluid filled colon suggesting gastroenteritis-patient had 2 soft or loose stools yesterday but has not had recurrent bowel movements to raise concern. Initial urine sodium/osmolality were both inappropriately high compared to serum osmolality and sodium; sodium did not improve with hydration started based on clinical suspicion of dehydration and was subsequently discontinued yesterday evening. Continue to monitor with fluid restriction which is basically being self imposed by the patient. Discontinue ceftriaxone-urine culture negative to date. Doses given 09/23 and . Continue to monitor hemoglobin closely. Warfarin on hold-INR elevated with poor oral intake.
[2017-09-25] MEDS: CEFTRIAXONE 1 G in NS 100 ML IV SCH (20:18)
[2017-09-25] MEDS: TAMSULOSIN 0.4 MG CAPSULE PO SCH (20:19)
[2017-09-25] MEDS: SODIUM CHLORIDE 3% 500 ML IV SCH (20:21)
[2017-09-26] MEDS: FINASTERIDE 5 MG TABLET PO SCH (09:28)
[2017-09-26] MEDS: SOTALOL 80 MG TABLET PO SCH ×2 (09:28→21:09)
[2017-09-26] MEDS: PredniSONE 5 MG TABLET PO SCH (09:30)
[2017-09-26] MEDS: FERROUS SULFATE 324 MG TABLET PO SCH (09:30)
[2017-09-26] MEDS: POLYETHYL GLYCOL 3350 17gm PACKET PO SCH (09:30)
--- NOTE | 2017-09-26 09:33 | Pharmacy Consult ---
Pharmacy Consult-Warfarin - Laboratory Information 09/24/17 09/24/17 09/25/17 04:30 12:14 04:08 Hgb 7.6 L 7.4 L Hct 23.8 L 23.4 L INR Albumin 3.7 09/25/17 09/26/17 09/26/17 04:08 04:23 04:23 Hgb 7.8 L Hct 24.2 L INR 3.38 H 5.00 H* Albumin - Consult Information 81 y.o. Male with history of a. fib and chronic anticoagulation with warfarin. Home Warfarin dose: 5 mg po daily. goal INR = 2.0 to 3.0. date INR dose 09/24 2.45 (on 09/23 admission) 5 mg 09/25 3.38 no warfarin given 09/26 5.0 plan: no warfarin dose INR is supratherapeutic at 5.0 and has increased significantly since INR of 2.45 on admission. Nursing reports no signs of active bleeding. Will give no warfarin dose today. Potential drug-drug interaction exists between Ceftriaxone and Warfarin, this has the potential to increase INR and risk of bleeding. Last Ceftriaxone dose given on 09/25/17. This interaction is likely contributing to the high INR value. Pharmacy will monitor and dose. Thank you, Silvia Skinner,
--- NOTE | 2017-09-26 10:05 | CT Scan Report ---
Indication: confusion PROCEDURE: CT head/brain wo con: Encounter: Initial Comparison: June 13, 2017 and August 24, 2013 Technique: Axial CT images through the head were performed without contrast. Iterative Reconstruction dose reducing technique was utilized. 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 No acute intracranial hemorrhage. Mild generalized atrophy and scattered microvascular ischemic white matter disease. No territorial stroke. Ventricles are stable. No calvarial fracture. Impression: Stable appearance of the large sellar area mass. No acute hemorrhage or obvious stroke. There is a preliminary report by virtual radiologic. .
--- NOTE | 2017-09-26 10:42 | Progress Note ---
- Date 09/26/17 Subjective: Neema was seen while still in bed, before rhexis. He was sleepy, but was able to answer a few questions. He kept his eyes closed for most of the assessment. He denied any abdominal pain. However, he agreed that his appetite has not been well. He denies any vomiting. He denied feeling short of breath or having any chest pain. During exam, he frequently pulled his blankets up to his chin, and winced with abdominal palpation. Objective Vital signs: Temperature 96.9 F 09/26/17 08:00 Pulse Rate 62 09/26/17 09:28 Respiratory Rate 16 09/26/17 08:00 Blood Pressure 129/60 09/26/17 09:25 Pulse Oximetry 96 09/26/17 08:00 Height/Weight/BMI: Height 1.75 m Weight 62.9 kg Body Mass Index 20.1 - Constitutional Present: no acute distress, thin - Routine HEENT Exam Head: Present: normocephalic Eye: Absent: conjunctival icterus, scleral injection - Routine Respiratory Exam Present: CTA bilaterally - Routine Cardiovascular Exam Present: RRR, S1, S2 - Routine Abdominal Exam Present: soft, normoactive bowel sounds, tenderness (diffuse tenderness - pt lifted up covers during exam so exam was limited) - Routine Extremities Exam Present: no edema, pulses intact - Routine Skin Exam Present: intact, dry, warm - Routine Neurological Exam Present: alert, normal speech - Routine Psychiatric Exam Present: cooperative Results - Labs CBC & Chem 7: 09/26/17 04:23 09/26/17 12:02 Assessment and Plan (1) Encephalopathy acute Current visit: No Status: Acute (2) Urinary tract infection Current visit: Yes Status: Acute (3) Hyponatremia Current visit: Yes Status: Acute Assessment and Plan: Assessment: Acute encephalopathy Generalized weakness Hyponatremia Urinary tract infection - ruled out. Ceftriaxone x2 days. Acute kidney injury CKD Stage 3 Aortic valve replacement Atrial fibrillation Bladder tumor/malignancy-diagnosis not known by patient yet Pituitary macroadenoma BPH Anorexia Generalized abdominal discomfort Plan: WBC/hgb persistently low - hx of leukopenia and anemia and recent dx of bladder cancer. Encephalopathy persists - communication and exam were limited this am. Na improved slightly to 131; started on hypertonic saline last evening. INR increased to 5.0 despite Coumadin being on hold. Poor oral intake. DVT Prophylaxis: Coumadin Resuscitation Status: Full Code - Physician Narrative Physician: Dona Gimenez MD Narrative: Date: 09/26/17 Time: 9678 I have independently evaluated and examined this patient. I reviewed the chart, the patient's history, and the ACID PUMP OPERATOR/PA's documented findings as above. We discussed and formulated the assessment and plan as above with additions as below: Neema was seen just before noon and was resting in bed as described above. However he awoke easily to voice and responded more appropriately than earlier days looking directly at me. He asked for something to drink and wanted to know when lunch would be here. He denied nausea but complained of loose stools. He denied lightheadedness or dyspnea. I reevaluated him 20-30 minutes later and he was eating lunch without difficulty and nursing reports that he ate about 75% of his lunch tray. Patient's answers were vague at times but he was much more interactive today than he has been since hospitalization. Patient reposition himself in bed without difficulty and had purposeful movements. Respirations nonlabored, good airflow, breath sounds clear Regular rhythm No lower extremity edema Repeat urine osmolality pending; calculated serum osmolality is 15 mOsm per kilogram lower than measured serum osmolality; serum sodium on admission down 20 points from early August when he had his TURP. ? 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 Clinically patient improving with hypertonic saline which is indicated treatment for above. Continue low-volume 3% saline. Recheck sodium and measure serum osmolality in the morning. Check serum ammonia level in addition to other labs due to question of underlying cirrhosis. Nausea improved and lunch suggests appetite returning. GI symptoms reported as initial symptoms in post-TURP syndrome. I will attempt to contact the OR to clarify what irrigating solution is used for TURPs but OR closed today. Surgical nurses report some urologist use saline with glycine for continuous bladder irrigation post procedure. >45 min spent in pt care, 15 min at bedside and in d/w pt and son. Majority of time researching post-TURP syndrome. Hospital Course Summary Disclaimer: The visit summary below is not to be considered part of the above Progress Note. Hospital Course: 09/23/17-09/24/17 Mr. Valle was admitted with acute encephalopathy and generalized weakness in conjunction with acute kidney injury, hyponatremia, and urinary tract infection. Bumex was recently initiated for lower extremity edema and dehydration seems likely however his weight is up from prior admission in June and only down 2 kg from earlier this month. BUN was not elevated as I would anticipate with dehydration. Nonetheless, continue hydration and monitor electrolytes closely. Patient received contrast with CT in the emergency room last night which made slow recovery of renal function. Baseline creatinine is about 1.0-1.5 with GFR of 45 earlier this month. Additionally check magnesium following recent diuretic therapy. Continue antibiotics for urinary tract infection. PT/OT consults pending to assess functional status. Hemoglobin down slightly with initial hydration-may require transfusion prior to discharge. Continue warfarin for history atrial fibrillation/AVR. Continue sotalol provided blood pressure is stable. Status discussed with patient's who reports he is more alert this morning than he was yesterday but not yet at baseline. She denies past history of dementia but reports acute confusion has developed in conjunction with illness and dehydration. Full code; patient will return to the care of Dr. Mane at discharge. 09/25/17 Patient's son reports that Neema is about 90% better but still confused-he still seems significantly encephalopathic to me and remains anorexic. Overread of abdominal/pelvic CT from admission reports cirrhotic contour of the liver and fluid filled colon suggesting gastroenteritis-patient had 2 soft or loose stools yesterday but has not had recurrent bowel movements to raise concern. Initial urine sodium/osmolality were both inappropriately high compared to serum osmolality and sodium; sodium did not improve with hydration started based on clinical suspicion of dehydration and was subsequently discontinued yesterday evening. Continue to monitor with fluid restriction which is basically being self imposed by the patient. Discontinue ceftriaxone-urine culture negative to date. Doses given 09/23 and . Continue to monitor hemoglobin closely. Warfarin on hold-INR elevated with poor oral intake. 09/26/17 WBC/hgb persistently low - hx of leukopenia and anemia and recent dx of bladder cancer. Encephalopathy persists - communication and exam were limited this am. Na improved slightly to 131; started on hypertonic saline last evening. INR increased to 5.0 despite Coumadin being on hold. Poor oral intake.
[2017-09-26] MEDS: TAMSULOSIN 0.4 MG CAPSULE PO SCH (21:08)
[2017-09-27] MEDS: SODIUM CHLORIDE 3% 500 ML IV SCH (00:26)
[2017-09-27] MEDS: POLYETHYL GLYCOL 3350 17gm PACKET PO SCH (08:15)
[2017-09-27] MEDS: PredniSONE 5 MG TABLET PO SCH (08:15)
[2017-09-27] MEDS: FERROUS SULFATE 324 MG TABLET PO SCH (08:15)
[2017-09-27] MEDS: FINASTERIDE 5 MG TABLET PO SCH (08:15)
[2017-09-27] MEDS: SOTALOL 80 MG TABLET PO SCH ×2 (08:16→21:05)
--- NOTE | 2017-09-27 08:18 | XRay Report ---
INDICATION: somnolence, bladder cancer PROCEDURE: CHEST 2-VIEWS UPRIGHT (PA & LAT) Encounter: Initial COMPARISON: June 15, 2017 Findings: The lungs are stable in appearance without new focal airspace consolidation. There is no pleural effusion or pneumothorax. The heart size, pulmonary vascularity and mediastinal contours are unchanged. Left pacemaker. Prior CABG. IMPRESSION: Stable appearance of the chest without acute cardiopulmonary disease. .
--- NOTE | 2017-09-27 09:12 | Progress Note ---
- Date 09/27/17 Subjective: Neema was seen after breakfast - he ate all of it except for his Cheerios. He states that he feels good today and wants to go home. He was oriented to person , date of , location, month, but was incorrect on the year (his responses were 1987, 1927, then with prompting he said 2007). He denied having any weakness or lightheadedness or SOA when he walked to the bathroom earlier. He asked appropriate questions about his hospitalization and was surprised to hear that his sodium level was low b/c he states that he eats a lot of salt. Objective Vital signs: Temperature 96.2 F L 09/27/17 06:58 Pulse Rate 61 09/27/17 08:16 Respiratory Rate 18 09/27/17 06:58 Blood Pressure 143/71 H 09/27/17 06:58 Pulse Oximetry 98 09/27/17 06:58 Height/Weight/BMI: Height 1.75 m Weight 62.3 kg Body Mass Index 20.1 - Constitutional Present: no acute distress, well nourished, well developed, thin - Routine HEENT Exam Head: Present: normocephalic Eye: Absent: conjunctival icterus, scleral injection ENT: Present: mucous membranes moist, oropharynx clear (mild erythema) - Routine Cardiovascular Exam Present: RRR, S1, S2, click - Routine Abdominal Exam Present: soft, normoactive bowel sounds, non distended, non tender - Routine Extremities Exam Present: edema (trace edema to medial ankles), pulses intact - Routine Musculoskeletal Exam Musculoskeletal: Present: moving extremities well - Routine Skin Exam Present: intact, dry, warm - Routine Neurological Exam Present: alert, moving all extremities, normal speech. Absent: oriented X3 ( oriented to peron, place, month but not year) - Routine Psychiatric Exam Present: normal affect, normal thought process, cooperative Results - Labs CBC & Chem 7: 09/27/17 04:39 09/27/17 12:06 Assessment and Plan (1) Encephalopathy acute Current visit: No Status: Acute (2) Urinary tract infection Current visit: Yes Status: Acute (3) Hyponatremia Current visit: Yes Status: Acute Assessment and Plan: Assessment: Acute encephalopathy Generalized weakness Hyponatremia ? Post-TURP syndrome due to glycerin bladder irrigation with subsequent hyponatremia Urinary tract infection - ruled out. Ceftriaxone x2 days. Acute kidney injury CKD Stage 3 Aortic valve replacement Atrial fibrillation Bladder tumor/malignancy-diagnosis not known by patient yet Pituitary macroadenoma BPH Anorexia Generalized abdominal discomfort Plan: Na improving and returned to normal range this am (136). Per attending, will reassess Na at noon and if stable may DC hypertonic saline. Ammonia level was normal. WBC/hgb persistently low but stable. Encephalopathy much improved. Oriented to person, place, month, but not year. Communicates and interacts well. Oral intake improving though INR continues to increase - up to 5.59 this am. Continue to hold Coumadin. DVT Prophylaxis: SCD's Resuscitation Status: Full Code - Physician Narrative Physician: Dona Gimenez MD Narrative: Date: 09/27/17 Time: 2014 I have independently evaluated and examined this patient. I reviewed the chart, the patient's history, and the IRRIGATION SERVICE TECHNICIAN/PA's documented findings as above. We discussed and formulated the assessment and plan as above with additions as below: Neema wants to go home and reports having an appetite and no nausea. updated and reports that he sounds back to normal when speaking with him on the phone. NAD, regards examiner directly Regular rhythm, S1-S2, abdomen benign, breath sounds clear Sodium is improving progressively to 139-hypertonic saline discontinued. Cortisol at 4 AM-4; he currently is on prednisone however- unsure of indication for prednisone and reports he does not take this chronically due to pituitary adenoma. Monitor sodium off hypertonic saline, if stable anticipate discharge in the next 1-2 days. Discussed bladder irrigation solution with OR nursing-Dr. Carr uses normal saline without with glycine. Hospital Course Summary Disclaimer: The visit summary below is not to be considered part of the above Progress Note. Hospital Course: 09/23/17-09/24/17 Mr. Valle was admitted with acute encephalopathy and generalized weakness in conjunction with acute kidney injury, hyponatremia, and urinary tract infection. Bumex was recently initiated for lower extremity edema and dehydration seems likely however his weight is up from prior admission in June and only down 2 kg from earlier this month. BUN was not elevated as I would anticipate with dehydration. Nonetheless, continue hydration and monitor electrolytes closely. Patient received contrast with CT in the emergency room last night which made slow recovery of renal function. Baseline creatinine is about 1.0-1.5 with GFR of 45 earlier this month. Additionally check magnesium following recent diuretic therapy. Continue antibiotics for urinary tract infection. PT/OT consults pending to assess functional status. Hemoglobin down slightly with initial hydration-may require transfusion prior to discharge. Continue warfarin for history atrial fibrillation/AVR. Continue sotalol provided blood pressure is stable. Status discussed with patient's who reports he is more alert this morning than he was yesterday but not yet at baseline. She denies past history of dementia but reports acute confusion has developed in conjunction with illness and dehydration. Full code; patient will return to the care of Dr. Mane at discharge. 09/25/17 Patient's son reports that Neema is about 90% better but still confused-he still seems significantly encephalopathic to me and remains anorexic. Overread of abdominal/pelvic CT from admission reports cirrhotic contour of the liver and fluid filled colon suggesting gastroenteritis-patient had 2 soft or loose stools yesterday but has not had recurrent bowel movements to raise concern. Initial urine sodium/osmolality were both inappropriately high compared to serum osmolality and sodium; sodium did not improve with hydration started based on clinical suspicion of dehydration and was subsequently discontinued yesterday evening. Continue to monitor with fluid restriction which is basically being self imposed by the patient. Discontinue ceftriaxone-urine culture negative to date. Doses given 09/23 and . Continue to monitor hemoglobin closely. Warfarin on hold-INR elevated with poor oral intake. 09/26/17 WBC/hgb persistently low - hx of leukopenia and anemia and recent dx of bladder cancer. Encephalopathy persists - communication and exam were limited this am. Na improved slightly to 131; started on hypertonic saline last evening. INR increased to 5.0 despite Coumadin being on hold. Poor oral intake. 09/27/17 Na improving and returned to normal range this am (136). Per attending, will reassess Na at noon and if stable may DC hypertonic saline. Ammonia level was normal. WBC/hgb persistently low but stable. Encephalopathy much improved. Oriented to person, place, month, but not year. Communicates and interacts well. Oral intake improving though INR continues to increase - up to 5.59 this am. Continue to hold Coumadin.
[2017-09-27 09:44] VITALS: BMI 20.2
--- NOTE | 2017-09-27 10:32 | Pharmacy Consult ---
Pharmacy Consult-Warfarin - Laboratory Information 09/24/17 09/24/17 09/25/17 04:30 12:14 04:08 Hgb 7.6 L 7.4 L Hct 23.8 L 23.4 L INR Albumin 3.7 09/25/17 09/26/17 09/26/17 04:08 04:23 04:23 Hgb 7.8 L Hct 24.2 L INR 3.38 H 5.00 H* Albumin 09/27/17 09/27/17 04:39 04:39 Hgb 7.9 L Hct 24.1 L INR 5.59 H* Albumin - Consult Information COUMADIN CONSULT (Recurring): 81 YR OLD 5'9" 62.3 kg male patient admitted for Hyponatremia and UTI. He is on warfarin for A Fib. Home dose is 5 mg daily. He has been on Ceftriaxone 1 gm IV q24hrs x 3 days. Ceftriaxone last dose was on 09/25. Date INR Dose 09/23 2.45 Admit INR 09/24 --- 5 MG 09/25 3.38 No Warfarin 09/26 5.0 No Warfarin 09/27 5.59 No Warfarin INR has continued to climb. Ceftriaxone can cause the INR to increase. The last dose was given on 09/25/17. The INR should start to go down now that the Ceftriaxone has been discontinued. Currently Nursing does not report any clinical signs of bleeding. If INR continues to climb tomorrow then a small dose of oral Vitamin K will be given. Thank you. Shwetha Aponte, PharmD
[2017-09-27] MEDS: TAMSULOSIN 0.4 MG CAPSULE PO SCH (21:05)
[2017-09-28 04:38] VITALS: PULSE 60
--- NOTE | 2017-09-28 07:21 | Pharmacy Consult ---
Pharmacy Consult-Warfarin - Laboratory Information 09/24/17 09/24/17 09/25/17 04:30 12:14 04:08 Hgb 7.6 L 7.4 L Hct 23.8 L 23.4 L INR Albumin 3.7 09/25/17 09/26/17 09/26/17 04:08 04:23 04:23 Hgb 7.8 L Hct 24.2 L INR 3.38 H 5.00 H* Albumin 09/27/17 09/27/17 09/28/17 04:39 04:39 05:00 Hgb 7.9 L Hct 24.1 L INR 5.59 H* 4.60 H* Albumin - Consult Information We will not give warfarin today however the INR is decreasing so we will likely be dosing warfarin in the next couple of days. Thanks
[2017-09-28 07:51] VITALS: BP 116/64; RESP 16; TEMP 97.2; O2SAT 100
[2017-09-28] MEDS ORDERED: FERROUS SULFATE 324 MG TABLET PO SCH (08:00)
[2017-09-28] MEDS: PredniSONE 5 MG TABLET PO SCH (09:14)
[2017-09-28] MEDS: SALINE FLUSH 10ml SYRINGE IVF PRN (09:14)
[2017-09-28] MEDS: FINASTERIDE 5 MG TABLET PO SCH (09:14)
[2017-09-28] MEDS: SOTALOL 80 MG TABLET PO SCH (09:14)
[2017-09-28] MEDS: POLYETHYL GLYCOL 3350 17gm PACKET PO SCH (09:15)
--- NOTE | 2017-09-28 10:52 | Progress Note ---
- Date 09/28/17 Subjective: F/U: Encephalopathy, hyponatremia Doing very well today. Eating well-no ab pain or nausea. Strength improved; able to ambulate without difficulty. Not feeling dizzy/unsteady when up. Not having confusion. Urinating well. Bowels stable. Breathing well. No chest pain. Feels up to going home. Objective Vital signs: Temperature 97.2 F 09/28/17 07:49 Pulse Rate 60 09/28/17 09:14 Respiratory Rate 16 09/28/17 07:49 Blood Pressure 116/64 09/28/17 07:51 Pulse Oximetry 100 09/28/17 07:51 Height/Weight/BMI: Height 1.75 m Weight 61.6 kg Body Mass Index 20.2 - Constitutional Present: well nourished, well developed, average body habitus, cooperative - Routine HEENT Exam Head: Present: normocephalic, atraumatic Eye: Present: EOMI, PERRL ENT: Present: mucous membranes moist - Routine Respiratory Exam Present: CTA bilaterally. Absent: rales, respiratory distress, rhonchi, stridor , wheezes, crackles - Routine Cardiovascular Exam Present: RRR, click - Routine Abdominal Exam Present: soft, normoactive bowel sounds, non distended, non tender. Absent: guarding - Routine Extremities Exam Present: no edema, pulses intact. Absent: cyanosis, clubbing - Routine Skin Exam Present: dry, warm - Routine Neurological Exam Present: alert, oriented X3, CN II-XII intact, moving all extremities, vision grossly intact, hearing grossly intact, normal speech. Absent: motor deficit, altered mental status - Routine Psychiatric Exam Present: normal affect, cooperative Results - Labs CBC & Chem 7: 09/27/17 04:39 09/28/17 04:24 Assessment and Plan (1) Encephalopathy acute Current visit: No Status: Acute (2) Urinary tract infection Current visit: Yes Status: Acute (3) Hyponatremia Current visit: Yes Status: Acute Assessment and Plan: Assessment: Acute encephalopathy Hyponatremia ? Post-TURP syndrome due to glycerin bladder irrigation with subsequent hyponatremia Generalized weakness Urinary tract infection - ruled out. Ceftriaxone x2 days. Acute kidney injury CKD Stage 3 Aortic valve replacement Atrial fibrillation Bladder tumor/malignancy-diagnosis not known by patient yet Pituitary macroadenoma BPH Anorexia Generalized abdominal discomfort Plan: Sodium remains normal - 140 this am. Encephalopathy resolved. Eating/drinking well. Ambulating well. INR elevated at 4.6 -- was 5.59 yesterday. Will hold Coumadin today. Could give 2.5mg tomorrow then return to 5mg daily. Medically stable for discharge to home. Will stop Bumex-edema resolved. Continue with chronic home medications - Coumadin 2.5mg tomorrow, then 5mg daily. Will follow up with Dr Mane in 1 week Recommend rechecking BMP at that time due hyponatremia, and INR due to Coumadin use/Mechanical valve. See orders for details. Case discussed with CM. Time spent with patient care and discharge greater than 30 minutes. DVT Prophylaxis: Coumadin Resuscitation Status: Full Code - Physician Narrative Physician: Russ Quinn MD Narrative: Date: 09/28/17 Time: 1049 Hospital Course Summary Disclaimer: The visit summary below is not to be considered part of the above Progress Note. Hospital Course: 09/23/17-09/24/17 Mr. Valle was admitted with acute encephalopathy and generalized weakness in conjunction with acute kidney injury, hyponatremia, and urinary tract infection. Bumex was recently initiated for lower extremity edema and dehydration seems likely however his weight is up from prior admission in June and only down 2 kg from earlier this month. BUN was not elevated as I would anticipate with dehydration. Nonetheless, continue hydration and monitor electrolytes closely. Patient received contrast with CT in the emergency room last night which made slow recovery of renal function. Baseline creatinine is about 1.0-1.5 with GFR of 45 earlier this month. Additionally check magnesium following recent diuretic therapy. Continue antibiotics for urinary tract infection. PT/OT consults pending to assess functional status. Hemoglobin down slightly with initial hydration-may require transfusion prior to discharge. Continue warfarin for history atrial fibrillation/AVR. Continue sotalol provided blood pressure is stable. Status discussed with patient's who reports he is more alert this morning than he was yesterday but not yet at baseline. She denies past history of dementia but reports acute confusion has developed in conjunction with illness and dehydration. Full code; patient will return to the care of Dr. Mane at discharge. 09/25/17 Patient's son reports that Neema is about 90% better but still confused-he still seems significantly encephalopathic to me and remains anorexic. Overread of abdominal/pelvic CT from admission reports cirrhotic contour of the liver and fluid filled colon suggesting gastroenteritis-patient had 2 soft or loose stools yesterday but has not had recurrent bowel movements to raise concern. Initial urine sodium/osmolality were both inappropriately high compared to serum osmolality and sodium; sodium did not improve with hydration started based on clinical suspicion of dehydration and was subsequently discontinued yesterday evening. Continue to monitor with fluid restriction which is basically being self imposed by the patient. Discontinue ceftriaxone-urine culture negative to date. Doses given 09/23 and . Continue to monitor hemoglobin closely. Warfarin on hold-INR elevated with poor oral intake. 09/26/17 WBC/hgb persistently low - hx of leukopenia and anemia and recent dx of bladder cancer. Encephalopathy persists - communication and exam were limited this am. Na improved slightly to 131; started on hypertonic saline last evening. INR increased to 5.0 despite Coumadin being on hold. Poor oral intake. 09/27/17 Na improving and returned to normal range this am (136). Per attending, will reassess Na at noon and if stable may DC hypertonic saline. Ammonia level was normal. WBC/hgb persistently low but stable. Encephalopathy much improved. Oriented to person, place, month, but not year. Communicates and interacts well. Oral intake improving though INR continues to increase - up to 5.59 this am. Continue to hold Coumadin. 09/28/17 Sodium remains normal - 140 this am. Encephalopathy resolved. Eating/drinking well. Ambulating well. INR elevated at 4.6 -- was 5.59 yesterday. Will hold Coumadin today. Could give 2.5mg tomorrow then return to 5mg daily. Medically stable for discharge to home. Will stop Bumex-edema resolved. Continue with chronic home medications - Coumadin 2.5mg tomorrow, then 5mg daily. Will follow up with Dr Mane in 1 week Recommend rechecking BMP at that time due hyponatremia, and INR due to Coumadin use/Mechanical valve. See orders for details.
--- NOTE | 2017-09-28 11:10 | Discharge Summary ---
Discharge Information Date of admission: 09/23/17 19:16 Anticipated date of discharge: 09/28/17 Attending Physician: Russ Quinn MD Primary care physician: Pedro Mane II, MD - Discharge Diagnosis (1) Encephalopathy acute Status: Acute (2) Urinary tract infection Status: Acute (3) Hyponatremia Status: Acute Discharge diagnosis Acute encephalopathy Associated conditions and complications Hyponatremia ? Post-TURP syndrome due to glycerin bladder irrigation with subsequent hyponatremia; resolved Generalized weakness Urinary tract infection - ruled out. Ceftriaxone x2 days. Acute kidney injury CKD Stage 3 Aortic valve replacement Atrial fibrillation Bladder tumor/malignancy-diagnosis not known by patient yet Pituitary macroadenoma BPH Anorexia Generalized abdominal discomfort - Laboratory Labs: Admit Lab 09/23/17 17:40 WBC 4.0 L Hgb 8.1 L Hct 25.0 L MCV 77.4 L Plt Count 192 D Neut % (Auto) 42.8 Lymph % (Auto) 42.1 Fisher % (Auto) 8.8 Eos % (Auto) 5.5 H Baso % (Auto) 0.5 Admit Lab 09/23/17 17:40 Sodium 127 L Potassium 4.4 Chloride 94 L Carbon Dioxide 22 Anion Gap 11 BUN 12.0 Creatinine 1.8 H GFR Calculation 37 BUN/Creatinine Ratio 7 Glucose 91 Calculated Osmolality 245 L Calcium 9.0 Total Bilirubin 0.80 AST 34 ALT 18 Alkaline Phosphatase 182 H Total Protein 6.9 Albumin 3.8 Globulin 3.1 Albumin/Globulin Ratio 1.2 Admit Lab 09/23/17 17:39 INR 2.45 H Discharge INR 09/28/17 05:00 INR 4.60 H* 09/27/17 04:39 09/28/17 04:24 - Radiology Radiology: Date of Exam: 09/23/17 Type of Exam: CT abdomen pelvis w con Findings: Fibrosis in both lung bases. Fatty infiltration of the liver with a slightly nodular contour suggesting cirrhosis. No enhancing liver mass or bile duct dilatation. The gallbladder, spleen, pancreas and adrenal glands are normal. Trace ascites. The kidneys are normal. No abdominal or pelvic adenopathy. Scattered atherosclerotic plaque. Garcia catheter in the thick-walled bladder. Fluid in the colon diffusely. No abnormally dilated small bowel loops seen. Bone windows show degenerative change in the spine. Impression: Evidence of a gastroenteritis. --------- Date of Exam: 09/25/17 Type of Exam: CT head/brain wo con FINDINGS: Chronic sellar mass is again seen without significant interval change. No acute intracranial hemorrhage. Mild generalized atrophy and scattered microvascular ischemic white matter disease. No territorial stroke. Ventricles are stable. No calvarial fracture. Impression: Stable appearance of the large sellar area mass. No acute hemorrhage or obvious stroke. --------- Date of Exam: 09/26/17 Type of Exam: XR chest 2V Findings: The lungs are stable in appearance without new focal airspace consolidation. There is no pleural effusion or pneumothorax. The heart size, pulmonary vascularity and mediastinal contours are unchanged. Left pacemaker. Prior CABG. IMPRESSION: Stable appearance of the chest without acute cardiopulmonary disease. History of Present Illness HPI: Mr. Valle is a 81 y/o male known prior admissions. He presented to the emergency room yesterday evening with his and son reported urinary discomfort for several days in conjunction with nausea, vomiting, and generalized weakness. The patient underwent cystoscopy with resection of bladder tumor on 09/07/17 and since that time his appetite has been poor and in the emergency room he reported vomiting every time he eats something. This morning he describes some mild soreness in his abdomen and that he has " problems going on" but could not specify what kind of problems he was having. He reported having some mild nausea and occasional emesis but minimized all symptoms. He was able to tell me the date of his recent surgery and that he scheduled for follow-up with Dr. Carr on 09/29 for results of surgery. He denied lightheadedness, fever, chills, diarrhea, change in bowel function, or hematemesis. He reported that he is not hungry or thirsty and reported that his last bowel movement was "not long ago". Family is not at bedside this morning but I spoke with his by phone and she indicated he became increasingly confused over the past 1-2 days and that this is happened previously with dehydration. In the emergency room CT abd/pelvis was negative for acute pathology, pyuria suggested urinary tract infection, and sodium was depressed. Patient was recently started on diuretic for lower extremity edema per history of the patient's . The patient reports he's had a Garcia catheter in since surgery earlier this month but his reports that that is untrue and catheter was replaced last night. For complete details of the H&P, refer to that document. Objective Vital signs: Temperature 97.2 F 09/28/17 07:49 Pulse Rate 60 09/28/17 09:14 Respiratory Rate 16 09/28/17 07:49 Blood Pressure 116/64 09/28/17 07:51 Pulse Oximetry 100 09/28/17 07:51 Height/Weight/BMI: Height 1.75 m Weight 61.6 kg Body Mass Index 20.2 Hospital Course This is a general summary of the patient's hospital course. For more details refer to the complete medical record. Hospital course: 09/23/17-09/24/17 Mr. Valle was admitted with acute encephalopathy and generalized weakness in conjunction with acute kidney injury, hyponatremia, and urinary tract infection. Bumex was recently initiated for lower extremity edema and dehydration seems likely however his weight is up from prior admission in June and only down 2 kg from earlier this month. BUN was not elevated as I would anticipate with dehydration. Nonetheless, continue hydration and monitor electrolytes closely. Patient received contrast with CT in the emergency room last night which made slow recovery of renal function. Baseline creatinine is about 1.0-1.5 with GFR of 45 earlier this month. Additionally check magnesium following recent diuretic therapy. Continue antibiotics for urinary tract infection. PT/OT consults pending to assess functional status. Hemoglobin down slightly with initial hydration-may require transfusion prior to discharge. Continue warfarin for history atrial fibrillation/AVR. Continue sotalol provided blood pressure is stable. Status discussed with patient's who reports he is more alert this morning than he was yesterday but not yet at baseline. She denies past history of dementia but reports acute confusion has developed in conjunction with illness and dehydration. Full code; patient will return to the care of Dr. Mane at discharge. 09/25/17 Patient's son reports that Neema is about 90% better but still confused-he still seems significantly encephalopathic to me and remains anorexic. Overread of abdominal/pelvic CT from admission reports cirrhotic contour of the liver and fluid filled colon suggesting gastroenteritis-patient had 2 soft or loose stools yesterday but has not had recurrent bowel movements to raise concern. Initial urine sodium/osmolality were both inappropriately high compared to serum osmolality and sodium; sodium did not improve with hydration started based on clinical suspicion of dehydration and was subsequently discontinued yesterday evening. Continue to monitor with fluid restriction which is basically being self imposed by the patient. Discontinue ceftriaxone-urine culture negative to date. Doses given 09/23 and . Continue to monitor hemoglobin closely. Warfarin on hold-INR elevated with poor oral intake. 09/26/17 WBC/hgb persistently low - hx of leukopenia and anemia and recent dx of bladder cancer. Encephalopathy persists - communication and exam were limited this am. Na improved slightly to 131; started on hypertonic saline last evening. INR increased to 5.0 despite Coumadin being on hold. Poor oral intake. 09/27/17 Na improving and returned to normal range this am (136). Per attending, will reassess Na at noon and if stable may DC hypertonic saline. Ammonia level was normal. WBC/hgb persistently low but stable. Encephalopathy much improved. Oriented to person, place, month, but not year. Communicates and interacts well. Oral intake improving though INR continues to increase - up to 5.59 this am. Continue to hold Coumadin. 09/28/17 Sodium remains normal - 140 this am. Encephalopathy resolved. Eating/drinking well. Ambulating well. INR elevated at 4.6 -- was 5.59 yesterday. Will hold Coumadin today. Could give 2.5mg tomorrow then return to 5mg daily. Medically stable for discharge to home. Will stop Bumex-edema resolved. Continue with chronic home medications - Coumadin 2.5mg tomorrow, then 5mg daily. Will follow up with Dr Mane in 1 week Recommend rechecking BMP at that time due hyponatremia, and INR due to Coumadin use/Mechanical valve. See orders for details. Time spent with patient: discharge greater than 30 minutes Resuscitation Status: Full Code Discharge Plan - Discharge Disposition Discharge Date: 09/28/17 Disposition: 01 Discharged Home, Self-Care *Condition: Stable Reason For Visit (Visit label in EMR): hyponatremia,UTI - Discharge Medications *Discharge Medications: Continue Sotalol [Betapace] 80 mg PO BID Ferrous Sulfate [Iron] 325 mg PO DAILY Tamsulosin [Flomax] 0.4 mg PO HS Finasteride [Proscar] 5 mg PO DAILY Warfarin Sodium 5 mg PO NOON PredniSONE [Deltasone 5 mg] 5 mg PO DAILY Discontinued Bumetanide Tab [Bumex 1 mg Tab] 1 mg PO DAILY - Discharge Packet/Instructions *Diet: Regular *Activity: As tolerated *Pain Management/Treatment: Continue prior home pain medications *Wound Care: n/a Additional Instructions: Do not take Coumadin (warfarin) today. May use 1/2 tablet of Coumadin tomorrow (09/29). Return to 1 tablet of Coumadin on 09/30/17. Stop Bumex (bumetadine). *Expected Signs/Symptoms: Continued stablility in mental status/though process. Improvement of appetite. *Notify Physician if: Temp >100.4. Problems with excessive bleeding. Increasing confusion. *During Business Hours Contact: Dr Mane *After Business Hours Contact: Call [facility] and have Dr Mane contacted. *Pending Lab/Results: No Pending Lab - Referrals/Follow Up *Referrals/Follow Up: Pedro Mane II, MD [Primary Care Provider] - 1 Week (Hospital follow up for encephalopathy/hyponatremai. Recommed BMP and INR at that time. ) - Patient Handouts Patient Handouts: [facility] [place] [facility] Coumadin Vitamin K, Warfarin (By mouth), Urinary Tract Infection in Men (GEN), Hyponatremia (GEN) - Dismissal Complete Discharge Instructions are:: Complete Physician Narrative - Narrative Physician: Russ Quinn MD Attestation Narrative: Date: 09/28/17 Time: 1107 I have independently interviewed and examined patient prior to discharge. See my progress note for details. Medically stable for discharge to home.
== END 2017-09-28 12:15 | disposition home or self-care (01) | DRG 71 ==
LOC: ED 16:20 → EDHOLD 19:16 → SUATTDRO 19:16 → MED 19:44
PROVIDERS: ADMIT Emergency Medicine; ATTEND Hospitalist

== ENCOUNTER 2017-10-22 08:45 | Inpatient (IN) ==
--- NOTE | 2017-10-22 09:22 | Emergency Department Report ---
Nausea/Vomiting/Diarrhea HPI - General Chief complaint: Nausea/Vomiting/Diarrhea Stated complaint: nausea,not eating Time Seen by Provider: 10/22/17 09:21 Source: patient Mode of arrival: ambulatory Limitations: no limitations - History of Present Illness HPI Narrative: Patient is an 82-year-old male presents emergency room for evaluation of nausea and vomiting. Patient was hospitalized less than a month ago for one week for nausea vomiting hyponatremia. Patient also recently had a resection of his bladder for questionable cancer. Patient states he was told by Dr. Carr that his bladder tumor was not cancerous. Patient states that he did well at home for about 1 week after being discharged from the hospital on 09/28, however has begun to continue developed nausea. Patient's had emesis 2 this morning doesn' t really feel like eating. Patient's had no fevers no chills states his urine is eneida in color not foul-smelling no reduction in amount. Patient decided this morning to present to the ER after emesis 2. Patient is having no abdominal pain. MD complaint: nausea, vomiting - Related Data Home Medications Medication Instructions Recorded Confirmed Ferrous Sulfate [Iron] 325 mg PO DAILY 06/13/17 10/22/17 Sotalol [Betapace] 80 mg PO BID 06/13/17 10/22/17 Tamsulosin [Flomax] 0.4 mg PO HS 09/06/17 10/22/17 Finasteride [Proscar] 5 mg PO DAILY 09/23/17 10/22/17 Warfarin Sodium 5 mg PO NOON 09/23/17 10/22/17 Allergies Allergy/AdvReac Type Severity Reaction Status Date / Time No Known Allergies Allergy Verified 10/22/17 09:00 Review of Systems Constitutional: Denies: fever, chills, weakness Eyes: Denies: eye pain, eye discharge ENT: Denies: throat pain, dental pain Cardiovascular: Denies: chest pain, palpitations, dyspnea on exertion Respiratory: Denies: cough, dyspnea, wheezes Gastrointestinal: Reports: nausea, vomiting. Denies: abdominal pain Genitourinary: Denies: dysuria, frequency Neurological: Denies: headache, weakness Psychiatric: Denies: anxiety, depression Endocrine: Denies: fatigue, heat or cold intolerance Hematological/Lymphatic: Denies: easy bleeding, easy bruising Allergic/Immunologic: Denies: facial swelling PFSH Patient Stated Medical History Dementia Yes Cataracts Yes Cardiac Arrhythmia Yes: A.Fib Hypotension Yes Other Cardiology Yes: Hypotension Chronic Obstructive Pulmonary Yes Disease (COPD) Sleep Apnea No Gastroesophageal Reflux Yes Disease Ulcer Yes: HX Hx Benign Prostatic Yes Hyperplasia Other Yes: BLADDER TUMOR,HEMATURIA Anemia Yes Other Hematologic Yes: Warfarin Shingles Yes: HX Clinic Medical History (Last Updated 09/24/17 @ 11:14 by Dona Gimenez MD) Atrial fibrillation (Acute Medical) BPH (benign prostatic hyperplasia) (Acute Medical) Bladder tumor (Acute Medical) resection 09/07/17, Dr. Carr. High-grade urothelial carcinoma. Chronic kidney disease (CKD), stage III (moderate) (Acute Medical) Pacemaker (Acute Medical) Pancytopenia (Acute Medical) Dr. Shafer Pituitary adenoma (Acute Medical) macroadenoma, inoperable. Dr. Ch Medical History Updates: anemia chronic disease-possible aplastic anemia Surgical History: Pacemaker. AVR. Cystoscopy with transurethral resection of bladder tumor 09/07/17-Dr. Carr Family History: Family History (Last Updated 09/24/17 @ 08:28 by Dona Gimenez MD) Father Alzheimer disease Mother Alzheimer disease Family History Updates: unkown at this time - Social History Smoking status: Current some day smoker Packs-years: 30 second hand exposure: No Substance use type: does not use Alcohol intake frequency: former alcohol drinker (his continued many years ago) Housing: house Household members: spouse Current occupational status: retired Current occupation: [employer] Current occupational exposures/hazards: No Does patient use chewing tobacco?: No Current residence: Apartment/Private Home Physical Exam - General General appearance: alert, in no apparent distress - Eye Eye exam: Present: PERRL - ENT ENT exam: Present: normal oropharynx, mucous membranes moist - Neck Neck exam: Present: trachea midline. Absent: tenderness - Chest Chest inspection: Present: symmetric chest wall rise. Absent: tenderness, rash - Respiratory Respiratory exam: Present: normal lung sounds bilaterally. Absent: respiratory distress, wheezes, stridor - Cardiovascular Cardiovascular exam: Present: regular rate, normal rhythm, normal heart sounds - Abdominal Exam Abdominal exam: Present: soft, tenderness (mild epigastric tenderness), normal bowel sounds. Absent: distention - Skin Skin exam: Present: warm, dry - Neurological Exam Neurological exam: Present: alert, oriented X3 - Psychiatric Psychiatric exam: Present: normal affect, normal mood Course Vital Signs Temperature 97.9 F 10/22/17 08:57 Pulse Rate 60 10/22/17 08:57 Respiratory Rate 16 10/22/17 08:57 Blood Pressure 100/55 10/22/17 08:57 Pulse Oximetry 98 10/22/17 08:57 Temperature 97.9 F 10/22/17 08:57 Pulse Rate 60 10/22/17 08:57 Respiratory Rate 16 10/22/17 08:57 Blood Pressure 100/55 10/22/17 08:57 Pulse Oximetry 98 10/22/17 08:57 Nausea/Vomiting/Diarrhea - Differential Diagnosis Likely: traveler's diarrhea, food poisoning, gastroenteritis, drug-induced nausea and vomiting, dehydration - Medical Records Attestation: I reviewed the patient's medical records. - Lab Data Attestation: I reviewed the patient's lab results. Result diagrams: 10/22/17 09:35 10/22/17 09:35 Disposition Clinical Impression: Hyponatremia, Nausea Disposition: 02 To [facility] [place] Acute Care Condition: Stable Prescriptions: No Action Sotalol [Betapace] 80 mg PO BID Ferrous Sulfate [Iron] 325 mg PO DAILY Tamsulosin [Flomax] 0.4 mg PO HS Finasteride [Proscar] 5 mg PO DAILY Warfarin Sodium 5 mg PO NOON Referrals: Pedro Mane II, MD [Primary Care Provider] - Time of Disposition: 10:36 - Seen By: physician
[2017-10-22] MEDS ORDERED: NS 1,000 ML IV ONE (09:24)
[2017-10-22] MEDS ORDERED: METOCLOPRAMIDE 10mg/2ml INJECTION IVP ONE (09:24)
--- OUTSIDE RECORDS SUMMARY | 2017-10-22 09:29 | External Medical Summary ---
[...] Medications Results No Known Results Summary Purpose [employer] Medical Submission
[2017-10-22] MEDS: SALINE FLUSH 10ml SYRINGE IVF PRN (09:42)
[2017-10-22] MEDS ORDERED: WARFARIN - PHARMACY CONSULT MC ONE (11:13)
[2017-10-22] MEDS ORDERED: NS 1,000 ML IV SCH (11:13)
[2017-10-22 11:17] VITALS: BMI 19.4
[2017-10-22] MEDS ORDERED: ACETAMINOPHEN 325 MG TABLET PO PRN (11:42)
[2017-10-22] MEDS ORDERED: BISACODYL 10 MG SUPPOSITORY RECTALLY PRN (11:43)
[2017-10-22] MEDS ORDERED: METOCLOPRAMIDE 10mg/2ml INJECTION IVP PRN (11:43)
--- NOTE | 2017-10-22 11:55 | History & Physical Report ---
History of Present Illness Date: 10/22/17 Chief complaint: Hyponatremia HPI: Mr Valle is a 82 yr old male who is known to the hospitalist services from previous admissions. Today he presented to the emergency room for acute evaluation of nausea and vomiting. He has had nausea for the past 4 days and had episode of vomiting this morning. Further medical workup was performed today in the emergency room. Patient was found to have leukopenia with a white count of 3.9, hemoglobin 8.6, hematocrit 26.1, platelet count 173. INR 1.92. He was found to be significantly diminished at 117, potassium 4.7, chemistry panel otherwise unremarkable, TSH 2.17, lipase 85. Signs are stable. In the emergency room and patient is afebrile. Given his symptomatic hyponatremia. The hospitalist services were contacted and accepted patient for inpatient admission for further evaluation and treatment. It is expected that his stay will be greater than 2 overnights. Alonso was recently hospitalized on 09/23/17 for weakness and hyponatremia. He was discharged on 09/28/17 and reports had been doing well up until the last 3 -4 days. Knee recent fevers, chills, bowel pain. Did undergo resection of bladder tumor greater than 5 centimeters on 09/08/17 under the care of Dr. Carr. 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 Did discuss advance directives patient does wish to be a full code Review of Systems All systems PM: 10-point ROS was reviewed, no additional remarkable complaints except - Gastrointestinal Gastrointestinal: Present: nausea, vomiting Past Medical History Medical History: Medical History (Last Updated 09/24/17 @ 11:14 by Dona Gimenez MD) Atrial fibrillation BPH (benign prostatic hyperplasia) Bladder tumor resection 09/07/17, Dr. Carr. High-grade urothelial carcinoma. Chronic kidney disease (CKD), stage III (moderate) Pacemaker Pancytopenia Dr. Shafer Pituitary adenoma macroadenoma, inoperable. Dr. Ch Medical History Updates: anemia chronic disease-possible aplastic anemia Surgical History: Pacemaker. AVR. Cystoscopy with transurethral resection of malignant bladder tumor - 09/07/17-Dr. Carr Family History: Father Alzheimer disease Mother Alzheimer disease Family History: As Above - Social History Smoking status: Current some day smoker Substance use type: does not use Alcohol intake frequency: former alcohol drinker Housing: house Household members: spouse Current occupational status: retired Social history: PCP-Dr. Pedro Mane Hematology-Dr. Shafer Urology-Dr. Carr Alternate [id number] and sons CODE STATUS-full Medications Home Medications Medication Instructions Recorded Confirmed Type Ferrous Sulfate [Iron] 325 mg PO DAILY 06/13/17 10/22/17 History Sotalol [Betapace] 80 mg PO BID 06/13/17 10/22/17 History Tamsulosin [Flomax] 0.4 mg PO HS 09/06/17 10/22/17 History Finasteride [Proscar] 5 mg PO DAILY 09/23/17 10/22/17 History Warfarin Sodium 5 mg PO NOON 09/23/17 10/22/17 History Allergies Allergy/AdvReac Type Severity Reaction Status Date / Time No Known Allergies Allergy Verified 10/22/17 09:00 Exam Vital Signs: Temperature 96.8 F 10/22/17 11:13 Pulse Rate 60 10/22/17 11:13 Respiratory Rate 16 10/22/17 11:13 Blood Pressure 122/66 10/22/17 11:13 Pulse Oximetry 100 10/22/17 11:13 Height/Weight/BMI: Height 1.75 m Weight 59.8 kg Body Mass Index 19.4 - Constitutional Present: no acute distress, well nourished, well developed - Routine HEENT Exam Eye: Present: EOMI ENT: Present: mucous membranes moist, dentition normal - Routine Respiratory Exam Present: CTA bilaterally. Absent: wheezes - Routine Cardiovascular Exam Present: RRR, S1, S2. Absent: murmur - Routine Abdominal Exam Present: soft, normoactive bowel sounds, non distended. Absent: tenderness - Routine Extremities Exam Present: pulses intact - Routine Skin Exam Present: intact, dry, warm - Routine Neurological Exam Present: alert, oriented X3, CN II-XII intact, moving all extremities - Routine Psychiatric Exam Present: normal affect, cooperative Results - Labs CBC & Chem 7: 10/22/17 09:35 10/22/17 13:46 Assessment and Plan (1) Hyponatremia Current visit: Yes Status: Acute Assessment and Plan: Impression Hyponatremia- POA- 117 Nausea and vomiting Bladder malignancy CKD-3 Aortic valve replacement- Chronic anticoagulation Atrial fibrillation Pituitary macroadenoma BPH Plan Admit patient as inpatient status under the care of Dr Quinn for Hyponatremia, N/V Obtain urine creatinine and urine sodium to evaluate FENA (Fraction excretion of sodium) Monitor on cardiac telemetry. Obtain urinalysis to rule out urinary tract infection Recheck sodium at 1400 today and continue to follow serial levels Was given 1 liter NS in Er. Continue NS at 75 mL per hour for gentle hydration. Patient may have Reglan as needed for nausea, encourage full liquid diet only and advance as tolerated. SCDs to bilateral lower extremity for DVT prophylaxis. Pharmacy consult to follow INR and Coumadin dosing Given hx of AVF Once more medical stable will consult PT/OT Does wish to be a full code and this orders written Will discuss further orders and plan of care with attending, Dr. Quinn At time of discharge medical care will return to primary care provider, Dr Mane DVT Prophylaxis: SCD's, Coumadin Resuscitation Status: Full Code - Time spent with patient Time with patient PN: 35 minutes - Physician Narrative Physician: Russ Quinn MD Narrative: Date: 10/22/17 Time: 1409 Have independently interviewed and examined pt. Chart reviewed. Case discussed with ED physician and my PRESIDENT[employer]. Care plan developed with my supervision; agree with above. Presents to ED secondary to nausea. Notes nausea over the past [address] decreased due to nausea; not able to eat/drink well. No diarrhea or constipation-feels bowels stable. Not noting [place] or dizziness. No weakness; denies feeling dizzy or unsteady with positional changes. Breathing well without SOA cough/congestion. No chest pressure/pain or palpitations. Urinating well. No f/c. Lungs: decreased, no distress CV: regular with click AB: soft nt/nd EXT: thin , no edema MSE: awake alert Plan: With significant hyponatremia will place patient in inpatient admission status to gradually correct sodium. IVF of NS at 75cc/hr. Recheck sodium level frequently. TELE monitoring. With potassium high normal, potential mineralocorticoid deficiency-start Florinef 0.1mg daily. Can continue home medications. Control nausea. Full liquid diet, increasing as able. FULL code per his requests. Care to return to Dr Mane at time of discharge from [facility]. Hospital Course Summary Disclaimer: The visit summary below is not to be considered part of the above Progress Note. Hospital Course: 10/22/17 Admit patient as inpatient status under the care of Dr Quinn for Hyponatremia, N/V. Obtain urine creatinine and urine sodium to evaluate FENA (Fraction excretion of sodium). Monitor on cardiac telemetry. Obtain urinalysis to rule out urinary tract infection. Recheck sodium at 1400 today and continue to follow serial levels. Was given 1 liter NS in Er. Continue NS at 75 mL per hour for gentle hydration and to help normalize serum sodium. Possible mineralocorticoid deficiency as potassium upper limits of normal. Will start Florinef 0.1mg daily. Patient may have Reglan as needed for nausea, encourage full liquid diet only and advance as tolerated. SCDs to bilateral lower extremity for DVT prophylaxis. Pharmacy consult to follow INR and Coumadin dosing Given hx of AVR. Once more medical stable will consult PT/OT. Does wish to be a full code and this orders written. At time of discharge medical care will return to primary care provider, Dr Mane.
[2017-10-22] MEDS ORDERED: WARFARIN 5 MG TABLET PO SCH (12:00)
--- NOTE | 2017-10-22 12:05 | Pharmacy Consult ---
Pharmacy Consult-Warfarin - Laboratory Information COUMADIN CONSULT (Initial): Dx: HYPONATREMIA with N/V Baseline INR = 1.92 82 yr old male admitted for Hyponatremia. He is 5'9" 59.8 kg on warfarin at home for A-Fib. His home dose of warfarin is 5 mg daily. Will give Warfarin 5 mg today. Pharmacy will monitor the INR and adjust the Warfarin dose as needed. Thank you. Shwetha Aponte, MeganD
[2017-10-22] MEDS: FLUDROCORTISONE 0.1 MG TABLET PO SCH (14:11)
[2017-10-22] MEDS: NS 1,000 ML IV SCH (19:41)
[2017-10-22] MEDS: SOTALOL 80 MG TABLET PO SCH (20:11)
[2017-10-22] MEDS: TAMSULOSIN 0.4 MG CAPSULE PO SCH (20:12)
[2017-10-23] MEDS: FLUDROCORTISONE 0.1 MG TABLET PO SCH (09:14)
[2017-10-23] MEDS: FERROUS SULFATE 324 MG TABLET PO SCH (09:14)
[2017-10-23] MEDS: FINASTERIDE 5 MG TABLET PO SCH (09:14)
[2017-10-23] MEDS: SOTALOL 80 MG TABLET PO SCH ×2 (09:15→21:56)
[2017-10-23] MEDS ORDERED: FUROSEMIDE 20 MG/2 ML INJECTION IVP ONE (10:10)
--- NOTE | 2017-10-23 10:19 | Progress Note ---
- Date 10/23/17 Subjective: Mr. Valle is seen today in follow-up. He is feeling quite a lot better, is eating full liquid diet without difficulty. He denies any pain, denies nausea or vomiting. Reports that today is his '[birth year] birthday, and he was hoping to return home to see her today. He denies any other acute complaints or concerns. Chart is reviewed for collateral information. Objective Vital signs: Temperature 96.7 F L 10/23/17 07:09 Pulse Rate 60 10/23/17 09:15 Respiratory Rate 12 10/23/17 07:09 Blood Pressure 135/60 10/23/17 07:09 Pulse Oximetry 99 10/23/17 07:09 Height/Weight/BMI: Height 1.75 m Weight 59.7 kg Body Mass Index 19.4 Comments: Gen.: Patient is awake, alert. He is very pleasant and appears well. Head: Atraumatic, normocephalic. ENT: External normal. Cardiovascular: S1, S2. Regular rate and rhythm. No peripheral edema. Pulm: Lungs clear to auscultation bilaterally. Respirations even, unlabored. Abdomen: Soft, nontender, nondistended. Extremities: No edema, cyanosis or clubbing. Neuro: Patient is awake, alert. Conversation is appropriate. Moving all extremities without difficulty. Results - Labs CBC & Chem 7: 10/23/17 04:37 10/23/17 15:39 - Imaging and Cardiology CT scan - head Additional comments: Impression: Stable appearance of the large sellar area mass. No acute hemorrhage or obvious stroke. There is a preliminary report by virtual radiologic. . Assessment and Plan (1) Hyponatremia Current visit: Yes Status: Acute Assessment and Plan: Impression Hyponatremia- POA- 117 Nausea and vomiting Bladder malignancy CKD-3 Aortic valve replacement- Chronic anticoagulation Atrial fibrillation Pituitary macroadenoma BPH Chronic Anemia Plan 10/23/2017 Hyponatremia remains fairly severe, with very low serum osmolarity. 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 (could also consider Cerebral Salt Wasting). Pt. has a very large sellar mass, with known pituitary microadenoma. This would lead concern to central underlying cause of his recurrent hyponatremia. We'll stop the IV fluids, as sodium is trending down. Give Lasix 20 mg IV 1 now. Initiate fluid restriction, 1500 mL per day. Add Salt tabs, start demeclocycline in the morning. Repeat BMP this afternoon, allow slow return to normal Na to prevent neurologic side effects. We may need to consider adding DDAVP if we cannot normalize sodium with oral measures. Could also consider outpatient referral to endocrinology or nephrology if hyponatremia remains ongoing. Neurologically, he remains intact. Ongoing significant anemia, with some delusional component. He did undergo a bone marrow biopsy earlier this year. There was no evidence of any underlying hematological cause. [place] to be likely nutritional in origin. Will assess B12 and folate. Iron panel was previously done, and reviewed. Continue by mouth iron. Nausea and vomiting have resolved. Advance diet as tolerated. Continue supportive care. Repeat labs in the morning. Will need outpatient follow up for high grade bladder malignancy. DVT Prophylaxis: Coumadin Resuscitation Status: Full Code - Time spent with patient Time with patient PN: 25 minutes - Physician Narrative Physician: Russ Quinn MD Narrative: Date: 10/23/17 Time: 1015 Have independently interviewed and examined pt. Chart reviewed. Case discussed with my VIBRATOR OPERATOR. Care plan developed with my supervision; agree with above. Feels well overall-would like to walk more. Wants to go home; today is 's B- Day and has family in from out of town. No specific complaints. Breathing feels well-no cough or congestion. Denies chest pressure or pain. Eating well. No ab pain. No nausea. Denies dizziness or headache. Feels strength stable. Lungs: decreased, no distress CV: irregular with click. AB: soft nt BS decreased EXT: no edema MSE: awake alert GEN: looks more tired today, less animated Plan: Above noted changes made by my VIBRATOR OPERATOR. Sodium recheck 120. Will restart NS to help with sodium normalization. Nursing to ambulate pt TID. Monitor lab. Ferritin/Iron pending - if still slow, would give IV iron infusion. Hospital Course Summary Disclaimer: The visit summary below is not to be considered part of the above Progress Note. Hospital Course: 10/22/17 Admit patient as inpatient status under the care of Dr Quinn for Hyponatremia, N/V. Obtain urine creatinine and urine sodium to evaluate FENA (Fraction excretion of sodium). Monitor on cardiac telemetry. Obtain urinalysis to rule out urinary tract infection. Recheck sodium at 1400 today and continue to follow serial levels. Was given 1 liter NS in Er. Continue NS at 75 mL per hour for gentle hydration and to help normalize serum sodium. Possible mineralocorticoid deficiency as potassium upper limits of normal. Will start Florinef 0.1mg daily. Patient may have Reglan as needed for nausea, encourage full liquid diet only and advance as tolerated. SCDs to bilateral lower extremity for DVT prophylaxis. Pharmacy consult to follow INR and Coumadin dosing Given hx of AVR. Once more medical stable will consult PT/OT. Does wish to be a full code and this orders written. At time of discharge medical care will return to primary care provider, Dr Mane. 10/23/17 Hyponatremia remains fairly severe, with very low serum osmolarity. 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 (could also consider Cerebral Salt Wasting). Pt. has a very large sellar mass, with known pituitary microadenoma. This would lead concern to central underlying cause of his recurrent hyponatremia. We'll stop the IV fluids, as sodium is trending down. Give Lasix 20 mg IV 1 now. Initiate fluid restriction, 1500 mL per day. Add Salt tabs, start demeclocycline in the morning. Repeat BMP this afternoon, allow slow return to normal Na to prevent neurologic side effects. We may need to consider adding DDAVP if we cannot normalize sodium with oral measures. Could also consider outpatient referral to endocrinology or nephrology if hyponatremia remains ongoing. Neurologically, he remains intact. Ongoing significant anemia, with some delusional component. He did undergo a bone marrow biopsy earlier this year. There was no evidence of any underlying hematological cause. [place] to be likely nutritional in origin. Will assess B12 and folate. Iron panel was previously done, and reviewed. Continue by mouth iron. Nausea and vomiting have resolved. Advance diet as tolerated. Continue supportive care. Repeat labs in the morning. Will need outpatient follow up for high grade bladder malignancy.
--- NOTE | 2017-10-23 11:07 | Pharmacy Consult ---
Pharmacy Consult-Warfarin - Laboratory Information 10/23/17 10/23/17 04:37 04:37 Hgb 7.6 L D Hct 23.3 L INR 2.11 H - Consult Information COUMADIN CONSULT (Recurring): Dx: HYPONATREMIA Baseline INR = 1.92 82 yr old male admitted for Hyponatremia. He is 5'9" 59.8 kg on warfarin at home for A-Fib. His home dose of warfarin is 5 mg daily. DATE INR DOSE 10/22 1.92 5 MG 10/23 2.11 Will give Warfarin 5 MG today Pharmacy will continue to monitor the INR and adjust the Warfarin dose as needed. Thank you. Shwetha Aponte, PharmD
[2017-10-23] MEDS: SODIUM CHLORIDE 1 GM TABLET PO SCH ×4 (11:16→21:56)
[2017-10-23] MEDS: SALINE FLUSH 10ml SYRINGE IVF PRN (11:16)
[2017-10-23] MEDS: NS 1,000 ML IV SCH ×2 (11:28→17:08)
[2017-10-23] MEDS ORDERED: WARFARIN 5 MG TABLET PO SCH (12:00)
[2017-10-23] MEDS: TAMSULOSIN 0.4 MG CAPSULE PO SCH (21:56)
--- NOTE | 2017-10-24 07:31 | Pharmacy Consult ---
Pharmacy Consult-Warfarin - Laboratory Information 10/23/17 10/23/17 10/24/17 04:37 04:37 03:56 Hgb 7.6 L D Hct 23.3 L INR 2.11 H 2.42 H 10/24/17 03:56 Hgb 7.5 L Hct 23.0 L INR - Consult Information Warfarin protocol: day 3 82 y.o. male with history of A-Fib and chronic anticoagulation with warfarin. Home dose= warfarin 5 mg po daily. goal INR range = 2.0 to 3.0. DATE INR DOSE 10/22 1.92 5 mg 10/23 2.11 5 mg 10/24 2.25 plan: 4 mg po x 1 dose INR is in therapeutic range. Will give warfarin 4 mg po x 1 dose today. Potential drug-drug interaction exists between demeclocycline and warfarin. This interaction may increase the INR and risk of bleeding. Pharmacy will continue to monitor the INR and adjust the Warfarin dose as needed. Thank you, Silvia Skinner RP
[2017-10-24] MEDS: NS 1,000 ML IV SCH ×2 (08:21→22:52)
[2017-10-24] MEDS: SODIUM CHLORIDE 1 GM TABLET PO SCH ×4 (09:10→21:44)
[2017-10-24] MEDS: FLUDROCORTISONE 0.1 MG TABLET PO SCH (09:10)
[2017-10-24] MEDS: FINASTERIDE 5 MG TABLET PO SCH (09:11)
[2017-10-24] MEDS: SOTALOL 80 MG TABLET PO SCH ×2 (09:11→21:45)
[2017-10-24] MEDS: FERROUS SULFATE 324 MG TABLET PO SCH (09:11)
--- NOTE | 2017-10-24 10:00 | Progress Note ---
- Date 10/24/17 Subjective: Neema was sitting on the side of his bed. He states that he feels fine and wants to go home. He has no complaints otherwise (i.e. chest pain, SOA, abd pain , dizziness, weakness). He's A&O x3. His RN reports that he has a steady gait. Objective Vital signs: Temperature 96.7 F L 10/24/17 08:00 Pulse Rate 60 10/24/17 09:11 Respiratory Rate 16 10/24/17 08:00 Blood Pressure 101/59 10/24/17 08:00 Pulse Oximetry 100 10/24/17 08:00 Height/Weight/BMI: Height 1.75 m Weight 59.4 kg Body Mass Index 19.4 - Constitutional Present: no acute distress, well nourished, well developed, thin - Routine HEENT Exam Head: Present: normocephalic Eye: Absent: conjunctival icterus, scleral injection ENT: Present: mucous membranes moist, oropharynx clear - Routine Respiratory Exam Present: CTA bilaterally - Routine Cardiovascular Exam Present: RRR, S1, S2, click - Routine Abdominal Exam Present: soft, normoactive bowel sounds, non distended, non tender - Routine Extremities Exam Present: edema (1+ BLE) - Routine Skin Exam Present: intact, dry, warm - Routine Neurological Exam Present: alert, oriented X3, moving all extremities, normal speech. Absent: facial asymmetry - Routine Psychiatric Exam Present: normal affect, normal thought process, cooperative Results - Labs CBC & Chem 7: 10/24/17 03:56 10/24/17 03:56 Assessment and Plan (1) Hyponatremia Current visit: Yes Status: Acute Assessment and Plan: Impression Hyponatremia- POA- 117 Nausea and vomiting Bladder malignancy CKD-3 Aortic valve replacement- Chronic anticoagulation Atrial fibrillation Pituitary macroadenoma BPH Chronic Anemia Plan 10/24/2017 Hyponatremia slowly improving, up to 122. Repeat this afternoon. Cont NS, demeclocycline, salt tabs, florinef. Hgb 7.5. Iron level low at 34 - IV iron ordered. Vit B12 808, Folate 11.9. Discussed with RN & with Dr. Quinn. DVT Prophylaxis: SCD's Resuscitation Status: Full Code - Time spent with patient Time with patient PN: 25 minutes - Physician Narrative Physician: Russ Quinn MD Narrative: Date: 10/24/17 Time: 1132 Have independently interviewed and examined pt. Chart reviewed. Case discussed with CM and my BULK PICKER. Care pain developed with my supervision; agree with above. Feels well-has been up walking and not feeling overtly weak or unsteady. No muscle aches/pain/cramps. Breathing well. No chest pain. Eating well without ab pain or nausea. Urinating well. Lungs: decreased, no distress CV: irregular with click AB: soft nt Ext: no edema MSE: awake alert Plan: Sodium with increase to 122 - will continue treatments and recheck this afternoon. Iron level low - will give IV Iron as levels consistently low despite oral replacement. Encourage continued activities to maintain strength. Discussed with patient the rational behind need for continued hospitalization. Hospital Course Summary Disclaimer: The visit summary below is not to be considered part of the above Progress Note. Hospital Course: 10/22/17 Admit patient as inpatient status under the care of Dr Quinn for Hyponatremia, N/V. Obtain urine creatinine and urine sodium to evaluate FENA (Fraction excretion of sodium). Monitor on cardiac telemetry. Obtain urinalysis to rule out urinary tract infection. Recheck sodium at 1400 today and continue to follow serial levels. Was given 1 liter NS in Er. Continue NS at 75 mL per hour for gentle hydration and to help normalize serum sodium. Possible mineralocorticoid deficiency as potassium upper limits of normal. Will start Florinef 0.1mg daily. Patient may have Reglan as needed for nausea, encourage full liquid diet only and advance as tolerated. SCDs to bilateral lower extremity for DVT prophylaxis. Pharmacy consult to follow INR and Coumadin dosing Given hx of AVR. Once more medical stable will consult PT/OT. Does wish to be a full code and this orders written. At time of discharge medical care will return to primary care provider, Dr aMne. 10/23/17 Hyponatremia remains fairly severe, with very low serum osmolarity. 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 (could also consider Cerebral Salt Wasting). Pt. has a very large sellar mass, with known pituitary microadenoma. This would lead concern to central underlying cause of his recurrent hyponatremia. We'll stop the IV fluids, as sodium is trending down. Give Lasix 20 mg IV 1 now. Initiate fluid restriction, 1500 mL per day. Add Salt tabs, start demeclocycline in the morning. Repeat BMP this afternoon, allow slow return to normal Na to prevent neurologic side effects. We may need to consider adding DDAVP if we cannot normalize sodium with oral measures. Could also consider outpatient referral to endocrinology or nephrology if hyponatremia remains ongoing. Neurologically, he remains intact. Ongoing significant anemia, with some delusional component. He did undergo a bone marrow biopsy earlier this year. There was no evidence of any underlying hematological cause. [place] to be likely nutritional in origin. Will assess B12 and folate. Iron panel was previously done, and reviewed. Continue by mouth iron. Nausea and vomiting have resolved. Advance diet as tolerated. Continue supportive care. Repeat labs in the morning. Will need outpatient follow up for high grade bladder malignancy. 10/24/17 Hyponatremia slowly improving, up to 122. Repeat this afternoon. Cont NS, demeclocycline, salt tabs, Florinef. Hgb 7.5. Iron level low at 34 - IV iron ordered. Vit B12 808, Folate 11.9.
[2017-10-24] MEDS ORDERED: IRON - PHARMACY CONSULT MC ONE (11:04)
[2017-10-24] MEDS ORDERED: WARFARIN 4 MG TABLET PO SCH (12:00)
[2017-10-24] MEDS: DEMECLOCYCLINE 150 MG TABLET PO SCH (13:12)
--- NOTE | 2017-10-24 13:15 | Pharmacy Consult ---
Pharmacy Consult-Iron - Laboratory Information Iron Labs 10/23/17 10/23/17 10/24/17 04:37 04:37 03:56 Hgb 7.6 L D 7.5 L Hct 23.3 L 23.0 L Iron 34 L TIBC 264 % Saturation 13 - Consult Information Iron consult: 82 y.o. male with iron deficiency anemia. Iron consult ordered. Due to unavailable Iron Dextran, will use Injectafer adult dosing for weight 50 KG or greater: pt. weight 59.4 KG. Injectafer (ferric carboxymaltose) 750 mg IV in 250 mg NS over 30 minutes. Then repeat dose in 7 days. Will instruct nursing to monitor patient for hypersensitivity reaction during infusion and 30 minutes post infusion. Thank you for the iron dosing consult, Silvia Skinner RPh
[2017-10-24] MEDS ORDERED: FERRIC CARBOXYMALTOSE 750 MG in NS 250ml 250 ML IV SCH (16:00)
[2017-10-24] MEDS: TAMSULOSIN 0.4 MG CAPSULE PO SCH (21:44)
[2017-10-25 07:12] VITALS: RESP 16; O2SAT 100
--- NOTE | 2017-10-25 08:17 | Pharmacy Consult ---
Pharmacy Consult-Warfarin - Laboratory Information 10/23/17 10/23/17 10/24/17 04:37 04:37 03:56 Hgb 7.6 L D Hct 23.3 L INR 2.11 H 2.42 H 10/24/17 10/25/17 10/25/17 03:56 04:17 04:17 Hgb 7.5 L 7.4 L Hct 23.0 L 22.5 L INR 2.61 H - Consult Information Warfarin protocol: day 3 82 y.o. male with history of A-Fib and chronic anticoagulation with warfarin. Home dose= warfarin 5 mg po daily. goal INR range = 2.0 to 3.0. DATE INR DOSE 10/22 1.92 5 mg 10/23 2.11 5 mg 10/24 2.25 4 mg 10/25 2.61 plan: 4 mg INR is in therapeutic range. Will give warfarin 4 mg po x 1 dose today. Potential drug-drug interaction exists between demeclocycline and warfarin. This interaction may increase the INR and risk of bleeding. Pharmacy will continue to monitor the INR and adjust the Warfarin dose as needed. Thank you, Silvia Skinner [facility]
[2017-10-25] MEDS: SOTALOL 80 MG TABLET PO SCH ×2 (08:37→20:35)
[2017-10-25] MEDS: DEMECLOCYCLINE 150 MG TABLET PO SCH (08:37)
[2017-10-25] MEDS: SODIUM CHLORIDE 1 GM TABLET PO SCH ×4 (08:37→20:34)
[2017-10-25] MEDS: FLUDROCORTISONE 0.1 MG TABLET PO SCH (08:37)
[2017-10-25] MEDS: FINASTERIDE 5 MG TABLET PO SCH (08:37)
[2017-10-25] MEDS: FERROUS SULFATE 324 MG TABLET PO SCH (08:37)
--- NOTE | 2017-10-25 09:40 | Progress Note ---
- Date 10/25/17 Subjective: Mr. Valle is seen today while sitting up on the edge of his bed, watching TV and mumbling to himself. He reports that he feels "great, like a 32 year-old" and is very eager for discharge stating he needs to get home to his . He denies any complaints or concerns. No chest pain, shortness of breath, dizziness, lightheadedness, syncope, abdominal pain, nausea, vomiting or dysuria. His appetite is good and urinary output is stable. Labs revealed slight worsening in leukopenia (WBC 2.8) as well as slight decrease in hemoglobin (Hgb 7.4). Sodium slowly improving (Na 126). INR stable at 2.61. Objective Vital signs: Temperature 97.3 F 10/25/17 07:10 Pulse Rate 68 10/25/17 08:37 Respiratory Rate 16 10/25/17 07:10 Blood Pressure 121/65 10/25/17 07:10 Pulse Oximetry 100 10/25/17 07:10 Height/Weight/BMI: Height 5 ft 9 in Weight 138 lb 0.15 oz Body Mass Index 19.4 Comments: Sitting on edge of bed, eager for discharge. - Constitutional Present: no acute distress, well nourished, well developed, thin, cooperative - Routine HEENT Exam Head: Present: normocephalic, atraumatic Eye: Present: PERRL. Absent: conjunctival icterus ENT: Present: mucous membranes moist, oropharynx clear - Routine Respiratory Exam Present: CTA bilaterally. Absent: respiratory distress, wheezes - Routine Cardiovascular Exam Present: RRR, S1, S2, click - Routine Abdominal Exam Present: soft, normoactive bowel sounds, non tender - Routine Extremities Exam Present: no edema, full ROM, pulses intact - Routine Back/Spine/Pelvis Exam Back/Spine: Present: full ROM. Absent: vertebral tenderness - Routine Musculoskeletal Exam Musculoskeletal: Present: no clubbing or cyanosis, moving extremities well - Routine Skin Exam Present: intact, dry, warm Comments: Afebrile. - Routine Neurological Exam Present: alert, moving all extremities, hearing grossly intact, normal speech - Routine Lymphatic Exam Lymphatic: Absent: lymphedema - Routine Psychiatric Exam Present: cooperative Results - Labs CBC & Chem 7: 10/25/17 04:17 10/25/17 18:45 Assessment and Plan (1) Hyponatremia Current visit: Yes Status: Acute Assessment and Plan: Impression Hyponatremia - POA- 117 Nausea and vomiting Bladder malignancy CKD-3 Aortic valve replacement- Chronic anticoagulation Atrial fibrillation Pituitary macroadenoma BPH Chronic Anemia Plan Patient is very eager for discharge home. Na slowly improving - 126. Continue FR 1500cc. Will recheck BMP this afternoon at 1400. Continue demeclocycline, florinef, salt tabs and NS 75cc/hr for hyponatremia. Patient given IV iron on 10/24/17. Continue to monitor hemoglobin closely. Slight decrease today at hgb 7.4 - asymptomatic. INR stable per pharmacy. DVT Prophylaxis: SCD's Resuscitation Status: Full Code - Time spent with patient Time with patient PN: 25 minutes - Physician Narrative Physician: Russ Quinn MD Narrative: Date: 10/25/17 Time: 1955 Have independently interviewed & examined pt. Chart reviewed. Case discussed with CM & my PA. Care plan developed with my supervision; agree with above. Feels well-ambulating in halls without difficulty. Breathing well. Eating well. Lungs: decreased, clear-no distress CV: irregularly irregular AB: soft nt/nd EXT: +1 edema MSE: awake alert appropriate Plan: Was very insistent on going home this morning-reported that he needed to he home at noon for something (but would not say what it was). Sodium 126 this am-rechecked at noon showing increase to 129. Did stop IVF at patient request. Doing well this afternoon. Recheck sodium this evening stable at 129. Patient very insistent on going home (would leave AMA). With him clinically doing well, do feel discharge is reasonable. Will continue with Florinef 0.1mg daily. Recommend about 2 quarts of fluid a day. Would not add excessive sodium. Patient to check weight daily and watch for increased swelling to legs Will follow up with Dr Mnae in about 1 week - recommend checking BMP at that time due to hyponatremia and recheck CBC due to anemia and INR due to Coumadin use. See orders for details. Hospital Course Summary Disclaimer: The visit summary below is not to be considered part of the above Progress Note. Hospital Course: 10/22/17 Admit patient as inpatient status under the care of Dr Quinn for Hyponatremia, N/V. Obtain urine creatinine and urine sodium to evaluate FENA (Fraction excretion of sodium). Monitor on cardiac telemetry. Obtain urinalysis to rule out urinary tract infection. Recheck sodium at 1400 today and continue to follow serial levels. Was given 1 liter NS in Er. Continue NS at 75 mL per hour for gentle hydration and to help normalize serum sodium. Possible mineralocorticoid deficiency as potassium upper limits of normal. Will start Florinef 0.1mg daily. Patient may have Reglan as needed for nausea, encourage full liquid diet only and advance as tolerated. SCDs to bilateral lower extremity for DVT prophylaxis. Pharmacy consult to follow INR and Coumadin dosing Given hx of AVR. Once more medical stable will consult PT/OT. Does wish to be a full code and this orders written. At time of discharge medical care will return to primary care provider, Dr Mane. 10/23/17 Hyponatremia remains fairly severe, with very low serum osmolarity. 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 (could also consider Cerebral Salt Wasting). Pt. has a very large sellar mass, with known pituitary microadenoma. This would lead concern to central underlying cause of his recurrent hyponatremia. We'll stop the IV fluids, as sodium is trending down. Give Lasix 20 mg IV 1 now. Initiate fluid restriction, 1500 mL per day. Add Salt tabs, start demeclocycline in the morning. Repeat BMP this afternoon, allow slow return to normal Na to prevent neurologic side effects. We may need to consider adding DDAVP if we cannot normalize sodium with oral measures. Could also consider outpatient referral to endocrinology or nephrology if hyponatremia remains ongoing. Neurologically, he remains intact. Ongoing significant anemia, with some delusional component. He did undergo a bone marrow biopsy earlier this year. There was no evidence of any underlying hematological cause. [place] to be likely nutritional in origin. Will assess B12 and folate. Iron panel was previously done, and reviewed. Continue by mouth iron. Nausea and vomiting have resolved. Advance diet as tolerated. Continue supportive care. Repeat labs in the morning. Will need outpatient follow up for high grade bladder malignancy. 10/24/17 Hyponatremia slowly improving, up to 122. Repeat this afternoon. Cont NS, demeclocycline, salt tabs, Florinef. Hgb 7.5. Iron level low at 34 - IV iron ordered. Vit B12 808, Folate 11.9. 10/25/17 Patient is very eager for discharge home. Was very insistent on going home this morning-reported that he needed to he home at noon for something (but would not say what it was). Sodium 126 this am-rechecked at noon showing increase to 129. Did stop IVF at patient request. Doing well this afternoon. Recheck sodium this evening stable at 129. Patient still very insistent on going home (would leave AMA). With him clinically doing well, do feel discharge is reasonable. Will continue with Florinef 0.1mg daily. Recommend about 2 quarts of fluid a day. Would not add excessive sodium. Patient to check weight daily and watch for increased swelling to legs Will follow up with Dr Mane in about 1 week - Recommend checking BMP at that time due to hyponatremia and recheck CBC due to anemia and INR due to Coumadin use. See orders for details.
[2017-10-25] MEDS ORDERED: FUROSEMIDE 20 MG/2 ML INJECTION IVP ONE (09:59)
[2017-10-25] MEDS: SALINE FLUSH 10ml SYRINGE IVF PRN (10:32)
[2017-10-25] MEDS ORDERED: WARFARIN 4 MG TABLET PO SCH (12:00)
[2017-10-25] MEDS: NS 1,000 ML IV SCH (12:39)
[2017-10-25 15:13] VITALS: BP 131/54; TEMP 96.1
--- NOTE | 2017-10-25 20:18 | Discharge Summary ---
Discharge Information Date of admission: 10/22/17 10:35 Anticipated date of discharge: 10/25/17 Attending Physician: Russ Quinn MD Primary care physician: Pedro Mane II, MD - Discharge Diagnosis (1) Hyponatremia Status: Acute Discharge diagnosis Hyponatremia Associated conditions and complications Nausea and vomiting Bladder malignancy CKD-3 Aortic valve replacement- Chronic anticoagulation Atrial fibrillation Pituitary macroadenoma BPH Chronic Anemia - Procedures Procedures: IV Iron Infusion - 10/24/17 - Laboratory Labs: Admit Lab 10/22/17 09:35 WBC 3.1 L Hgb 8.6 L Hct 26.1 L MCV 70.7 L Plt Count 173 Neut % (Auto) 29.0 L Lymph % (Auto) 52.6 H [place] % (Auto) 8.4 Eos % (Auto) 9.4 H Baso % (Auto) 0.6 Admit Lab 10/22/17 10/22/17 09:35 09:35 Sodium 117 L* Potassium 4.7 Chloride 87 L Carbon Dioxide 23 Anion Gap 7 BUN 12.0 Creatinine 1.1 GFR Calculation 64 BUN/Creatinine Ratio 11 Glucose 112 H Calculated Osmolality 228 L Calcium 8.8 Total Bilirubin 0.60 AST 40 ALT 16 Alkaline Phosphatase 168 H Total Protein 7.2 Albumin 3.9 Globulin 3.3 Albumin/Globulin Ratio 1.2 Lipase 85 TSH 2.17 Laboratory Tests 10/23/17 10/24/17 04:37 03:56 Iron 34 L TIBC 264 % Saturation 13 Ferritin 360 Vitamin B12 808 Folate 11.9 10/25/17 04:17 10/25/17 18:45 History of Present Illness HPI: Mr Valle is a 82 yr old male who is known to the hospitalist services from previous admissions. Today he presented to the emergency room for acute evaluation of nausea and vomiting. He has had nausea for the past 4 days and had episode of vomiting this morning. Further medical workup was performed today in the emergency room. Patient was found to have leukopenia with a white count of 3.9, hemoglobin 8.6, hematocrit 26.1, platelet count 173. INR 1.92. He was found to be significantly diminished at 117, potassium 4.7, chemistry panel otherwise unremarkable, TSH 2.17, lipase 85. Signs are stable. In the emergency room and patient is afebrile. Given his symptomatic hyponatremia. The hospitalist services were contacted and accepted patient for inpatient admission for further evaluation and treatment. It is expected that his stay will be greater than 2 overnights. Alonso was recently hospitalized on 09/23/17 for weakness and hyponatremia. He was discharged on 09/28/17 and reports had been doing well up until the last 3 -4 days. Knee recent fevers, chills, bowel pain. Did undergo resection of bladder tumor greater than 5 centimeters on 09/08/17 under the care of Dr. Carr. 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 Did discuss advance directives patient does wish to be a full code. For complete details of the H&P refer to that document. Objective Vital signs: Temperature 96.1 F L 10/25/17 15:10 Pulse Rate 60 10/25/17 15:37 Respiratory Rate 16 10/25/17 15:10 Blood Pressure 131/54 10/25/17 15:10 Pulse Oximetry 100 10/25/17 15:10 Height/Weight/BMI: Height 1.75 m Weight 62.6 kg Body Mass Index 19.4 Hospital Course This is a general summary of the patient's hospital course. For more details refer to the complete medical record. Hospital course: 10/22/17 Admit patient as inpatient status under the care of Dr Quinn for Hyponatremia, N/V. Obtain urine creatinine and urine sodium to evaluate FENA (Fraction excretion of sodium). Monitor on cardiac telemetry. Obtain urinalysis to rule out urinary tract infection. Recheck sodium at 1400 today and continue to follow serial levels. Was given 1 liter NS in Er. Continue NS at 75 mL per hour for gentle hydration and to help normalize serum sodium. Possible mineralocorticoid deficiency as potassium upper limits of normal. Will start Florinef 0.1mg daily. Patient may have Reglan as needed for nausea, encourage full liquid diet only and advance as tolerated. SCDs to bilateral lower extremity for DVT prophylaxis. Pharmacy consult to follow INR and Coumadin dosing Given hx of AVR. Once more medical stable will consult PT/OT. Does wish to be a full code and this orders written. At time of discharge medical care will return to primary care provider, Dr Mane. 10/23/17 Hyponatremia remains fairly severe, with very low serum osmolarity. 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 (could also consider Cerebral Salt Wasting). Pt. has a very large sellar mass, with known pituitary microadenoma. This would lead concern to central underlying cause of his recurrent hyponatremia. We'll stop the IV fluids, as sodium is trending down. Give Lasix 20 mg IV 1 now. Initiate fluid restriction, 1500 mL per day. Add Salt tabs, start demeclocycline in the morning. Repeat BMP this afternoon, allow slow return to normal Na to prevent neurologic side effects. We may need to consider adding DDAVP if we cannot normalize sodium with oral measures. Could also consider outpatient referral to endocrinology or nephrology if hyponatremia remains ongoing. Neurologically, he remains intact. Ongoing significant anemia, with some delusional component. He did undergo a bone marrow biopsy earlier this year. There was no evidence of any underlying hematological cause. [place] to be likely nutritional in origin. Will assess B12 and folate. Iron panel was previously done, and reviewed. Continue by mouth iron. Nausea and vomiting have resolved. Advance diet as tolerated. Continue supportive care. Repeat labs in the morning. Will need outpatient follow up for high grade bladder malignancy. 10/24/17 Hyponatremia slowly improving, up to 122. Repeat this afternoon. Cont NS, demeclocycline, salt tabs, Florinef. Hgb 7.5. Iron level low at 34 - IV iron given. Vit B12 808, Folate 11.9. 10/25/17 Patient is very eager for discharge home. Was very insistent on going home this morning-reported that he needed to he home at noon for something (but would not say what it was). Sodium 126 this am-rechecked at noon showing increase to 129. Did stop IVF at patient request. Doing well this afternoon. Recheck sodium this evening stable at 129. Patient still very insistent on going home (would leave AMA). With him clinically doing well, do feel discharge is reasonable. Will continue with Florinef 0.1mg daily. Recommend about 2 quarts of fluid a day. Would not add excessive sodium. Patient to check weight daily and watch for increased swelling to legs Will follow up with Dr Mane in about 1 week - Recommend checking BMP at that time due to hyponatremia and recheck CBC due to anemia and INR due to Coumadin use. See orders for details. Time spent with patient: discharge greater than 30 minutes Resuscitation Status: Full Code Discharge Plan - Discharge Disposition Discharge Date: 10/25/17 Disposition: 01 Discharged Home, Self-Care *Condition: Stable Reason For Visit (Visit label in EMR): hyponatremia - Discharge Medications *Discharge Medications: New Fludrocortisone [Florinef] 0.1 mg PO DAILY #30 tab Continue Sotalol [Betapace] 80 mg PO BID Ferrous Sulfate [Iron] 325 mg PO DAILY Tamsulosin [Flomax] 0.4 mg PO HS Finasteride [Proscar] 5 mg PO DAILY Warfarin Sodium 5 mg PO NOON - Discharge Packet/Instructions *Diet: Regular diet. May have 2 quarts of fluid a day. May add salt to food as long as you do not develope swelling of legs. *Activity: As tolerated *Pain Management/Treatment: Continue prior home pain medicaitons *Wound Care: N/A Additional Instructions: Patient to check weight daily and watch for increased swelling to legs *Expected Signs/Symptoms: Continue stability of your functional status. *Notify Physician if: Temp >100.4. Increased swelling to legs or increasing weight. If you develope confusion it may be a sign your serum sodium is decreasing. *During Business Hours Contact: Dr Mane *After Business Hours Contact: Call [facility] and have Dr Mane contacted. *Pending Lab/Results: No Pending Lab - Referrals/Follow Up *Referrals/Follow Up: Pedro Mane II, MD [Primary Care Provider] - 1 Week (Hospital follow up for low sodium. Recommend rechecking BMP due to hyponatremia, CBC secondary to anemia, and INR due to Coumadin use. Call Dr Mane's office on [address] [facility] to schedule apt. ) - Patient Handouts Patient Handouts: Hyponatremia (GEN) - Dismissal Complete Discharge Instructions are:: Complete Physician Narrative - Narrative Physician: Russ Quinn MD Attestation Narrative: Date: 10/25/17 Time: 2014 I have independently interviewed and examined patient prior to discharge. See my progress note for details. Medically stable for discharge to home.
[2017-10-25] MEDS: TAMSULOSIN 0.4 MG CAPSULE PO SCH (20:34)
[2017-10-25 20:35] VITALS: PULSE 58
[2017-10-31] MEDS ORDERED: FERRIC CARBOXYMALTOSE 750 MG in NS 250ml 250 ML IV SCH (16:00)
== END 2017-10-25 21:15 | disposition home or self-care (01) | DRG 641 ==
LOC: ED 08:45 → EDHOLD 10:32 → MED 11:00
PROVIDERS: ADMIT Hospitalist; ATTEND Hospitalist